=== PATIENT | female | born 1955 | race African-American/Black ===

== ENCOUNTER → 2021-11-24 14:32 | Outpatient (CLI) | payer MEDICARE, OTHER, SELFPAY ==
--- NOTE | ~2021-11-24 | XR_ITS ---
EXAMINATION: XR knee RT 2V DATE: 11/24/2021 15:03 INDICATION: Right knee pain TECHNIQUE: Standing AP and lateral views of the right knee were obtained. COMPARISON: None. FINDINGS: Alignment is normal. No fracture. Mild joint space narrowing in the lateral compartment. Small margin al osteophytes with relatively preserved joint space in the medial and patellofemoral compartments. S oft tissues are unremarkable. No right knee joint effusion. IMPRESSION: 1. Tricompartmental osteoarthritis, mild in the lateral compartment and minimal in the medial and pat ellofemoral compartments. Reviewed, dictated and finalized at location A. HER TENDER HELPER IMPRESSION: 1. Tricompartmental osteoarthritis, mild in the lateral compartment and minimal in the medial and patellofemoral compartments.
== END ==
PROVIDERS: Visit Provider Nurse Practitioner Family
DX: M17.11 Unilateral primary osteoarthritis, right knee (principal)
CPT/HCPCS: 73560

== ENCOUNTER → 2021-12-01 12:02 | Outpatient (CLI) | payer MEDICARE, OTHER, SELFPAY ==
--- NOTE | ~2021-12-01 | MR_ITS ---
EXAMINATION: MR lumbar spine wo con EXAM DATE: 12/01/2021 12:51 INDICATION: LBP lower back pain TECHNIQUE: Multi-sequential, multiplanar MR images of the lumbar spine were obtained without contrast . Sagittal T1, T2, T2 fat saturation images. Axial T2 weighted images. Correlation was made with [facility] x-ray 2008. FINDINGS: There is moderate to severe disc disease at L4-5, moderate at L3-4 with 5 mm anterolisthesi s, but no L3 spondylolysis suspected. Congenitally narrow L5-S1 disc height. Mild to moderate disc di sease L-1-L3. The conus medullaris terminates at the T12-L1 level and has normal signal intensity and morphology. There are no suspicious marrow signal abnormalities. Incompletely imaged right renal le christa, imaged portion is consistent with a cyst measuring about 3 cm. Level by level evaluation: T11-12: There is a minimal diffuse disc bulge. Facet arthropathy: Mild. Neural foraminal stenosis: No stenosis. Central canal stenosis: No stenosis. T12-L1: There is a minimal diffuse disc bulge. Facet arthropathy: None. Neural foraminal stenosis: No stenosis. Central canal stenosis: No stenosis. L1-L2: There is a mild diffuse disc bulge. Facet arthropathy: Mild to moderate. Neural foraminal stenosis: Mild left. Central canal stenosis: Minimal. L2-L3: There is a mild diffuse disc bulge. Facet arthropathy: Moderate. Neural foraminal stenosis: Moderate bilateral. Central canal stenosis: Mild. L3-L4: There is a moderate diffuse disc bulge. Facet arthropathy: Moderate to severe. Neural foraminal stenosis: Moderate right, mild to moderate left. Central canal stenosis: Mild. L4-L5: There is a mild diffuse disc bulge. Facet arthropathy: Mild to moderate. Neural foraminal stenosis: Mild to moderate bilateral, left greater than right. Central canal stenosis: No stenosis. L5-S1: There is a minimal diffuse disc bulge. Facet arthropathy: Mild. Neural foraminal stenosis: No stenosis. Central canal stenosis: No stenosis. IMPRESSION: 1. L2-3 moderate bilateral neural foraminal stenosis. 2. L3-4 grade 1 anterolisthesis, moderate right neural foraminal stenosis. 3. Moderate to severe L4-5 disc disease. Reviewed, dictated and finalized at location B. INUITY READER
== END ==
PROVIDERS: PCP Family Medicine; Visit Provider Nurse Practitioner Family
DX: M54.59 Other low back pain (principal); M51.36 Other intervertebral disc degeneration, lumbar region
CPT/HCPCS: 72148

== ENCOUNTER → 2021-12-01 12:10 | Outpatient (CLI) | payer MEDICARE, OTHER, SELFPAY ==
--- NOTE | ~2021-12-01 | MM_ITS ---
EXAMINATION: MM screening nena RT w eduardo HISTORY: Screening TECHNIQUE: Craniocaudal and mediolateral oblique 3-D tomosynthesis images were obtained and synthetic 2-D images were generated. CAD analysis was submitted and interpreted. COMPARISON: 06/16/2019 BREAST PARENCHYMAL COMPOSITION: Breast composed of scattered areas of fibroglandular density. FINDINGS: There is no evidence of suspicious mass, calcification, or architectural distortion to sugg est malignancy in the right breast. There has been no suspicious interval change. IMPRESSION: 1. No mammographic evidence of malignancy. 2. Recommend routine screening mammography in one year. BI-RADS Category 1: Negative Reviewed, dictated and finalized at location A. RINARIAN HELPER
== END ==
PROVIDERS: PCP Family Medicine; Visit Provider Family Medicine
DX: Z12.31 Encounter for screening mammogram for malignant neoplasm of breast (principal)
CPT/HCPCS: 77063; 77067

== ENCOUNTER 2022-11-25 10:39 | Emergency (ER) | payer MEDICARE, OTHER, SELFPAY ==
[2022-11-25 10:45] VITALS: BP 148/77; PULSE 68; RESP 18; TEMP 36.1; O2SAT 99
--- NOTE | 2022-11-25 11:51 | ED.BACK ---
HPI - Back Pain/Injury General Chief Complaint: Back Pain/Injury Stated Complaint: Back Pain Time Seen by Provider: 11/25/22 11:11 Source: patient and family Mode of arrival: ambulatory Limitations: no limitations History of Present Illness HPI Narrative: 67 years old -[place] female came to the emergency room with her from home complaining of pain at the right lower back, lumbar spine and sacrum and sacroiliac area started 3 days ago. History of advanced arthritis and spinal stenosis, on hydrocodone as needed, which sometime causing rash, patient preferred to not use it every day. Patient been driving for longer hours over the last few days which high likely triggered her lower back pain. She denies any fever, chills, nausea, vomiting, urinary symptoms, chest pain abdominal pain. Patient reports numbness of the right buttock. Patient had similar symptoms in the past on the left side and was treated with cortisone injection and physical therapy. Basically patient came today requesting a pain shot Pain worse with certain movement and position, better with certain position Related Data Home Medications Medication Instructions Recorded Confirmed albuterol sulfate 90 mcg/actuation inhalation 11/11/19 aerosol inhaler (ProAir HFA) ezetimibe 10 mg tablet (Zetia) mg 11/11/19 fluticasone 500 mcg-salmeterol 50 inhalation 11/11/19 mcg/dose blistr powdr for inhalation (Advair Diskus) metformin 500 mg tablet mg 11/11/19 verapamil 240 mg tablet,extended mg PO 11/11/19 release Allergies Allergy/AdvReac Type Severity Reaction Status Date / Time latex Allergy Intermediate RASH Verified 11/25/22 10:40 codeine Allergy Mild RASH Verified 11/25/22 10:40 Penicillins Allergy Mild RASH Verified 11/25/22 10:40 Review of Systems Review of Systems: All systems reviewed & are unremarkable except as noted in HPI and below Exam Narrative: General appearance: Well-developed, well-nourished Skin: Normal color Head: Normocephalic, nontraumatic Eyes: Clear conjunctiva ENT: Oropharynx normal, ears normal, nose normal Neck: Supple, nontender Chest and respiratory: Airway patent, no respiratory distress, no accessory muscle use Heart: Regular rate/rhythm Abdomen: Soft, nontender, no organomegaly, quiet bowel sounds Vascular: Normal peripheral pulses, normal capillary refill. Musculoskeletal: Diffuse tenderness right lower back, right buttock, sacroiliac joint area with deep palpation. Limited range of motion of the right hip because of the pain. No bruises, no swelling, no rash Neurologic: Alert and oriented ?3, RETAIL CASHIER ASSOCIATE is normal as tested, no gross motor deficit Course Vital Signs Vital signs: Vital Signs Temperature 36.1 C L 11/25/22 10:45 Pulse Rate 68 11/25/22 10:45 Respiratory Rate 18 11/25/22 10:45 Blood Pressure 148/77 H 11/25/22 10:45 Pulse Oximetry 99 11/25/22 10:45 Oxygen Delivery Room Air 11/25/22 10:45 Temperature 36.1 C L 11/25/22 10:45 Pulse Rate 62 11/25/22 12:04 Respiratory Rate 18 11/25/22 12:04 Blood Pressure 156/74 H 11/25/22 12:04 Pulse Oximetry 98 11/25/22 12:04 Oxygen Delivery Room Air 11/25/22 10:45 MDM - Back Pain/Injury MDM Narrative Medical decision making narrative: Patient is 67 years old -[place] female came to the hospital with pain at the right lower back, started 3 days ago, similar to her previous history of intermittent lower back pain secondary to sacroiliitis, spinal stenosis and chronic arthritis. Patient had a lot of sitting, driving for longer hours in the last few days which high likely the underlying cause of her symptoms. She denied any feve
[2022-11-25] MEDS: IBUPROFEN 600 MG TABLET PO (11:57)
[2022-11-25] MEDS: ONDANSETRON HCL ODT 4 MG TABLET PO (11:57)
[2022-11-25] MEDS: diazePAM (*CRX) 5 MG TABLET PO (11:57)
[2022-11-25] MEDS: HYDROmorphone HCL INJ (*CRX) 1 MG/ML SYR IM (11:58)
[2022-11-25 12:04] VITALS: BP 156/74; PULSE 62; RESP 18; O2SAT 98
== END 2022-11-25 13:39 | disposition home or self-care (01) ==
PROVIDERS: Emergency Provider Emergency Medicine; PCP Family Medicine
DX: M54.50 Low back pain, unspecified (principal); G89.29 Other chronic pain; M48.00 Spinal stenosis, site unspecified; E11.9 Type 2 diabetes mellitus without complications; J45.909 Unspecified asthma, uncomplicated; E78.00 Pure hypercholesterolemia, unspecified; I10 Essential (primary) hypertension; Z79.84 Long term (current) use of oral hypoglycemic drugs
CPT/HCPCS: 96372; 99283; A9270; J1170

== ENCOUNTER 2023-10-25 07:55 | Emergency (ER) | payer MEDICARE, OTHER, SELFPAY ==
--- NOTE | ~2023-10-25 | XR_ITS ---
EXAMINATION: XR shoulder RT min 2V INDICATION: Right shoulder pain TECHNIQUE: Four views of the right shoulder are submitted. COMPARISON: None FINDINGS: Normal alignment. No fracture. There is moderate osteoarthritis of the acromioclavicular an d glenohumeral joints. Soft tissues are unremarkable. IMPRESSION: 1. No acute osseous abnormality. Reviewed, dictated and finalized at location L. ORATOR LOADER
--- NOTE | ~2023-10-25 | XR_ITS ---
EXAMINATION:XR_[id number]_CR DATE: 10/25/2023 08:51 INDICATION: Neck pain TECHNIQUE: AP, lateral, and odontoid views of the cervical spine are provided. COMPARISON: None FINDINGS: Alignment is normal. The odontoid process is intact. No fracture is identified. The vertebr al body heights are maintained. There is moderate loss of intervertebral disc space height throughout the cervical spine. There is multilevel moderate to severe facet and uncovertebral joint osteoarthri tis. Surgical clips project over the left upper mediastinum. Prevertebral soft tissues are normal. IMPRESSION: 1. Moderate to severe cervical spondylosis without acute findings. Reviewed, dictated and finalized at location L. URCE RECOVERY SPECIALIST
[2023-10-25 07:55] VITALS: BP 159/102; PULSE 66; RESP 16; TEMP 36.2; O2SAT 97
--- NOTE | 2023-10-25 08:25 | ED.GENADULT ---
HPI - General Adult General Chief complaint: Extremity Injury, Upper Stated complaint: R SHOULDER AND NECK PAIN Time Seen by Provider: 10/25/23 08:00 History of Present Illness HPI narrative: 68-year-old female presenting to emergency department for evaluation of right shoulder and right back pain. Patient reports the pain did wake her up from sleeping. Patient describes muscular tenderness of right shoulder and right lateral neck. Patient did not take any medication for pain control. Patient reports approximately 1 month ago she did have a total hip. Patient denies any current chest pain or shortness of breath. Related Data Home Medications Medication Instructions Recorded Confirmed albuterol sulfate 90 mcg/actuation inhalation 11/11/19 aerosol inhaler (ProAir HFA) ezetimibe 10 mg tablet (Zetia) mg 11/11/19 fluticasone 500 mcg-salmeterol 50 inhalation 11/11/19 mcg/dose blistr powdr for inhalation (Advair Diskus) metformin 500 mg tablet mg 11/11/19 verapamil 240 mg tablet,extended mg PO 11/11/19 release Allergies Allergy/AdvReac Type Severity Reaction Status Date / Time latex Allergy Intermediate RASH Verified 10/25/23 08:07 codeine Allergy Mild RASH Verified 10/25/23 08:07 Penicillins Allergy Mild RASH Verified 10/25/23 08:07 Review of Systems Review of Systems: All systems reviewed & are unremarkable except as noted in HPI and below Exam Narrative: APPEARANCE: Well appearing, no pain, no distress, well-nourished. HEAD: normocephalic, atraumatic. EYES: PERRLA/EOMI, conjunctivae clear. NOSE: Normal no drainage EARS:TMS clear with good light reflex. THROAT: Pharynx clear, no exudate. NECK: Supple. No adenopathy, no masses. RESPIRATORY: Airway patent, respirations nonlabored. Clear to auscultation bilaterally, no rales, rhonchi, wheezing. CARDIOVASCULAR: Regular rate and rhythm without murmurs rubs or gallops. ABDOMINAL: Soft, nontender, nondistended, normal bowel sounds MUSCULOSKELETAL: Reproducible right lateral and right trapezius tenderness to palpation NEURO: Alert. Cranial nerves II through XII intact. grossly intact SKIN: Warm, dry. Normal Color Course Course Emergency Course: 68-year-old female present to the emergency department for evaluation of right shoulder and right lateral neck pain. Patient did feel improved with treatment. X-ray showed no fracture dislocation. Patient was updated on the results of workup and plan for treatment for home. Patient to be provided Flexeril for home and patient was encouraged to take her home Tylenol and ibuprofen for pain control. Patient was encouraged to have close follow-up with her primary care physician. All questions concerns were addressed. Vital Signs Vital signs: Vital Signs Temperature 97.2 F L 10/25/23 07:55 Pulse Rate 66 10/25/23 07:55 Respiratory Rate 16 10/25/23 07:55 Blood Pressure 159/102 H 10/25/23 07:55 Pulse Oximetry 97 10/25/23 07:55 Oxygen Delivery Room Air 10/25/23 07:55 Temperature 97.2 F L 10/25/23 07:55 Pulse Rate 66 10/25/23 07:55 Respiratory Rate 16 10/25/23 07:55 Blood Pressure 159/102 H 10/25/23 07:55 Pulse Oximetry 97 10/25/23 07:55 Oxygen Delivery Room Air 10/25/23 07:55 Medical Decision Making Differential Diagnosis Differential Diagnosis: Shoulder pain, neck pain Vital Signs Vital Signs: Vital Signs Temperature 97.2 F L 10/25/23 07:55 Pulse Rate 66 10/25/23 07:55 Respiratory Rate 16 10/25/23 07:55 Blood Pressure 159/102 H 10/25/23 07:55 Pulse Oximetry 97 10/25/23 07:55 Oxygen Delivery Room Air 10/25/23 07:55 Temperature 97.2 F L 10/25/23 07:55 Pulse Rate 66 10/25/23 07:55 Respiratory Rate 16 10/25/23 07:55 Blood Pressure 159/102 H 10/25/23 07:55 Pulse Oximetry 97 10/25/23 07:55 Oxygen Delivery Room Air 10/25/23 07:55 Imaging Data Radiologist's impression: Impressions Cervical Spine X-R
[2023-10-25] MEDS: HYDROmorphone HCL INJ (*CRX) 1 MG/ML SYR 0.5 MG IV PUSH (08:30)
[2023-10-25] MEDS: CYCLOBENZAPRINE HCL 10 MG TABLET PO (08:30)
== END 2023-10-25 10:30 | disposition home or self-care (01) ==
PROVIDERS: Emergency Provider Emergency Medicine; PCP Family Medicine
DX: S16.1XXA Strain of muscle, fascia and tendon at neck level, initial encounter (principal); E11.9 Type 2 diabetes mellitus without complications; Z79.84 Long term (current) use of oral hypoglycemic drugs; M47.812 Spondylosis without myelopathy or radiculopathy, cervical region; X58.XXXA Exposure to other specified factors, initial encounter
CPT/HCPCS: 72040; 73030; 96374; 99284; A9270; J1170

== ENCOUNTER 2024-01-03 10:42 | Emergency (ER) | payer MEDICARE, OTHER, SELFPAY ==
--- NOTE | ~2024-01-03 | XR_ITS ---
EXAMINATION: XR chest 2V DATE: 01/03/2024 11:52 INDICATION: Midsternal chest pain. Hypertension. TECHNIQUE: PA and lateral views of the chest were obtained. COMPARISON: Chest radiograph dated 10/03/2017 FINDINGS: Mild streaky bibasilar atelectasis. No pulmonary edema, pleural effusion or pneumothorax. The cardiom ediastinal silhouette is normal. Postoperative change of likely prior left mastectomy with left axill ricardo lymph node dissection. Surgical clips project over the region of the AP window. Moderate thoracic spondylosis. IMPRESSION: 1. Mild streaky bibasilar atelectasis. Reviewed, dictated and finalized at location A. HT MECHANIC
--- NOTE | ~2024-01-03 | CT_ITS ---
EXAMINATION: CTA chest PE abdomen pel DATE: 01/03/2024 15:59 INDICATION: Chest and abdominal pain TECHNIQUE: Computed tomography angiography (CTA) of the chest was performed with 100 mL Omnipaque-350 intravenous contrast timed to evaluate the pulmonary arteries. Subsequent postcontrast images of the abdomen and pelvis are obtained. Coronal maximum intensity projection 3D-reconstructions were create d by the technologist. The dose-length product (DLP) was 774.12 mGy-cm. Automated exposure control an d iterative reconstruction technique were employed. COMPARISON: None. FINDINGS: CTA CHEST: The pulmonary arteries are well-opacified. Although slightly limited by respiratory motion , no pulmonary embolism is identified. There are changes of left mastectomy. There is mild atelectasi s at the lungs. No pleural effusion or pneumothorax. No pathologically enlarged thoracic lymph nodes are identified. Cardiomegaly is noted. There are changes of left axillary lymph node dissection. Ther e is moderate thoracic spondylosis. ABDOMEN/PELVIS CT: There is a 12 mm cyst of the left hepatic lobe. The spleen, gallbladder, and adren al glands are normal. There is a 6 mm cystic lesion in the body of the pancreas. The left kidney is u nremarkable. There is a 3.5 cm cyst of the right kidney. No pathologically enlarged abdominal or pelv ic lymph nodes are identified. No free intraperitoneal gas or evidence of bowel obstruction. The uter us is mildly enlarged and contains multiple fibroids. There are changes of left hip arthroplasty. The re is severe lumbar spondylosis at L4-5. A moderate volume of colonic stool is present. IMPRESSION: 1. No pulmonary embolus identified. Sensitivity slightly limited by respiratory motion. 2. No acute findings of the abdomen or pelvis. 3. 6 mm cystic lesion in the body of the pancreas. The differential diagnosis includes pseudocyst, in traductal papillary mucinous neoplasm (IPMN), mucinous cystic neoplasm (MCN), and the less common ser ous cystadenoma and neuroendocrine tumor. Correlate for history of pancreatitis. Follow-up pancreas p rotocol CT or MRI in two years is recommended. Reviewed, dictated and finalized at location L. 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 No pulmonary embolus identified. Sensitivity slightly limited by respiratory motion. 2. No acute findings of the abdomen or pelvis. 3. 6 mm cystic lesion in the body of the pancreas. The differential diagnosis i ncludes pseudocyst, intraductal papillary mucinous neoplasm (IPMN), mucinous cy stic neoplasm (MCN), and the less common serous cystadenoma and neuroendocrine tumor. Correlate for history of pancreatitis. Follow-up pancreas protocol CT or MRI in two years is recommended.
--- NOTE | 2024-01-03 10:45 | ECG_ITS ---
Measurements Intervals [place] Rate: 62 P: 13 OR: 186 QRS: -54 QRSD: 91 T: 2 QT: 422 QTc: 429 Interpretive Statements SINUS RHYTHM LEFT ANTERIOR FASCICULAR BLOCK [QRS AXIS <= -45, QR IN I, RS IN II] MODERATE VOLTAGE CRITERIA FOR LVH, CONSIDER NORMAL VARIANT [MEETS CRITERIA IN ONE OF: R(aVL), S(V1), R(V5), R(V5/V6)+S(V1)] POSSIBLE SEPTAL MYOCARDIAL INFARCTION , OF INDETERMINATE AGE [30 ms Q WAVE IN V1/V2] NO PREVIOUS ECG AVAILABLE FOR COMPARISON Electronically Signed On 01-03-2024 13:29:04 LICENSED MARRIAGE AND FAMILY THERAPIST by Evelyn Daniels M.D.
[2024-01-03 11:08] VITALS: BP 158/77; PULSE 63; RESP 18; TEMP 36.4; O2SAT 99
[2024-01-03 11:08] LABS: Basophils Absolute Auto 0.1 K/mm3 (0.0-0.1); Basophils Percent Auto 0.9 % (0.2-1.2); Eosinophils Absolute Auto 0.3 K/mm3 (0-0.3); Eosinophils Percent Auto 4.8 % (0-4.4); Hematocrit 42.6 % (37.0-47.0); Hemoglobin 13.6 g/dL (12.0-15.0); Immature Granulocyte Absolute 0.02 K/mm3 (0.00-0.031); Immature Granulocyte Percent A 0.3 % (0-0.5); Lymphocytes Absolute Auto 2.06 K/mm3 (0.9-3.2); Lymphocytes Percent Auto 35.6 % (18.3-44.2); Mean Corpuscular HGB Conc 31.9 g/dl (32-36); Mean Corpuscular Hemoglobin 30.2 pg (26-34); Mean Corpuscular Volume 94.5 fl (80-100); Mean Platelet Volume 10.1 fl (7.4-10.4); Monocytes Absolute Auto 0.5 K/mm3 (0.1-0.6); Monocytes Percent Auto 8.3 % (2.6-8.5); Neutrophils Absolute Auto 2.9 K/mm3 (1.3-6.7); Neutrophils Percent Auto 50.1 % (45.5-73.1); Platelet Count Result 293 k/mm3 (150-375); Red Blood Count 4.51 M/mm3 (4.2-5.4); Red Cell Distribution Width 14.5 % (11.5-14.5); White Blood Count 5.8 K/mm3 (4.5-10.0)
[2024-01-03 11:17] LABS: Alanine Aminotransferase 31 U/L (6-35); Alkaline Phosphatase 91 U/L (38-126); Anion Gap 4 mmol/L (8-16); Aspartate Amino Transferase 41 U/L (14-36); Bilirubin,Total 0.8 mg/dL (0.2-1.3); Blood Urea Nitrogen 12 mg/dL (7-17); Calcium 9.7 mg/dL (8.4-10.2); Carbon Dioxide 30 mmol/L (22-30); Chloride 104 mmol/L (98-107); Estimated CRCL calculation 71 ml/min; Estimated Glomerular Filt Rate > 60; Glucose 118 mg/dL (65-110); Lipase 112 U/L (23-300); Potassium 3.8 mmol/L (3.4-5.0); Sodium 138 mmol/L (137-145)
[2024-01-03 11:20] LABS: INR 0.9; Prothrombin Time 12.8 Seconds (11.1-14.7)
[2024-01-03 11:21] LABS: Partial Thromboplastin Time 27.2 SECONDS (22.3-36.8)
[2024-01-03 11:27] LABS: Troponin I < 0.012 ng/mL (0.000-0.034)
[2024-01-03 11:39] VITALS: PULSE 64; O2SAT 98
[2024-01-03 11:42] VITALS: BP 176/85; PULSE 56; RESP 14; O2SAT 99
[2024-01-03] MEDS: ASPIRIN 81 MG CHEWABLE TABLET 324 MG PO (11:47)
[2024-01-03 11:56] VITALS: BP 161/137; PULSE 61; RESP 22; O2SAT 98
[2024-01-03 12:01] VITALS: BP 131/119; PULSE 53; RESP 16; O2SAT 100
--- NOTE | 2024-01-03 12:05 | ED.CHESTPAIN ---
HPI - Chest Pain General Chief Complaint: Chest Pain Stated Complaint: CHest pain Time Seen by Provider: 01/03/24 11:50 History of Present Illness HPI narrative: 68 years old female complaining of sternal pain woke her up from sleep at 1 9 and has been steady since. Was 06/21 initially, on arrival to the ED the 11/21. Patient report that pain was radiating to the back, was aching, denies aggravating or relieving factors. Patient drove herself to the emergency room. Patient been losing weight at least 40 lb last few months, did not take her blood present pressure medication because she was thinking that losing weight does not need blood pressure meds. Patient also had history of diabetes and does not take her diabetes medicine because of losing weight. 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 Related Data Home Medications Medication Instructions Recorded Confirmed albuterol sulfate 90 mcg/actuation inhalation 11/11/19 aerosol inhaler (ProAir HFA) ezetimibe 10 mg tablet (Zetia) mg 11/11/19 fluticasone 500 mcg-salmeterol 50 inhalation 11/11/19 mcg/dose blistr powdr for inhalation (Advair Diskus) verapamil 240 mg tablet,extended mg PO 11/11/19 release Allergies Allergy/AdvReac Type Severity Reaction Status Date / Time latex Allergy Intermediate RASH Verified 01/03/24 11:43 codeine Allergy Mild RASH Verified 01/03/24 11:43 Course Vital Signs Vital signs: Vital Signs Temperature 36.4 C L 01/03/24 11:08 Pulse Rate 63 01/03/24 11:08 Respiratory Rate 18 01/03/24 11:08 Blood Pressure 158/77 H 01/03/24 11:08 Pulse Oximetry 99 01/03/24 11:08 Oxygen Delivery Room Air 01/03/24 11:08 Temperature 36.4 C L 01/03/24 11:08 Pulse Rate 68 01/03/24 15:48 Respiratory Rate 18 01/03/24 15:48 Blood Pressure 179/93 H 01/03/24 15:48 Pulse Oximetry 98 01/03/24 15:48 Oxygen Delivery Room Air 01/03/24 11:39 MDM - Chest Pain MDM Narrative Medical decision making narrative: Patient presents with sternal chest pain wake her up from sleep last night, 06/21, on arrival to the ED 11/21, vital signs are stable, physical examination is unremarkable, blood workup today showed elevated D-dimer, CTA chest and CT abdomen showed no pulmonary embolism, 6 mm pancreatic cyst which could be malignant, copy of the CT scan was given to the patient prior to discharge and was informed about the possibility of malignancy and the need to follow-up with her family physician as soon as possible for CT scan and MRI follow-up 2 years. Patient's chest pain could be secondary to anxiety, depression, musculoskeletal, EKG and troponin showed no acute abnormalities Differential Diagnosis Differential diagnosis: Likely other (As above) Medical Records Data Attestation: I reviewed the patient's medical records. Lab Data Attestation: I reviewed the patient's lab results. 01/03/24 10:58 01/03/24 10:58 Labs: Lab Results 01/03/24 01/03/24 01/03/24 Range/Units 10:58 10:58 13:54 WBC 5.8 (4.5-10.0) K/mm3 RBC 4.51 (4.2-5.4) M/mm3 Hgb 13.6 (12.0-15.0) g/dL Hct 42.6 (37.0-47.0) % MCV 94.5 (80-100) fl MCH 30.2 (26-34) pg MCHC 31.9 L (32-36) g/dl RDW 14.5 (11.5-14.5) % Plt Count 293 (150-375) k/mm3 MPV 10.1 (7.4-10.4) fl Immature Gran % (Auto) 0.3 (0-0.5) % Neut % (Auto) 50.1 (45.5-73.1) % Lymph % (Auto) 35.6 (18.3-44.2) % [place] % (Auto) 8.3 (2.6-8.5) % Eos % (Auto) 4.8 H (0-4.4) % Baso % (Auto) 0.9 (0.2-1.2) % Lymph # (Auto) 2.06 (0.9-3.2) K/mm3 [place] # (Auto) 0.5 (0.1-0.6) K/mm3 Eos # (Auto) 0.3 (0-0.3) K/mm3 Baso # (Auto) 0.1 (0.0-0.1) K/mm3 Abs Immat Gran (auto) 0.02 (0.00-0.031) K/mm3 Absolute Neuts (auto) 2.9 (1.3-6.7) K/mm3 Absolute Nucleated RBC 0.0 (0.0-0.012) K/mm3 Nucleated RBC % 0.0 (0.0-0.2) % PT
[2024-01-03 13:24] LABS: Lipase 119 U/L (23-300)
[2024-01-03 13:25] LABS: D Dimer 0.73 ug/mL (<0.48)
[2024-01-03 13:35] LABS: NT Pro B Type Natriuretic Pept 423 pg/mL (19.9-100)
--- NOTE | 2024-01-03 13:38 | ECG_ITS ---
Measurements Intervals [place] Rate: 53 P: 57 [place]: 220 QRS: -51 QRSD: 89 T: 8 QT: 481 QTc: 452 Interpretive Statements SINUS BRADYCARDIA WITH FIRST DEGREE AV BLOCK POSSIBLE LEFT ATRIAL ENLARGEMENT [-0.1mV P WAVE IN V1/V2] LEFT ANTERIOR FASCICULAR BLOCK [QRS AXIS <= -45, QR IN I, RS IN II] CONSIDER PREVIOUS SEPTAL NM ABNORMAL ECG COMPARED TO ECG 01/03/2024 10:47:17 LONGER [place] INTERVAL Electronically Signed On 01-04-2024 12:09:37 CENTRIFUGAL DRIER OPERATOR by Partha Martínez M.D.
[2024-01-03 14:21] LABS: Troponin I < 0.012 ng/mL (0.000-0.034)
[2024-01-03 15:48] VITALS: BP 179/93; PULSE 68; RESP 18; O2SAT 98
--- NOTE | 2024-01-03 16:52 | PC.NURSE ---
Pt denied 6 hr trop and EKG at this time. Wants to sign out AMA.
== END 2024-01-03 17:08 | disposition home or self-care (01) ==
PROVIDERS: Emergency Medicine; Emergency Provider Emergency Medicine; PCP Family Medicine
DX: R07.2 Precordial pain (principal); K86.2 Cyst of pancreas; T46.5X6A Underdosing of other antihypertensive drugs, initial encounter; T38.3X6A Underdosing of insulin and oral hypoglycemic [antidiabetic] drugs, initial encounter; Z91.128 Patient's intentional underdosing of medication regimen for other reason; E11.9 Type 2 diabetes mellitus without complications; I10 Essential (primary) hypertension; Z96.649 Presence of unspecified artificial hip joint; Z90.12 Acquired absence of left breast and nipple; I44.4 Left anterior fascicular block; R00.1 Bradycardia, unspecified; R94.31 Abnormal electrocardiogram [ECG] [EKG]
CPT/HCPCS: 36415; 71046; 71275; 74177; 80053; 83690; 83880; 84484; 85025; 85380; 85610; 85730; 93005; 99284; A9270; Q9967

== ENCOUNTER 2025-01-30 15:14 | Outpatient (CLI) | payer MEDICARE, OTHER, SELFPAY ==
--- NOTE | ~2025-01-30 | MR_ITS ---
EXAMINATION: MR lumbar spine wo con DATE: 01/30/2025 15:44 INDICATION: Lumbar radiculopathy TECHNIQUE: Magnetic resonance imaging (MRI) of the lumbar spine was performed without intravenous con trast. Sequences included sagittal T2-weighted FSE, sagittal T2-weighted FS FSE, sagittal T1-weighted FSE, and axial T2-weighted FSE. COMPARISON: 12/01/2021 FINDINGS: Bilateral hypoplastic riblets at T12. Partially sacralized L5 segment. 2 mm anterolisthesis L2 on L3 and 5 mm anterolisthesis L3 on L4. No evident associated pars interarticularis defects. Vertebral bod y heights are normal. Severe disc height loss with mild fibrovascular degenerative endplate changes a t L4-L5. Marrow signal is otherwise unremarkable. Moderate disc height loss at L3-L4 and L5-S1, the l atter which may be at least in part developmental, given the partial sacralization of L5. Mild disc h eight loss at L2-L3. There are annular fissures from L2-L3 through L4-L5. The conus medullaris termin ates at T12-L1. There is normal signal in the caudal spinal cord. Partially visualized at least 3.6 s imilar T2 hyperintense right renal cyst. Paravertebral soft tissues are unremarkable. The following d isc levels are specifically discussed: T11-T12: Annular fissure and right paracentral disc extrusion with disc material extending a couple m illimeter cephalad to the level of the inferior endplate of T11. Moderate right and severe left sided facet osteoarthritis. There is mild bilateral neural foraminal stenosis. There is mild central canal stenosis. T12-L1: Minimal diffuse disc bulge. There is mild left and moderate right facet joint osteoarthritis. There is no neural foraminal stenosis. There is no central canal stenosis. L1-L2: Disc is bulging. There is mild hypertrophy of the ligamentum flavum. There is mild to moderat e bilateral facet joint osteoarthritis. There is mild right and mild to moderate left neural foramina l stenosis. There is mild central canal stenosis. L2-L3: Disc is bulging. There is hypertrophy of the ligamentum flavum. There is severe bilateral face t joint osteoarthritis. There is bilateral neural foraminal stenosis. There is moderate central canal stenosis. L3-L4: Disc is bulging. There is severe bilateral facet joint osteoarthritis. There is mild left and moderate right neural foraminal stenosis. There is mild central canal stenosis. L4-L5: Disc is minimally bulging with L4 inferior endplate osteophytes at the bilateral foraminal zon es. There is moderate bilateral facet joint osteoarthritis. There is up to moderate right and moderat e left neural foraminal stenosis. There is no central canal stenosis. L5-S1: Disc is minimally bulging. There is moderate bilateral facet joint osteoarthritis. There is no neural foraminal stenosis. There is no central canal stenosis. IMPRESSION: 1. Mild interval progression in moderate to severe mid to lower lumbar predominant spondylosis. Reviewed, dictated and finalized at location B. IMPRESSION: 1. Mild interval progression in moderate to severe mid to lower lumbar predomin ant spondylosis.
== END 2025-01-30 15:15 | disposition home or self-care (01) ==
LOC: MICIMG 15:15
PROVIDERS: PCP Nurse Practitioner Family; Visit Provider Nurse Practitioner Family
DX: M47.26 Other spondylosis with radiculopathy, lumbar region (principal)
CPT/HCPCS: 72148

== ENCOUNTER 2025-04-11 22:16 | Emergency (ER) | payer MEDICARE, OTHER, SELFPAY ==
--- OUTSIDE RECORDS SUMMARY | 2025-04-11 22:19 | XMS_ITS | Clinical Summary ---
Author Organization [facility] Address [address] [place] [address] Care Team Providers Care Rn Outpatient Surgery Name Role Phone Mike Boyd MD Unavailable [phone] Agustín Glasgow MD Primary Care Provider Allergies Active Allergy Reactions Criticality Noted Date Comments Codeine Unknown High 05/04/2010 Latex Rash,Unknown 11/30/2009 Reaction: Rash, Zzkqteh-Zbd-Tcq Reductase Inhibitors Muscle pain Medium 06/19/2024 Sulfa Unknown High 03/09/2010 Medications triamcinolone (KENALOG) 0.1 % cream 10/21/20 21 Active valACYclovir (VALTREX) 1 gram tabletIndicati ons:for cold sores Take 1 tablet (1,000 mg total) by mouth daily as needed (for cold sores) Active naproxen (ALEVE) 220 mg tablet Take 1 tablet (220 mg total) by mouth 2 (two) times a day as needed for pain Active albuterol (PROAIR RESPICLICK) 90 mcg/actuation inhalerIndicat ions:if needed for sob Inhale 2 puffs every 6 (six) hours as needed for shortness of breath 1 each 11 10/16/20 24 Active fluticasone propion/salmet macario (WIXELA INHUB INHAL) See Instructions, # 60 EA, 11 total refill(s), Hard Stop, HEBER 10/16/20 24 025 Active losartan-hydro CHLOROthiazide (HYZAAR) 100-12.5 mg per tabletIndicati ons:hypertensi on Take 1 tablet by mouth daily 100 tablet 1 03/03/20 25 Active tirzepatide (Mounjaro) 12.5 mg/0.5 mL pen injector injectionIndic ations:type 2 diabetes mellitus Inject 0.5 mL (12.5 mg total) under the skin once a week 2 mL 2 03/17/20 25 Active acetaminophen (TYLENOL) 500 mg tabletIndicati ons:Back Pain Take 1 tablet (500 mg total) by mouth every 6 (six) hours as needed for pain Active meloxicam (MOBIC) 15 mg tabletIndicati ons:Chronic midline low back pain with right-sided sciatica Take 1 tablet (15 mg total) by mouth daily 30 tablet 1 03/17/20 25 026 Active ezetimibe (Zetia) 10 mg tablet Take 1 tablet (10 mg total) by mouth daily 30 tablet 3 03/18/20 25 Active verapamil ER (VERELAN) 360 mg 24 hr capsule Take 1 capsule (360 mg total) by mouth nightly 30 capsule 03/24/20 25 026 Active verapamil ER (VERELAN) 360 mg 24 hr capsule Take 1 capsule (360 mg total) by mouth nightly 30 capsule 06/13/20 24 025 Discontinued(Re order) tirzepatide (Mounjaro) 10 mg/0.5 mL pen injector injectionIndic ations:Hyperte nsion associated with diabetes (HCC) INJECT 0.5 ML (10 MG TOTAL) UNDER THE SKIN ONCE A WEEK 2 mL 1 02/14/20 25 025 Discontinued Active Problems Problem Noted Date Diagnosed Date Statin myopathy 10/14/2024 06/19/2024 History of colonic polyps 09/17/2024 Encounter for screening colonoscopy 09/17/2024 Encounter for Medicare annual wellness exam 03/2024 Assessment & Plan (09/16/2024 8:58 AM IT PROGRAM MANAGER): A(n) yearly Medicare Annual Wellness Visit has been performed today. Virginia Calvin is not up to date on screening tests. She is in need of Colon cancer screening. She is up to date on needed preventative vaccinations; She is in need of Influenza. We discussed healthy lifestyle habits, educational material has been given. Medications reviewed, changes documented as per the medical record and discussed with patient along with risks vs benefits. Specific topics reviewed: drugs, ETOH, and tobacco, importance of regular dental care, importance of regular exercise, importance of varied diet, limit TV, media violence, minimize junk food, and seat belts. 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 Virginia Orellana Jeannie is not up to date on screening tests. She is in need of DEXA, Breast cancer screening, hepatitis B, and Cholesterol screening-. She is not up to date on needed preventative vaccinations; She is in need of Pneumonia (Prevnar-13 or Pneumovax-23). We discussed healthy lifestyle habits, educational material has been given. Medications reviewed, changes documented as per the medical record and discussed with patient along with risks vs benefits. Return in 3 months Cyst of pancreas 01/03/2024 Aftercare following left hip joint replacement s urgery 12/03/2023 Elevated liver enzymes 10/01/2023 Seasonal allergic rhinitis 08/20/2023 Vaginitis 08/20/2023 Obesity 05/09/2023 Chronic low back pain 03/19/2023 Sacroiliac joint pain 10/21/2021 Type 2 diabetes mellitus without complication Hyperlipidemia 12/01/2016 Overview (10/14/2024): Recommended Action: Provider to bill Statin myopathy (G72.0) with assessment/plan in note annually to remove patient from [employer] Statin Gap measure(s). Do not recommend statin re-trial given history of intolerance (myopathy). Consider non-statin therapy (e.g., Repatha) to improve LDL to goal of less than 70 mg/dL (per ADA 2023). Cardiomegaly 12/01/2016 DCIS (ductal carcinoma in situ) of breast 2015 Asthma 05/12/2015 Overview (02/16/2017): Asthma Malignant neoplastic disease 05/12/2015 Overview (02/16/2017): Cancer Heart murmur 05/12/2015 Overview (02/16/2017): Heart murmur Diabetes mellitus 05/12/2015 Overview (02/16/2017): Diabetes Hypertension associated with diabetes 05/12/2015 Overview (02/16/2017): HTN - Hypertension Calcinosis, Raynaud phenomen on, esophageal dysfunction, sclerodactyly, and telangiectasia (CREST) syndrome 03/28/2014 Overview (02/15/2017): CREST Syndrome Chest pain, unspecified 11/12/1959 Resolved Problems Problem Noted Date Diagnosed Date Resolved Date Primary osteoarthritis of left hip 09/26/2022 12/03/2023 Encounters Date Type Department Care Team Description 04/07/2025 Telephone [facility] Accountable Care Organization [address] [place] [id number] Krista Quiñonez MA Chart Review (Med adherence) 03/18/2025 Results Follow-Up [facility] Primary Care at [address] [phone] Agustín Glasgow MD CBC with auto differential, Comprehensive metabolic panel, Hemoglobin A1c, Additional followed-up results: 5 03/17/2025 9:48 AM CDT - 03/17/2025 11:59 PM CDT Hospital Encounter [address] [address] Hypertension associated with diabetes (HCC); Vitamin D insufficiency Discharge Disposition: Discharge to home or self care 03/17/2025 9:45 AM CDT Lab [facility] Outpatient Lab at [address] [phone] 03/17/2025 9:15 AM CDT Office Visit [facility] Primary Care at [address] [phone] Agustín Glasgow MD Hypertension associated with diabetes (HCC) (Primary Dx); Mixed hyperlipidemia; Mild intermittent asthma without complication; Chronic midline low back pain with right-sided sciatica; Vitamin D insufficiency 03/17/2025 ACO Clinical Pharmacist [address] [address] Yesenia Baugh [facility] 03/12/2025 ACO Clinical Pharmacist [address] [address] Yesenia Baugh, [facility] 03/10/[address] [address] Krista Quiñonez MA Chart Review (Med adherence) 03/10/2025 Telephone [facility] Medical [facility] Gastroenterology at [place] [address] [place] [phone] Sonya Gómez MA 03/09/2025 9:30 AM CDT - 03/09/2025 10:00 AM CDT Surgery [facility] [address] [place] [address] Margarito Blair, DO COLONOSCOPY 03/09/2025 9:14 AM CDT Anesthesia Event [address] [address] Anthony Couch MD Alexander, Jeffrey Michael, DO 03/09/2025 8:25 AM CDT - 03/09/2025 10:16 AM CDT Hospital Encounter [facility] [address] [place] [address] Margarito Blair, Discharge Disposition: Discharge to home or self care 03/09/2025 Telephone [facility] Gastroenterology at [address] [place] [address] Sonya Gómez MA 01/27/2025 Telephone [facility] Gastroenterology at [address] [place] [address] Bonnie Bellamy Prep Instructions from Last 3 Months Immunizations Immunization Administration Dates Next Due Influenza Nasal, Unspecified 10/10/2022 Influenza, Quad, Adjuvantated, Intramuscular 08/2022 Influenza, Quadrivalent, Hig h Dose, Preservative Free, Intrr 10/10/2022,08/02/2020 Influenza, Trivalent, High D ose, Split, Preservative Free, Intramuscular 09/16/2024 Influenza, Trivalent, Preservative Free, Intramu scular 08/23/2017 Influenza, Unspecified 11/21/2021 Pneumococcal Conjugate Pcv20 06/12/2024 Tdap 07/30/2017 Surgical History Surgery Date Site/Laterality Comments SECTION section MASTECTOMY 2006 Left Mastectomy ACHILLES TENDON REPAIR Left TONSILLECTOMY/ADENOIDECTOM Y BREAST SURGERY Left breast mastecto my 2006 SECTION 1988 COLONOSCOPY 11/12/2019 - 11/11/2020 TOTAL HIP ARTHROPLASTY Left FRACTURE SURGERY 1977 Medical History Medical History Date Comments Motion sickness Asthma Adenomatous colon polyp Breast cancer (HCC) DIYA (generalized anxiety disorder) DJD (degenerative joint disease) HTN (hypertension) HLD (hyperlipidemia) DM (diabetes mellitus) (HCC) IPMN (intraductal papillary mucinous neoplasm) Obesity Seasonal allergies CREST syndrome (HCC) Cataract 2019 Family History Medical History Relation Name Comments Breast cancer Mother Ovarian cancer Mother Cancer Other 1 Mother Family history of Cancer, unknown; Hypertension Other 2 Family history of Hypertension; Ovarian cancer Sister 1 Rheum arthritis Sister 2 Rheumatoid a rthritis; Arthritis Sister 3 Kacy Cancer Sister 4 Kylie Hypertension Sister 5 Shabnam Relation Name Status Comments Mother Other 1 Mother Other 2 Sister 1 Alive Sister 2 Sister 3 Kacy Sister 4 Kylie Sister 5 Shabnam Social History Tobacco Use Types Packs/Day Years Used Date Smoking Tobacco: Never Cigarettes 0.3 1 Smokeless Tobacco: Never Tobacco Cessation:Counseling Given: Not Answered Alcohol Use Standard Drinks/Week Comments Yes 0 (1 standard drink = 0.6 oz pur e alcohol) OASIS D0700: Social Isolation Answer Da te Recorded Frequency of experiencing loneliness or isolatio n Never 10/31/2023 OASIS A1250: Transportation Answer Date Recorded Lack of Transportation (Medical) No 10/31/2023 Lack of Transportation (Non-Medical) No 10/31/2023 Patient Unable or Declines to Respond No 10/31/2023 OASIS B1300: Health Literacy Answer Milan e Recorded Frequency of needing help to read materials from doctor or pharmacy Rarely 10/31/2023 AUDIT-C Answer Date Recorded Q1: How often do you have a drink containing alc ohol? 2-4 times a month 06/12/2024 Q2: How many drinks containi ng alcohol do you have on a typical day when you are drinking? 1 or 2 06/12/2024 Q3: How often do you have si x or more drinks on one occasion? Never 06/12/2024 PHQ-2 Answer Date Recorded PHQ-2 Total Score (If total score is 3 or more points, staff should administer the PHQ-9) 1 03/17/2025 PHQ-9 Answer Date Recorded PHQ-9 Total Score 4 03/17/2025 Personal Safety Answer Date Recorded Have you ever been in or are you currently in a harmful physical or emotional relationship or is someone making you feel afraid or unsafe? Denies 03/09/2025 Comments No Sex and Gender Information Value Date Recorded Sex Assigned at Not on file Legal Sex Female 12:20 AM IT PROGRAM MANAGER Gender Identity Female 10/18/2021 6:33 AM IT PROGRAM MANAGER Sexual Orientation Straight 10/18/2021 6: 33 AM IT PROGRAM MANAGER Obstetrics History Para Term AB IAB SAB Ectopic Multiple Livin g Live Births 3 1 1 Date Outcome GA Total Labor Labor/2nd/3rd Weight Sex Type Anes PTL Ashley A1 A5 Name Clin Term Last Filed Vital Signs Vital Sign Reading Time Taken Comments Blood Pressure 110/70 03/17/2025 9:22 AM CDT Pulse 52 03/17/2025 9:22 AM CDT Temperature 35.9 C (96.7 F) 03/17/2025 9:22 AM CDT Respiratory Rate 16 03/17/2025 9:22 AM CDT Oxygen Saturation 97% 03/17/2025 9:22 AM CDT Inhaled Oxygen Concentration - - Weight 71.2 kg (157 lb) 03/17/2025 9:22 AM CDT Height 165.1 cm (5' 5) 03/17/2025 9:22 AM CDT Body Mass Index 26.13 03/17/2025 9:22 AM CDT Plan of Treatment Health Maintenance Due Date Last Done Comments Covid-19 Vaccine ( season) 2024 12/02/2022, 09/15/2021, 12/16/2020, Additional history exists Albumin Creatinine Ratio, Urine 06/12/2025 06/12/2024 Foot Exam 06/12/2025 06/12/2024, 06/12/2024 Zoster Vaccine (1 of 2) 06/12/2025 Post poned from 2005 (Insurance / Financial) Breast Cancer Screening-Mammogram 06/23/2025 06/23/2024, 12/02/2021, 12/01/2021 Dilated Eye Exam 09/16/2025 07/15/2024 Postponed f rom 07/15/2025 (Patient declined, but will receive in the future) Fall Risk Assessment 09/16/2025 09/16/2024, 10/09/20 23 Well Visit 65+ 09/16/2025 09/16/2024 Hemoglobin A1C 09/17/2025 03/17/2025, 1103/2024, 06/12/2024, Additional history exists Depression Screening 03/17/2026 03/17/2025, 03/17/2025, 12/18/2024, Additional history exists Lipid Panel 03/17/2026 03/17/2025, 06/12/2024 eGFR 03/17/2026 03/17/2025, 08/0 11/2023, 10/09/2023, Additional history exists Osteoporosis Screening-Bone Density Scan 06/23/2026 06/23/2024 DTaP/Tdap/Td Vaccine (2 - Td or Tdap) 07/30/2027 07/30/2017 Colon Cancer Screening-Colonoscopy 03/09/2035 03/09/2025 Hepatitis B Screening Completed 06/12/2024 Hepatitis C Screening Completed 06/12/2024 Pneumococcal vaccine 65+ Completed 06/12/2024 Influenza Vaccine Completed 09/16/2024, , 10/10/2022, Additional history exists Colon Cancer Screening-CT Colonography Discontinued 03/09/2025 Colon Cancer Screening-DNA Stool Discontinued 03/09/2025 Colon Cancer Screening-FIT Discontinued 03/09/2025 Colon Cancer Screening-Sigmoidoscopy Discontinued 03/09/2025 Medical Devices Implanted Type Area Electrical Instrument Repairer Device Identifier Shelf Expiration Date Model / Serial / Lot [employer] Columbia 52mm Sector Hip Shell Acetabular Gription Sterile Latex Free [id number] - [id number] Implanted:Qty: 1 on 10/08/2023 by Mike Boyd MD at [facility] Left: Hip [employer] 07/12/2033 [id number] / / [id number] [employer] Columbia 52mm 36mm Hip Neutral Liner Acetabular Altrx Sterile Latex Free [id number] - [id number] Implanted:Qty: 1 on 10/08/2023 by Mike Boyd MD at [facility] Left: Hip [employer] 06/11/2028 [id number] / / [id number] [employer] Actis Collared Hip /14 4 Standard Offset Stem Femoral [id number] - [id number] Implanted:Qty: 1 on 10/08/2023 by Mike Boyd MD at [facility] Left: Hip [employer] 11/11/2032 [id number] / / [id number] [employer] Articul/Zeeshan 36mm Cementless Hip +5mm 12/14 Taper Head Femoral Latex Free [id number] - [id number] Implanted:Qty: 1 on 10/08/2023 by Mike Boyd MD at [facility] Left: Hip [employer] 06/11/2028 [id number] / / [id number] Procedures Procedure Name Priority Date/Time Associated Diagnosis Comments EGFR Routine 03/17/2025 9:48 AM CDT Hypertension associated with diabetes (HCC) DIFFERENTIAL AUTO Routine 03/17/2025 9:4 8 AM CDT Hypertension associated with diabetes (HCC) THYROID FUNCTION CASCADE Routine 03/17/2025 9:48 AM CDT Hypertension associated with diabetes (HCC) VITAMIN D 25 HYDROXY Routine 03/17/2025 9:48 AM CDT Vitamin D insufficiency LIPID PANEL Routine 03/17/2025 9:48 AM CDT Hypertension associated with diabetes (HCC) HEMOGLOBIN A1C Routine 03/17/2025 9:48 AM CDT Hypertension associated with diabetes (HCC) COMPREHENSIVE METABOLIC PANEL Routine 03/17/2025 9:48 AM CDT Hypertension associated with diabetes (HCC) CBC WITH AUTO DIFFERENTIAL Routine 03/17/2025 9:48 AM CDT Hypertension associated with diabetes (HCC) POCT GLUCOSE DEVICE Routine 03/09/2025 9 :10 AM CDT COLONOSCOPY 03/09/2025 9:09 AM CDT History of colonic polyps Encounter for screening colonoscopy COLONOSCOPY 03/09/2025 8:29 AM CDT HM DIABETES EYE EXAM Routine 07/15/2024 10:37 AM CDT DEXA AXIAL SKELETON BONE DENSITY 1 OR MORE SITES Schedule Routine, Read Routine (OP Routine) 06/23/2024 8:10 AM CDT Screening for osteoporosis manager intermediate (current) use of inhaled steroids SCREENING MAMMOGRAM RIGHT W COLBY UNILATERAL ONLY Schedule Routine, Read Routine (OP Routine) 06/23/2024 7:53 AM CDT Encounter for screening mammogram for malignant neoplasm of breast HEPATITIS C ANTIBODY Routine 06/12/2024 10:53 AM CDT Encounter for hepatitis C screening test for low risk patient ALBUMIN CREATININE RATIO, URINE Routine 06/12/2024 10:53 AM CDT Hypertension associated with diabetes (HCC) Type 2 diabetes mellitus with hyperlipidemia (HCC) from Last 3 Months or Most Recently Relevant to Health Maintenance Results * eGFR (03/17/2025 9:48 AM CDT) eGFR >90 >=60 mL/min/1. 73 m2 Comment: Interpretive Data Reference Interval Normal >/= 90 mL/min/1.73m2 Mildly decreased* 60 - 89 mL/min/1.73m2 Mildly to moderately decreased 45 - 59 mL/min/1.73m2 Moderately to severely decreased 30 - 44 mL/min/1.73m2 Severely decreased 15 - 29 mL/min/1.73m2 Kidney Failure < 15 mL/min/1.73m2 *Relative to young adult level Estimated glomerular filtration rate is determined by the 2020 CKD-EPI equation recommended by the National Kidney Foundation (A Unifying Approach to GFR Estimation: Recommendations of the NKF-ASK Task Force on Reassessing the Inclusion of Race in Diagnosing Kidney Disease, JASN 2020). The CKD-EPI equation should not be used for patients with unstable renal function and has not been validated in children and those over 70. Current interpretive data was last reviewed 2021. Blood 03/17/2025 9:48 AM CDT 03/17/2025 6:41 PM CDT us Agustín Glasgow MD LAB BLOOD ORDERABLES Final Result CAROL [id number] [address] Department [place] [address] * Differential, auto (03/17/2025 9:48 AM CDT) Neutrophil abs 1.98 1.50 - 6.50 K/cumm Imm gran abs 0.01 0.00 - 0.10 K/cumm [facility] Lymphocyte abs 1.75 0.80 - 3.30 K/cumm [facility] Monocyte abs 0.47 0.20 - 0.80 K/cumm [facility] Eosinophil abs 0.33 0.00 - 0.50 K/cumm [facility] Basophil abs 0.06 0.00 - 0.10 K/cumm [facility] Neutrophil pct 43.1 % [facility] Comment: Interpretive Data Percent cell count reference ranges are not reported, since discordance with absolute values may lead to misinterpretation of CBC data. Current Interpretive Data was last revised on 2018. Imm gran pct 0.2 % [facility] Comment: Interpretive Data Percent cell count reference ranges are not reported, since discordance with absolute values may lead to misinterpretation of CBC data. Current Interpretive Data was last revised on 2018. Lymphocyte pct 38.0 % [facility] Comment: Interpretive Data Percent cell count reference ranges are not reported, since discordance with absolute values may lead to misinterpretation of CBC data. Current Interpretive Data was last revised on 2018. Monocyte pct 10.2 % [facility] Comment: Interpretive Data Percent cell count reference ranges are not reported, since discordance with absolute values may lead to misinterpretation of CBC data. Current Interpretive Data was last revised on 2018. Eosinophil pct 7.2 % [facility] Comment: Interpretive Data Percent cell count reference ranges are not reported, since discordance with absolute values may lead to misinterpretation of CBC data. Current Interpretive Data was last revised on 2018. Basophil pct 1.3 % [facility] Comment: Interpretive Data Percent cell count reference ranges are not reported, since discordance with absolute values may lead to misinterpretation of CBC data. Current Interpretive Data was last revised on 2018. Blood 03/17/2025 9:48 AM CDT 03/17/2025 5:23 PM CDT us Agustín Glasgow MD LAB BLOOD ORDERABLES Final Result [facility] [id number] [address] Department [place] [address] * Thyroid Function [place] (03/17/2025 9:48 AM CDT) TSH 0.79 0.30 - 4.20 mcIUnit/mL Blood 03/17/2025 9:48 AM CDT 03/17/2025 5:23 PM CDT Agustín Glasgow MD LAB BLOOD ORDERABLES Final Result [facility] [id number] [address] [employer] [address] * (ABNORMAL) CBC with auto differential (03/17/2025 9:48 AM CDT) [facility] WBC 4.60 3.80 - 9.90 K/cumm Hgb 13.6 11.9 - 15.5 g/dL [facility] Hct 43.3 35.6 - 45.5 % [facility] Plt 327 150 - 400 K/cumm [facility] MPV 10.1 9.1 - 12.3 fL [facility] RBC 4.56 3.90 - 5.20 M/cumm [facility] MCV 95.0 81.3 - 96.4 fL [facility] MCH 29.8 27.1 - 33.3 pg [facility] MCHC 31.4(L) 32.3 - 35.7 g/dL [facility] RDW CV 14.6 11.1 - 14.9 % [facility] RDW SD 50.6(H) 35.7 - 48.1 fL [facility] NRBC abs 0.00 0.00 - 0.01 K/cumm [facility] Blood 03/17/2025 9:48 AM CDT 03/17/2025 5:23 PM CDT Agustín Glasgow MD LAB BLOOD ORDERABLES Final Result [facility] [id number] [address] [employer] [place], [place] [id number] * Vitamin D 25 hydroxy (03/17/2025 9:48 AM CDT) Pathologist [facility] Vitamin D 25-OH 51 30 - 80 ng/mL Blood 03/17/2025 9:48 AM CDT 03/17/2025 5:23 PM CDT Agustín Glasgow MD LAB BLOOD ORDERABLES Final Result Performing Organization Address [facility] Phone Number CAROL [phone] [address] [facility] [employer] [address] * (ABNORMAL) Hemoglobin A1c (03/17/2025 9:48 AM CDT) Hgb A1C 5.9(H) 4.0 - 5.6 % Estimated Average Glucose 123 mg/dL [facility] Comment: The ADA recommends reporting an estimated Average Glucose (eAG) with all Hemoglobin A1c results using the equation derived from a study of 507 normal and diabetic adults. Minority populations were underrepresented and children were not included. (Diabetes Care 31:2661-7191, 2008). The eAG is not equivalent to a fasting glucose. Blood 03/17/2025 9:48 AM CDT 03/17/2025 5:23 PM CDT Agustín Glasgow MD LAB BLOOD ORDERABLES Final Result Performing Organization Address [facility] Phone Number CAROL [phone] [address] [facility] [employer] [address] * (ABNORMAL) Lipid panel (03/17/2025 9:48 AM CDT) Cholesterol 260(H) 30 - 199 mg/dL Comment: Interpretive Data Ages < or = 19 years Acceptable: <170 mg/dL Borderline high: 170-199 mg/dL High: >or= 200 mg/dL Ages > or = 20 years Desirable: <200 mg/dL Borderline high: 200-239 mg/dL High: >or= 240 mg/dL Literature References: 1. Expert Panel on Integrated Guidelines for Cardiovascular Health and Risk Reduction in Children and Adolescents. Pediatrics 2011;128:S213 2. NCEP Expert Panel. Circulation 2004;110:227 Current Interpretive Data was last revised on 2018. Triglycerides 71 <=149 mg/dL [facility] Comment: Interpretive Data Ages < or = 9 years Acceptable: <75 mg/dL Borderline high: 75-99 mg/dL High: >or= 100 mg/dL Ages 10 to 20 years Acceptable: <90 mg/dL Borderline high: 90-129 mg/dL High: >or= 130 mg/dL Ages > or = 20 years Desirable: <150 mg/dL Borderline high: 150-199 mg/dL High: 200-499 mg/dL Very high: >or= 499 mg/dL Literature References: 1. Expert Panel on Integrated Guidelines for Cardiovascular Health and Risk Reduction in Children and Adolescents. Pediatrics 2011;128:S213 2. NCEP Expert Panel. Circulation 2004;110:227 Current Interpretive Data was last revised on 2018. HDL 99 >=40 mg/dL [facility] Comment: Interpretive Data Ages < or = 19 years Acceptable: >45 mg/dL Borderline low: 40-45 mg/dL Low: <40 mg/dL Ages > or = 20 years Desirable: >or= 60 mg/dL Low: <40 mg/dL Literature References: 1. Expert Panel on Integrated Guidelines for Cardiovascular Health and Risk Reduction in Children and Adolescents. Pediatrics 2011;128:S213 2. NCEP Expert Panel. Circulation 2004;110:227 Current Interpretive Data was last revised on 2018. LDL, calculated 150(H) <=129 mg/dL [facility] Comment: Interpretive Data Ages < or = 19 years Acceptable: <110 mg/dL Borderline high: 110-129 mg/dL High: >or= 130 mg/dL Ages > or = 20 years Optimal: <100 mg/dL Near optimal: 100-129 mg/dL Borderline high: 130-159 mg/dL High: >160 mg/dL Calculated using the Isma LDL-C estimating equation. This equation was implemented on 2024. Prior to this date LDL-C was estimated using the Friedewald equation. Literature References: 1. Expert Panel on Integrated Guidelines for Cardiovascular Health and Risk Reduction in Children and Adolescents. Pediatrics 2011;128:S213 2. NCEP Expert Panel. Circulation 2004;110:227 3. Isma Nielsen al. LULÚ Cardiol. 2019March 12;5(5):540-548. doi: 10.1001/jamacardio.2020.0013 Current Interpretive Data was last revised on 2024. Non-HDL Cholesterol 161 mg/dL [facility] Comment: Interpretive Data Ages < or = 19 years Acceptable: <120 mg/dL Borderline high: 120-144 mg/dL High: >145 mg/dL Ages > or = 20 years When triglycerides are >200 mg/dL, Non-HDL cholesterol is a secondary target of therapy with treatment goals that are 30 mg/dL greater than the LDL cholesterol target. Literature References: 1. Expert Panel on Integrated Guidelines for Cardiovascular Health and Risk Reduction in Children and Adolescents. Pediatrics 2011;128:S213 2. NCEP Expert Panel. Circulation 2004;110:227 Current Interpretive Data was last revised on 2018. Chol/HDL ratio 3 [facility] Blood 03/17/2025 9:48 AM CDT 03/17/2025 5:23 PM CDT Agustín Glasgow MD LAB BLOOD ORDERABLES Final Result Performing Organization Address City/State/ZIP Co ri Phone Number [facility] [id number] Department [place] [address] * Comprehensive metabolic panel (03/17/2025 9:48 AM CDT) Sodium 139 135 - 145 mmol/L Potassium, pl 4.0 3.3 - 4.9 mmol/L [facility] Chloride 104 97 - 110 mmol/L [facility] CO2 23 22 - 32 mmol/L [facility] Anion gap 12 2 - 15 mmol/L [facility] BUN 16 6 - 25 mg/dL [facility] Creatinine 0.63 0.60 - 1.10 mg/dL [facility] Glucose 95 70 - 199 mg/dL [facility] Comment: Interpretive Data Fasting glucose >/= 126 mg/dl is diagnostic for diabetes. Fasting is defined as no caloric intake for at least 8 hours. Fasting glucose between 100 mg/dl to 125 mg/dl is diagnostic of prediabetes. In a patient with classic symptoms of hyperglycemia or hyperglycemic crisis, a random glucose >/= 200 mg/dl is diagnostic for diabetes. In the absence of unequivocal hyperglycemia, results should be confirmed by repeat testing. The classification and Diagnosis of Diabetes Diabetes Care 202; 46: S19-S40. Current interpretive data was last revised 2022. Calcium 10.0 8.5 - 10.3 mg/dL [facility] Bilirubin, total 0.5 0.1 - 1.2 mg/dL [facility] Protein, pl 7.7 6.5 - 8.5 g/dL [facility] Albumin 3.8 3.5 - 5.0 g/dL [facility] Alk phos 67 40 - 130 Units/L [facility] ALT 18 7 - 45 Units/L [facility] AST 26 10 - 45 Units/L [facility] Blood 03/17/2025 9:48 AM CDT 03/17/2025 5:23 PM CDT us Agustín Glasgow MD LAB BLOOD ORDERABLES Final Result [facility] [address] Department [place] [address] * POCT glucose (03/09/2025 9:10 AM CDT) Glucose, POC 99 70 - 199 mg/dL Blood 03/09/2025 9:10 AM CDT 03/09/2025 9:10 AM CDT us Margarito Blair DO LAB POCT ORDERABLES - DEVICE F inal Result [facility] Department [place] [address] * Colonoscopy (03/09/2025 8:29 AM CDT) Anatomical Region Laterality Modality Other Narrative Procedure Note Margarito Blair, - 03/09/2025 8:29 AM CDT [facility] Patient Name: Virginia Calvin Procedure Date: 03/09/2025 8:29 AM Date of : 1955 Admit Type: Outpatient Age: 69 Gender: Female Attending MD: Margarito Blair D.O. Room: [facility] ENDOSCOPY ROOM 2 Note Status: Finalized Patient Profile: Refer to note in patient chart for documentation of history and physical. Procedure: Colonoscopy Indications: High risk colon cancer surveillance: Personalhistory of colonic polyps, Last colonoscopy 3 years ago Referring MD: Agustín Glasgow M.D. Providers: Margarito Blair D.O. Impression: - The examined portion of the ileum was normal. - The entire examined colon is normal. - No specimens collected. Recommendation: - Discharge patient to home. - Resume previous diet. - Continue present medications. - Repeat colonoscopy in 5 years for surveillance. - Return to primary care physician PRN. Medicines: Monitored Anesthesia Care Complications: No immediate complications. Estimated Blood Loss: Estimated blood loss: none. Procedure: Pre-Anesthesia Assessment: - As per anesthesia. The benefits, risks and alternatives of theprocedure and sedation were discussed and informed consentwas obtained. All questions were answered. Please referto the signed informed consent document in the medical record. The bowel preparation used was Miralax via split dose instruction. The bowel preparation usedwas bisacodyl tablets via split dose instruction. The scope was passed under direct vision. The Pediatric Colonoscope [id number] was introducedthrough the anus and advanced to the 5 cm into the ileum.The colonoscopy was performed without difficulty. The patient tolerated the procedure well. The qualityof the bowel preparation was adequate. The terminal ileum, ileocecal valve, appendiceal orifice, and rectum were photographed. Findings: The perianal and digital rectal examinations were normal. The terminal ileum appeared normal. The entire examined colon appeared normal. Electronically signed by Margarito Blair M.D. Margarito Blair D.O. 03/09/2025 9:41:41 AM Number of Addenda: 0 Note Initiated On: 03/09/2025 8:29 AM Procedure Code(s): --- Professional --- G0105, Colorectal cancer screening; colonoscopy on individual at high risk --- Technical --- G0105, Colorectal cancer screening; colonoscopy on individual at high risk Diagnosis Code(s): --- Professional --- Z86.010, Personal history of colonic polyps --- Technical --- Z86.010, Personal history of colonic polyps CPT copyright 2020 [employer]. All rights reserved. The codes documented in this report are preliminary and upon rn recruitment reviewmay be revised to meet current compliance requirements. Recognized by the [employer] for promoting quality in endoscopy Margarito Blair DO ENDOSCOPY PROCEDURES Final Res ult * HM DIABETES EYE EXAM (07/15/2024 10:37 AM CDT) [facility] Provider HEALTH MAINTENANCE Final Result * Dexa Axial Skeleton Bone Density 1 or 2 Site (06/23/2024 8:10 AM CDT) Anatomical Region Laterality Modality Body N/A Other 06/23/2024 12:4 6 PM CDT Impressions 06/23/2024 12:46 PM CDT Normal bone mineral density of lumbar spine at L1-L4, total left hip and left femoral neck. Electronically signed by: Ge Ordaz II, D.O. Narrative 06/23/2024 12:46 PM CDT Examination: Bone densitometry of the lumbar spine and the left hip History: Osteoporosis screening. Comparison: No priors available for comparison. Findings: The bone densitometry of the L1-L4 region, the left femoral neck and the total left hip was calculated using dual-energy x-ray absorptiometry. Menopausal status: Post menopausal Summary: Bone mineral density (BMD) of the lumbar spine (L1-4): T-score 0.0 Bone mineral density (BMD) of the left femoral neck: T-score -0.4 Bone mineral density (BMD) of the total left hip: T-score -0.1 Procedure Note Ge Ordaz II, - 06/23/2024 Examination: Bone densitometry of the lumbar spine and the left hip History: Osteoporosis screening. Comparison: No priors available for comparison. Findings: The bone densitometry of the L1-L4 region, the left femoral neck and the total left hip was calculated using dual-energy x-ray absorptiometry. Menopausal status: Post menopausal Summary: Bone mineral density (BMD) of the lumbar spine (L1-4): T-score 0.0 Bone mineral density (BMD) of the left femoral neck: T-score -0.4 Bone mineral density (BMD) of the total left hip: T-score -0.1 IMPRESSION: Normal bone mineral density of lumbar spine at L1-L4, total left hip and left femoral neck. Electronically signed by: Ge Ordaz II, D.O. Agustín Glasgow MD [facility] DXA PROCEDURES Final Re sult * Screening Mammogram Right W [place] Unilateral Only (06/23/2024 7:53 AM CDT) Anatomical Region Laterality Modality Breast Right Mammography 07/07/2024 12:5 9 PM CDT Impressions 07/07/2024 12:59 PM CDT No evidence of malignancy in right breast. FINAL ASSESSMENT: BI-RADS Category 1: Negative. RECOMMENDATION: Recommend return for annual screening mammogram in 12 months. Electronically signed by: Melanie Menard M.D. Narrative 07/07/2024 12:59 PM CDT EXAMINATION: RIGHT SCREENING MAMMOGRAM COMPARISON: 01/27/2016, 01/25/2015, 01/03/2013 TECHNIQUE: Full-field 2D and digital breast tomosynthesis (DBT) images were obtained. CAD was utilized. BREAST PARENCHYMAL COMPOSITION: The breasts are heterogenously dense, which may obscure small masses. FINDINGS: There is no suspicious mass, calcification, or distortion in right breast . Patient is status post left mastectomy. Agustín Glasgow MD IMG MAMMO PROCEDURES Final Result * Hepatitis C antibody Blood (06/12/2024 10:53 AM CDT) Hep C Ab Nonreactive Nonreactive Comment: Interpretive Data Nonreactive: Antibodies to HCV not detected. Does NOT exclude the possibility of recent exposure to HCV. Equivocal: Equivocal for HCV antibodies. Supplemental molecular testing will be automatically performed to determine infection status in accordance with current CDC screening recommendations. Reactive: Positive for HCV antibodies. This may represent current or past HCV infection. Supplemental molecular testing will be automatically performed to determine current infection status in accordance with current CDC screening recommendations. Interpretive data was last revised on 2020. Blood 06/12/2024 10:5 3 AM CDT 06/12/2024 3:07 PM CDT Agustín Glasgow MD LAB MICROBIOLOGY - GENERAL ORDERABLES Final Result [facility] [address] Department of Laboratories [place], [place] [id number] * Albumin Creatinine Ratio, Urine (06/12/2024 10:53 AM CDT) Albumin Ur <12.0 mg/L Comment: Interpretive Data No reference range established. Current interpretive data was last revised 2019. Creatinine Ur 112.8 mg/dL [facility] Comment: Interpretive Data No reference range established. Current interpretive data was last revised 2019. Albumin Creatinine Ratio, Ur <11 1 - 29 mg/g [facility] Urine 06/12/2024 10:5 3 AM CDT 06/12/2024 3:07 PM CDT us Agustín Glasgow MD LAB URINE ORDERABLES Final Result Performing Organization Address City/State/ZIP Co ri Phone Number [facility] [address] Department [place] [address] from Last 3 Months or Most Recently Relevant to Health Maintenance Insurance [employer] FOR LIFE AETNA MEDICARE FOR LIFE AETNA MEDICARE T MEDICARE FOR LIFE Advance Directives For more information, please contact: [phone] * Full Code (Latest Code Status on File) Date Activated Date Inactivated Comments 03/09/2025 8:29 AM 03/09/2025 2:16 PM * Full Code Date Activated Date Inactivated Comments 03/09/2025 8:29 AM 03/09/2025 8:29 AM * Full Code Date Activated Date Inactivated Comments 10/08/2023 4:38 PM 10/09/2023 6:31 PM Care Teams Rn Outpatient Surgery Relationship Specialty Start Date End Date Agustín Glasgow MD [facility] [address] [place] [address] PCP - General Family Medicine 06/12/24 Mike Boyd MD [address] [place] [address] [address] [place] [address] Surgeon Orthopedic Surgery 10/09/23
--- OUTSIDE RECORDS SUMMARY | 2025-04-11 22:19 | XMS_ITS | Continuity of Care Document ---
Author Organization [facility] Address [address] [facility] [address] [place] [address] Phone Care Team Providers Care Chemistry Lecturer Name Role Phone Bladimir Roper MD Unavailable Unavailable Medications Medication Instructions Dosage Effective Dates (start - stop) Status Comments NAPROXEN (unknown strength) Not Available - Active LOSARTAN POTASSIUM (unknown strength) Not Available - Active ADVAIR DISKUS (unknown strength) Not Available - Active VERAPAMIL HCL (unknown strength) Not Available - Active Procedures Procedure Date OFFICE/OUTPATIENT VISIT EST OFFICE CONSULTATION Advance Directives Directive Yes / No Effective Date File Name No Information Encounters Encounter Description Practice Location Reason(s) For Visit Diagnoses Date Provider Providers Copied on Encounter OFFICE/OUTPATI ENT VISIT EST [facility], [address], [address], tel:[phone] [facility] [place] fu Back/spina l stenosis (chief complaint) Spinal stenosis of lumbar region 6 Jacquelin [address]. [address] [place], [place], [id number] . tel: [phone] OFFICE CONSULTATION [facility], [address] [place] [address], [address], tel:[phone] [facility] [place] Spinal stenosis of lumbar region 6 Zeshe[address]har [address] [place] [address], [id number] . tel: [phone] Referring Provider: Kimberley Rodriguez, [address] [place] [address] [place], [address]. tel:[phone] Family History Family Member Type Diagnosis Age At Onset Sister Problem (finding) Alive and well Payers Payer name Insurance type Covered republican ID Authorisaiah andrew(s) [facility] Choice/Choice Plus E2 OT [id number] [facility] Employees [place] [id number] Social History Type Description Quantity Date Captured Comments Alcohol Use Details Unknown Caffeine Use Details Unknown Tobacco Use Status No Information Smoking Status No Information Sex Female Chief Complaint And Reason For Visit From encounter dated '09/19/2016 10:05'. fu Back/spinal stenosis (chief complaint) Reason For Referral Reason For Referral No Information Plan Of Treatment Date Type Action Status Referral Ordered: RADEX SPI LUMBOSAC 2/3 VIEWS ordered Referral Ordered: RADEX PELVIS 1/2 VIEWS ordered History Of Present Illness Encounter Date Complaint History Of Prese nt Illness fu Back/spinal stenosis Functional Status Date Functional Assessmen t No Information Instructions Date Instruction Additional Infor mation Activity as tolerated. Related t o Spinal stenosis of lumbar region Take medication as directed. Rel ated to Spinal stenosis of lumbar region Apply ice and/or heat as tolerat ed Related to Spinal stenosis of lumbar region Activity as tolerated. Related t o Spinal stenosis of lumbar region Take medication as directed. Rel ated to Spinal stenosis of lumbar region Apply ice and/or heat as tolerat ed Related to Spinal stenosis of lumbar region Assessments Type Assessment Date assessment Spinal stenosis of lumbar region Patient Care Teams Name Effective Dates (start - stop) Status Members No Information
--- OUTSIDE RECORDS SUMMARY | 2025-04-11 22:19 | XMS_ITS ---
Author Organization [facility] Address [address] [place] [address] Care Team Providers Care Automatic Door Mechanic Name Role Phone Mike Boyd MD Unavailable [phone] Agustín Glasgow MD Primary Care Provider Active Problems Problem Noted Date Diagnosed Date Statin myopathy 10/14/2024 06/19/2024 History of colonic polyps 09/17/2024 Encounter for screening colonoscopy 09/17/2024 Encounter for Medicare annual wellness exam 03/2024 Assessment & Plan (09/16/2024 8:58 AM LOGISTICS RESEARCH ENGINEER): A(n) yearly Medicare Annual Wellness Visit has been performed today. Virginia Dennis is not up to date on screening [...] establish care has been performed today. 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 Past Treatment and Therapy Plans No past plan information found. Lifetime Dose Tracking * Chemical Lifetime Dose Automatic Entry Manual Entr y Fluoro Time 0.242 minutes 0.242 minutes 0 minutes Air kerma at the reference point (Ka,r) 1.55 mGy 1 .55 mGy 0 mGy Resolved Problems Problem Noted Date Diagnosed Date Resolved Date Primary osteoarthritis of left hip 09/26/2022 12/03/2023
--- OUTSIDE RECORDS SUMMARY | 2025-04-11 22:19 | XMS_ITS | Encounter Summary ---
Author Organization [facility] Healthcare Address [address] [place] [address] Care Team Providers Care Cold Storage Superintendent Name Role Phone Mike Boyd MD Unavailable [phone] Agustín Glasgow MD Primary Care Provider [phone] Encounter Details Date Type Department Care Team (Late st Contact Info) Description 03/18/2025 Results Follow-Up [facility] Primary Care at [address] [address] Agustín Glasgow MD [address] [place] [address] [address] [place] [address] CBC with auto differential, Comprehensive metabolic panel, Hemoglobin A1c, Additional followed-up results: 5 Social History Tobacco Use Types Packs/Day Years Used Date Smoking Tobacco: Never Cigarettes 0.3 1 Smokeless Tobacco: Never Alcohol Use Standard Drinks/Week Comments Yes 0 [...] on file Legal Sex Female 12:20 AM 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 Gender Identity Female 10/18/2021 6:33 AM GREENHOUSE FLORIST Sexual Orientation Straight 10/18/2021 6: 33 AM GREENHOUSE FLORIST documented as of this encounter Ordered Prescriptions Prescription Sig Dispense Quantity Refills Last Filled Start Date End Date ezetimibe (Zetia) 10 mg tablet Take 1 tablet (10 mg total) by mouth daily 30 tablet 3 03/18/2025 documented in this encounter Plan of Treatment Not on file documented as of this encounter Visit Diagnoses Not on filedocumented in this encounter Care Teams Cold Storage Superintendent Relationship Specialty Start Date End Date Agustín Glasgow MD [address] [place] [address] PCP - General Family Medicine 06/12/24 Mike Boyd MD [address] [place] [address] [address] [place] [address] Surgeon Orthopedic Surgery 10/09/23 documented as of this encounter
--- OUTSIDE RECORDS SUMMARY | 2025-04-11 22:19 | XMS_ITS | CONTINUITY OF CARE DOCUMENT ---
Author Name chapito uriarte Address Unknown Organization [facility] Address [address] [facility] [address] [place] [address] Phone [phone] Care Team Providers Care Hiv Counselor Name Role Phone Nadir QUINTANILLA, Rosalva Unavailable KATHIA QUINTANILLA, RUNDA Unavailable [phone] KATHIA QUINTANILLA, RUNDA Unavailable [phone] PROBLEMS Condition Status Date Provider Notes CHEST PAIN - ATYPICAL-02/19 R T STRESS NL active Rosalva Schmitz MD HTN-05/20 ECHO EF 69 active ? CREST SYNDROME completed - Rosalva Schmitz MD HTN - 02/19 GEMMA US NEG completed - Rosalva Schmitz MD Hyperlipidemia intolerant of statins active Rosalva Schmitz MD Cardiomegaly on CT , nl lv s ize and function on echo 11/28 active Rosalva Schmitz MD ENCOUNTERS Date Type Provider Location Encounter Diag nosis - In-person encounter Office Visit [facility] - In-person encounter Office Visit Rosalva Schmitz MD [place] [facility] Cardiomegaly on CT , nl lv size and function on echo 11/28 - In-person encounter Office Visit [facility] CHEST PAIN - ATYPICA L-02/19 RT STRESS NLCREST SYNDROMEHTN - 02/19 GEMMA US NEGHyperlipidemia intolerant of statinsCardiomegaly on CT , nl lv size and function on echo 11/28 - In-person encounter Office Visit Brayan Lee MD [place] [facility] - In-person encounter Office Visit Brayan Lee MD [place] [facility] CHEST PAIN - ATYPICAL-02/19 RT STRESS NLHTN-05/20 ECHO EF 69 VITAL SIGNS Date Observation Value Provider Body Mass Index (Ratio) 27.41 kg/m2 Zaki Schmitz MD blood pressure, diastolic 62 mm[Hg] Al dl Malone blood pressure, systolic 108 mm[Hg] [facility] oxygen saturation, oximetry 97 % [facility] respiratory rate E&M 15 /min [facility] pulse rate 56 /min [facility] weight E&M 175 [lb_av] [facility] height E&M 67 [in_i] [facility] Body Mass Index (Ratio) 28.82 kg/m2 Zaki Schmitz MD blood pressure, diastolic 66 mm[Hg] Al dl Kira blood pressure, systolic 124 mm[Hg] [facility] oxygen saturation, oximetry 98 % [facility] respiratory rate E&M 15 /min [facility] pulse rate 64 /min [facility] weight E&M 184 [lb_av] [facility] height E&M 67 [in_i] [facility] Body Mass Index (Ratio) 29.07 kg/m2 Kehinde Garcia blood pressure, cuff size regular Te anjum Tom blood pressure, diastolic 72 mm[Hg] Te anjum Tom blood pressure, systolic 122 mm[Hg] Drew Tom blood pressure, resting Yes Martín Tom oxygen saturation, oximetry 96 % Sandy Tom respiratory rate E&M 18 /min Sandy Tom pulse rate 73 /min Sandy Robinhley height E&M 67 [in_i] Sandy Robinhley weight E&M 185.6 [lb_av] Sandy milton blood pressure, diastolic, right arm 83 m m[Hg] Suresh Manacop blood pressure, systolic, right arm 133 m m[Hg] Suresh [place] blood pressure, diastolic 83 mm[Hg] Kathy seph [place] blood pressure, systolic 133 mm[Hg] Zia eph [facility] pulse rate 69 /min [facility], [facility] 96 [facility] E&M 16 /min Suresh Manacop weight E&M 182 [lb_av] [place]uresh [place] blood pressure, diastolic 97 mm[Hg] Da tierra Valentin blood pressure, systolic 185 mm[Hg] Avel Valentin pulse rate 71 /min Cordelia Valentin oxygen saturation, oximetry 99 % Cordelia Valentin respiratory rate E&M 16 /min Johnathan Valentin weight E&M 177 [lb_av] Cordelia Valentin blood pressure, diastolic 88 mm[Hg] Ca zane Rios blood pressure, systolic 130 mm[Hg] Car ol [place]anca ALLERGIES Allergy Name Onset Date Reaction Criticality Status CODEINE High Criticality active PENICILLIN rash rash High Criticality active SULFA High Criticality active RESULTS Date Observation Value Provider Reference Range Interpretation Location 1 thyroid stimulating hormone, serum 0.769 ??IU/ML [facility] 0.270 - 4.200 1 very low density lipoproteins 19.4 mg/dL [facility] 5.0 - 40.0 1 LDL/HDL (low-density lipoprotein/high-den sity lipoprotein) ratio 1.4 RATIO [facility] - 1 lipoprotein, beta, serum, point, quantitative, calculated 122.6 (?) [facility] 0.0 - 100.0 High 1 HDL cholesterol, serum 88.0 mg/dL [facility] 45.0 - 65.0 High 1 cholesterol, serum 230.0 mg/dL [facility] 0.0 - 200.0 High 1 triglyceride, serum, fasting 97.0 mg/dL [facility] 0.0 - 150.0 1 anion gap, serum 15.9 [facility] - 1 albumin/globulin ratio, serum 1.4 g/dL [facility] 1.1 - 2.5 1 globulin, serum 3.2 [facility] 2.3 - 3.8 1 urea nitrogen/creatinine ratio, serum 15.7 [facility] - 1 Estimated Glomerular Filtration Rate (calc) 90.4 (?) [facility] 59.0 - 1 chloride, serum 99.1 mmol/L [facility] 98.0 - 107.0 1 potassium, serum 3.5 mmol/L [facility] 3.5 - 5.1 1 sodium, serum 141.0 mmol/L [facility] 136.0 - 145.0 1 creatinine, serum 0.7 mg/dL [facility] 0.5 - 1.0 1 carbon dioxide, venous blood 26.0 mmol/L [facility] 23.0 - 31.0 1 albumin, serum 4.5 g/dL [facility] 3.5 - 5.2 1 calcium, serum 9.9 mg/dL [facility] 8.6 - 10.2 1 aspartate aminotransferase (SGOT), serum 23.0 1/L [facility] 0.0 - 32.0 1 alkaline phosphatase, serum 69.0 1/L [facility] 40.0 - 130.0 1 alanine aminotransferase (SGPT), serum 25.0 1/L [facility] 0.0 - 33.0 1 protein, total, serum 7.7 g/dL [facility] 6.6 - 8.7 1 bilirubin, serum, total 0.4 mg/dL [facility] 0.0 - 1.2 1 urea nitrogen, blood 11.0 mg/dL [facility] 8.0 - 23.0 1 blood glucose, random 107.0 mg/dL [facility] 74.0 - 99.0 High 1 red blood cell distribution width, size density 48.1 fL [facility] - 1 immature granulocytes, percentage of total cells, blood 0.2 % [facility] - 1 nucleated red blood cells as percent of blood leukocytes 0.0 % [facility] - 1 red blood cell (erythrocyte) count, per high power field 0.0 10*3/UL [facility] - 1 eosinophils as percent of blood leukocytes 3.7 % [facility] - 1 neutrophils as percent of blood leukocytes 55.8 % [facility] - 1 Absolute Neutrophils 3.3 CELLS/UL [facility] 1.5 - 7.8 1 basophils as percent of blood leukocytes 1.2 % [facility] - 1 Absolute Basophils 0.1 CELLS/UL [facility] 0.0 - 0.2 1 monocytes as percent of blood leukocytes 8.3 % [facility] - 1 Absolute Monocytes 0.5 CELLS/UL [facility] 0.2 - 1.0 1 lymphocytes as percent of blood leukocytes 30.8 % [facility] - 1 Absolute Lymphocytes 1.8 CELLS/UL [facility] 0.9 - 3.9 1 mean platelet volume 10.3 (?) [facility] - 1 platelet count 343.0 THOUSAND/ UL [facility] 100.0 - 400.0 1 mean corpuscular hemoglobin concentration, RBC 32.0 G/DL [facility] 31.0 - 38.0 1 mean corpuscular hemoglobin, RBC 29.3 pg [facility] 25.0 - 35.0 1 mean corpuscular volume, RBC 91.4 fL [facility] 75.0 - 100.0 1 hematocrit, blood 43.4 % [facility] 35.0 - 55.0 1 hemoglobin, blood 13.9 g/dL [facility] 11.5 - 16.5 1 erythrocyte count, whole blood 4.8 MILLION/U L [facility] 3.5 - 5.5 1 hemoglobin A1C, blood, as % of total hemoglobin 6.9 % [facility] 4.0 - 5.6 High HISTORY OF MEDICATION USE Medication Status Instructions Dates Provider Indications Com ments METFORMIN HCL 500 MG ORAL TABLET active po bid 0 Rosalva Schmitz MD ZETIA 10 MG ORAL TABLET active ONE TAB. DAILY 0 Rosalva Schmitz MD CALAN 120 MG ORAL TABLET active One tab in the morning two tabs at night 0 Sandy Tom LOSARTAN POTASSIUM-HCTZ 100-25 MG ORAL TABLET active Once dily 0 Sandy Tom AMBIEN 10 MG ORAL TABLET active as needed 0 Sandy Tom ALPRAZOLAM 0.5 MG ORAL TABLET active as needed 0 Sandy Tom PROAIR HFA 108 (90 Base) MCG/ACT INHALATION AEROSOL SOLUTION active 2 puffs every 4-6 hours as needed 0 Sandy Tom SINGULAIR 10 MG ORAL TABLET active 1 tablet by mouth at bedtime Suresh Bermudez ACETAMINOPHEN TABLET completed 1 tablet by mouth as needed - 0 Sandy Tom ULTRAM 50 MG ORAL TABLET completed po twice daily 8 - 7 Verito Izaguirre RN ASPIRIN 81 MG ORAL TABLET completed ONE TAB. DAILY - 3 Suresh Manacovernell VENTOLIN HFA AEROSOL SOLUTION completed as needed 8 - 3 Suresh Manacovernell IBUPROFEN 800 MG ORAL TABLET completed take as needed 8 - 3 Suresh Alcantaracovernell ADVAIR DISKUS 250-50 MCG/DOSE INHALATION AEROSOL POWDER BREATH ACTIVATED active use as directed Cordelia Valentin VERAPAMIL HCL CR CR-TABS (VERAPAMIL HCL CR-TABS)120MG completed po twice daily 8 - 0 Rosalva Schmitz MD MICARDIS HCT 80-25 MG ORAL TABLET completed ONE TAB. DAILY - 0 Sandy Tom SOCIAL HISTORY Date Observation Value Provider social history reviewed E&M revi ewed - no changes required Rosalva Schmitz MD physical exercise, f requency, days per week yes [facility] alcohol use, average drinks per day none [facility] caffeine use, averag e drinks per day yes [facility] drug use none [facility] smoking, year quit 1976 Betsy Miryam madrid cigarette use yes [facility] smoking status [facility] social history reviewed E&M revi ewed - no changes required Rosalva Schmitz MD number of grandchildren Rosalva Schmitz MD T stephanie Tom smoking, year quit 1976 Sandy walls cigarette use yes Sandy milton smoking status Former smoker Sandy hernandez social history reviewed E&M reviewed Brayan Lee MD social history E&M Marital Statu s: J ob Status: Employed full-time E thnicity: Brayan Lee MD physical exercise, f requency, days per week yes Brayan Lee MD drug use none Brayan Lee MD social history reviewed E&M reviewed Brayan Lee MD caffeine use, averag e drinks per day yes [facility] alcohol use, average drinks per day none [facility] smoking status Non-smoker [facility] smoking status never Rebecca gamble FUNCTIONAL STATUS Date Observation Value Provider periodic limb movement index absent (0) Rebecca Rios MENTAL STATUS Date Observation Value Provider assessment of judgme nt and insight E&M Alert and oriented to time, place and person. Mood and affect are normal. Brayan Lee MD assessment of judgme nt and insight E&M Alert and oriented to time, place and person. Mood and affect are normal. Brayan Lee MD FAMILY HISTORY Family Member Condition Mother Family History Unkno wn INSURANCE PROVIDERS Payer name Policy type / Coverage type [place] red libertarian ID [facility] Other [id number] [facility] [id number] Other [id number] [facility] Other [id number] ADVANCE DIRECTIVES Name Date DISCUSSED - NO DECISION MADE TREATMENT PLAN Date Name Performer Cardiology Rosalva Schmitz MD Cardiology Rosalva Schmitz MD Cardiology Rosalva Schmitz MD Cardiology Rosalva Schmitz MD Cardiology Rosalva Schmitz MD Cardiology Rosalva Schmitz MD Cardiology Rosalva Schmitz MD Cardiology Rosalva Schmitz MD Cardiology Rosalva Schmitz MD 1 month follow-up : T he following medications were removed from the medication list: Aspirin 81 Mg Tabs (Aspirin) ..... One tab. daily BP today: 133/83 Prior BP: 185/97 (03/09/2010) EK ) First Degree AV Block 2) Poor R Wave Progression 3) V1-V4 Cannot Rule out Septral infarct age undetermined . ........................................................ ..........BROWN BAGLEY MD March 04, 2010 4:27 PM 1 FIRST DEGREE AV BLOCK 2 POOR R WAVE PROGRESSION (03/04/2010) E chocardiogram: EF 69%. Normal LV and RV size and systolic function. Normal atrial dimensions. Nannal appearing IVC. Normal caliber aortic root and arch. No AR seen, No MR seen, no , no MS, trace TR, normal PV. Diastolic function: Impaired Relaxation. TR jet inadequate to estimate RVSP, however mean PA pressure is in normal range by pulmonary acceleration time method. BJ (06/01/2009) Brayan Lee MD 1 month follow-up : T he following medications were removed from the medication list: Aspirin 81 Mg Tabs (Aspirin) ..... One tab. daily Her updated medication list for this problem includes: Micardis Hct 80-25 Mg Tabs (Telmisartan-hctz) ..... One tab. daily BP today: 133/83 P rior BP: 185/97 (03/09/2010) Prior 10 Yr Risk Heart Disease: Not enough information (03/04/2010) Brayan Lee MD new patien: O rders: R enal Artery Duplex (CPT-84950) C OMPREHENSIVE METABOLIC PANEL W/EGFR (15670) L IPID PANEL (7600) H EMOGLOBIN A1c (496) Brayan Lee MD new patien: H er updated medication list for this problem includes: Micardis Hct 80-25 Mg Tabs (Telmisartan-hctz) ..... One tab. daily Aspirin 81 Mg Tabs (Aspirin) ..... One tab. daily O rders: R enal Artery Duplex (CPT-89744) C OMPREHENSIVE METABOLIC PANEL W/EGFR (07912) L IPID PANEL (7600) H EMOGLOBIN A1c (496) BP today: 185/97 P rior BP: 130/88 (03/04/2010) Prior 10 Yr Risk Heart Disease: Not enough information (03/04/2010) Brayan Lee MD Date Name TSH, 3RD GENERATION W/REFLEX TO FT4 VITAMIN D, 25-HYDROX Y, LC/MS/MS HEMOGLOBIN A1c LIPID PANEL CBC (INCLUDES DIFF/P LT) COMPREHENSIVE METABO LIC PANEL W/EGFR HEMOGLOBIN A1c LIPID PANEL COMPREHENSIVE METABO LIC PANEL W/EGFR Renal Artery Duplex HISTORY OF PROCEDURES Procedure Date Procedure Name Provider Procedure Notes S tatus SNOMED-CT: 867171607 957443 Current Medications Documented Rosalva Schmitz MD completed SNOMED-CT: 89699855 Physical Exam, Performed: Pulse Exam of Foot Rosalva Schmitz MD completed SNOMED-CT: 167840907 130574 Current Medications Documented Rosalva Schmitz MD completed EKG Rosalva Schmitz MD completed
--- OUTSIDE RECORDS SUMMARY | 2025-04-11 22:19 | XMS_ITS | Clinical Summary ---
Author Organization [facility] Address [address] [place] [address] Care Team Providers Care Swing Saw Operator Name Role Phone Kimberley Rodriguez MD Primary Care Provider [phone] Allergies Active Allergy Reactions Criticality Noted Date Comments Hydrocodone-Acetaminophen Shortness of Breath/Wheezing High 11/30/2009 Latex Unknown 11/30/2009 Penicillins Unknown 11/30/2009 Medications FLUTICASONE/SALM ETEROL (ADVAIR DISKUS IN) Take by inhalation. Active Telmisartan-Hydr ochlorothiazid (MICARDIS HCT) 80-25 mg Tablet Take by mouth. Active verapamil (CALAN) 120 mg tablet Take 120 mg by mouth 2 times daily. Active albuterol sulfate 90 mcg/actuation metered powder inhaler Take by inhalation. Active Active Problems Problem Noted Date Diagnosed Date DCIS (ductal carcinoma in situ) of breast 2015 HTN (hypertension) Asthma Obesity Unspecified deficiency anemia Anxiety Malignant neoplasm of female breast Overview (11/30/2009): DCIS, left breast, er positive, pr negative Family History Medical History Relation Name Comments Breast Cancer Mother 48 Ovarian Cancer Neg Hx Relation Name Status Comments Mother Social History Tobacco Use Types Packs/Day Years Used Date Smoking Tobacco: Former Comments:1975 Alcohol Use Standard Drinks/Week Comments Yes 0 (1 standard drink = 0.6 oz pur e alcohol) rarely Comments No Sex and Gender Information Value Date Recorded Sex Assigned at Not on file Legal Sex Female 5:34 AM [employer] Gender Identity Not on file Sexual Orientation Not on file Occupation Industry Job Start Date Job End Date Not on file Not on file Not on file Not on file Last Filed Vital Signs Vital Sign Reading Time Taken Comments Blood Pressure 130/78 11/30/2015 9:20 AM [employer] Pulse 64 11/30/2015 9:20 AM [employer] Temperature 36.7 C (98.1 F) 11/30/2015 9:20 AM [employer] Respiratory Rate 16 11/30/2015 9:20 AM [employer] Oxygen Saturation - - Inhaled Oxygen Concentration - - Weight 82.5 kg (181 lb 12.8 oz) 11/30/2015 9:20 AM [employer] Height 171.5 cm (5' 7.5) 11/30/2015 9:20 AM [employer] Body Mass Index 28.05 11/30/2015 9:20 AM [employer] Plan of Treatment Health Maintenance Due Date Last Done Comments DTAP/TDAP/TD VACCINES (1 - Tdap) 1974 PNEUMOCOCCAL VACCINE 50+ YEA RS (1 of 2 - PCV) 1974 COLORECTAL SCREENING 2000 Colorectal Cancer Screening 2000 FIT-DNA Q 3 years 2000 FIT/FOBT Q 1 year 2000 Flex Sig/CT Colonography Q 5 years 2000 ZOSTER VACCINE (1 of 2) 2005 RSV VACCINE (60+ or ) (1 - Risk 60-74 years 1-dose series) 2015 BREAST CANCER SCREENING 01/26/2017 01/27/20 16, 01/25/2015, 01/03/2013, Additional history exists OSTEOPOROSIS SCREENING 2020 INFLUENZA VACCINE (#1) 2024 Procedures Procedure Name Priority Date/Time Associated Diagnosis Comments MAMMO DIAG UNI RIGHT 3D MARY W OR WO CAD Routine 01/27/2016 10:07 AM CDT DCIS (ductal carcinoma in situ) of breast, left from Last 3 Months or Most Recently Relevant to Health Maintenance Results * MAMMO DIG DIAG UNI RT W 3D MARY (01/27/2016 10:07 AM CDT) Anatomical Region Laterality Modality Breast Right Mammography 01/27/2016 10:0 7 AM CDT Impressions 01/27/2016 12:00 PM CDT IMPRESSION: Status post left mastectomy Stable appearance of the right breast. Recommend routine followup. OVERALL ASSESSMENT: BI-RADS category 1 - Negative Narrative 01/27/2016 12:00 PM CDT RIGHT DIAGNOSTIC DIGITAL MAMMOGRAMS WITH COMPUTER ASSISTED DIAGNOSIS WITH 3D TOMOSYNTHESIS HISTORY: Status post left mastectomy A standard three view diagnostic examination was performed. Comparison is made with 01/25/2015 and 10/23/2008. The breast parenchyma is heterogeneously dense. No new dominant mass, suspicious calcifications or areas of parenchymal distortion are identified. Low Dose full field Digital Breast tomosynthesis examination was performed with 2D and 3D acquisitions. Examination is read in conjunction with computer aided detection. Procedure Note Munira Mathur MD - 01/27/2016 RIGHT DIAGNOSTIC DIGITAL MAMMOGRAMS WITH COMPUTER ASSISTED DIAGNOSIS WITH 3D TOMOSYNTHESIS HISTORY: Status post left mastectomy A standard three view diagnostic examination was performed. Comparison is made with 01/25/2015 and 10/23/2008. The breast parenchyma is heterogeneously dense. No new dominant mass, suspicious calcifications or areas of parenchymal distortion are identified. Low Dose full field Digital Breast tomosynthesis examination was performed with 2D and 3D acquisitions. Examination is read in conjunction with computer aided detection. IMPRESSION IMPRESSION: Status post left mastectomy Stable appearance of the right breast. Recommend routine followup. OVERALL ASSESSMENT: BI-RADS category 1 - Negative Kailey Vieyra DO MAMMO ORDERABLES Final Resu lt from Last 3 Months or Most Recently Relevant to Health Maintenance Insurance * Guarantor: Virginia Calvin Account Type Relation to Patient Date of Phone Billing Address Personal/Family Self 1955 [phone] (Work) [address] [place] [address] [facility] [id number] [employer] OPEN ACCESS Member Subscriber Plan / Payer (Ef fective 2022-Present) Name:Virginia Calvin Relation to Subscriber:Spouse Name:THIEN CALVIN Date of :1944 (Home) [phone] (Work) Address: [address] [place], [place] [id number] Payer ID:Not on file Type:O Address: [facility] [id number] [place] [address] Care Teams Swing Saw Operator Relationship Specialty Start Date End Date Kimberley Rodriguez MD PCP - General 10/14/09
[2025-04-11 22:20] VITALS: BP 180/89; PULSE 74; RESP 18; TEMP 36.7; O2SAT 98
--- OUTSIDE RECORDS SUMMARY | 2025-04-11 22:20 | XMS_ITS | Data Portability ---
Author Organization [facility] [employer], Main Office Address [address] [place] [address] Assessment No assessment recorded. Plan of Treatment Reminders Order Date Submit Date Provider Last Modified By Organization Details Last Modified Time Details Appointments None recorded. Lab hemoglobin A1C, fingerstick 2023 024 [facility] [address] , [address], [place], [address], 4 13:01:04 CMP, serum or plasma 2022 023 [email or web address] [facility], [address] [facility] [address], [place], [address], 3 09:24:[address] referral 2022 023 [email or web address] Ольга Joy MD (Dermatology) , [address], [address], [place], [address], 4 10:57:00 Procedures None recorded. Surgeries None recorded. Imaging None recorded. Medication Orders triamcinolo ne acetonide 0.1 % topical ointment 2022 023 [id number], [address] [facility], [place], [place], [id number], 3 12:28:49 Mounjaro 7.5 mg/0.5 mL subcutaneou s pen injector 2022 023 [facility] #[id number], [address], [place], [id number], 3 12:26:41 fluconazole 150 mg tablet 2022 023 [facility], [address] [place] [address], [address], 3 15:35:23 ProAir HFA 90 mcg/actuati on aerosol inhaler 2022 023 [facility], [address] [place] [address], [address], 3 15:34:33 albuterol sulfate 2.5 mg/3 mL (0.083 %) solution for nebulizatio n 2022 023 [facility], [address] [place] [address], [address], 3 15:34:31 Zithromax Z-Mark 250 mg tablet [email or web address] [place] [address], [address] [place] [address], [address], 3 11:49:36 Kenalog 40 mg/mL suspension for injection 2022 023 [email or web address] Not available 16:12:43 Tubersol 5 tub. unit/0.1 mL intradermal injection solution 2022 023 [email or web address] Not available 3 11:44:16 Mounjaro 2.5 mg/0.5 mL subcutaneou s pen injector 2022 023 [email or web address] 3 [facility], [address] [place], [place], [id number], 3 10:12:40 Patient TargetsNo targets recorded. Patient Instructions Encounter Date Encounter Id Patient Instructions Last Modified By Organization Details Last Modified Time 12/05/2023 [id number] she will check B P at home . . 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 [email or web address] [facility] [place] [facility] [address], [place], [address], 10/02/2023 10:34:53 10/25/20 23 10/25/2023 XR, neck No observ ation record ed. [address], [address], 11/21/2023 12:54:16 10/25/20 23 10/25/2023 XR, shoul tu No observ ation record ed. [address], [address], 11/21/2023 12:54:16 01/03/20 24 01/03/2024 XR, chest , 2 view No observ ation record ed. [email or web address] [place] [address], [address], 01/03/2024 15:41:06 01/03/20 24 01/03/2024 CT, angio gram, chest + abdom en + pelvi s, w/ contr ast No observ ation record ed. [email or web address] [facility] [address], [place], [address], 01/04/2024 09:54:57 Result Notes None recorded. Problems Name Problem SNOMED Code Status Onset Date Resolution Date Notes Provider Name and Address Organization Details Recorded Time Inguinal pain 703015879 Active Not Available [facility] 3 08:08:35 Benign hypertension 83341631 Active Not Available [facility] 3 08:08:35 Acute sinusitis 69631534 Active Not Available [facility] 3 08:08:35 Insomnia 983020996 Active Not Available [facility] 3 08:08:35 Asthma 073024546 Active Not Available [facility] 3 08:08:35 Malignant tumor of breast 952285246 Active left breast Not Available [facility] 3 08:08:35 Anemia 984645958 Active Not Available [facility] 3 08:08:36 Eruption 922764381 Active Not Available [facility] 3 08:08:36 Low back pain 787801160 Active Not Available [facility] 3 08:08:36 Pain in right knee Active Not Available [facility] 3 08:08:36 Bronchitis 44182049 Active Not Available [facility] 3 08:08:36 Closed fracture of lateral malleolus 05809653 Active Not Available [facility] 3 08:08:36 Sinusitis 65011262 Active Not Available [facility] 3 08:08:36 Hypertensive disorder 44426224 Active Not Available [facility] 3 08:08:36 Impaired fasting glycemia 258967770 Active Not Available [facility] 3 08:08:36 Type 2 diabetes mellitus 35271816 Active 2020 Not Available [facility] 3 08:08:36 Anxiety 42736709 Active Not Available [facility] 3 08:08:36 Pain of hip region 58111473 Active Not Available [facility] 3 08:08:36 Upper respiratory infection 14520104 Active Not Available [facility] 3 08:08:37 Inflammation of sacroiliac joint 33148704 Active Not Available [facility] 3 08:08:37 Hyperlipidem ia 69730991 Active Not Available [facility] 3 08:08:37 Essential hypertension 84449558 Active Not Available [facility] 3 08:08:37 Allergic rhinitis 26167094 Active Not Available [facility] 3 08:08:37 Otitis media 43940516 Active Not Available [facility] 3 08:08:37 Pelvic mass 45492129 Active Not Available [facility] 3 08:08:37 Type 2 diabetes mellitus without complication 645691927 Active 2022 Kimberley Rodriguez MD [address], [address], [place], [address] , [facility] 3 15:18:23 Chronic obstructive pulmonary disease 79155141 Active 2022 Kimberley Rodriguez MD [address], [address], [place], [address] , [facility] 3 10:23:42 Chronic low back pain 940821958 Active 2022 Kimberley Rodriguez MD [address], [address], [place], [address] , [facility] 3 10:25:13 Obesity 279973491 Active 2022 Kimberley Rodriguez MD [address], [address], [place], [address] , [facility] 3 11:55:30 Seasonal allergic rhinitis 266568573 Active 2022 Kimberley Rodriguez MD [address], [address], [place], [address] , [facility] 3 15:29:52 Vaginitis 32431876 Active 2022 Kimberley Rodriguez MD [address], [address], [place], [address] , [facility] [employer] [facility] 3 15:34:45 Liver enzymes level above reference range 836056579 Active 2022 Kimberley Rodriguez MD [address], [facility] [address], [place], [address] , [facility] [employer] [facility] 3 12:24:35 Cyst of pancreas 36821970 Active 2023 Rosina Stephen RN [facility], [facility] [employer] [facility] 4 09:49:52 Problem Notes None recorded. Procedures Surgical History Date Name Laterality Status Provider Name and Address Organization Details Recorded Time repair of tendo achilles completed Not Available [facility] 01/10/2023 08:06:03 partial mastectomy completed Not Available [facility] 01/10/2023 08:06:03 completed Not Available [facility] 0 01/10/2023 08:06:03 Imaging Results None recorded. Procedure Notes None recorded. Medical Equipment None Reported. Allergies Allergen ID Allergen Name Allergen Category Reaction Reaction Severity Criticality Documentation Date Start Date Code Code System Note Provider Name and Address Organization Details Recorded Time 61578 tramadol medicatio n itching Not available Not available 01/10/2023 90254 RxNorm Not Available [facility] 3 08:12:38 92383 Product containin g penicilli n (product) medicatio n Not available Not available Not available 01/10/2023 22232 8001 SNOMED Not Available [facility] 3 08:12:38 Medications Name Sig Start Date Stop Date Status Note LastModified by Organization Details LastModified Time verapamil ER (SR) 120 mg tablet,ex tended release Take 1 tablet 3 times a day by oral route. active Not Available Not Available No t Available celecoxib 200 mg capsule active Not Available Not Available Not Available cyclobenz aprine 10 mg tablet TAKE 1 TABLET BY MOUTH TWICE DAILY NEEDED FOR MUSCLE SPASM active Not Available Not Available No t Available metformin 500 mg tablet Take 1 tablet twice a day by oral route. active Not Available Not Available No t Available venlafaxi ne ER 75 mg capsule,e xtended release 24 hr active Not Available Not Available Not Available doxycycli ne hyclate 100 mg capsule 05/09 completed Not Available Not Available Not Available albuterol sulfate 2.5 mg/3 mL (0.083 %) solution for nebulizat ion Inhale 3 mL 4 times a day by nebuliza tion route as needed. active Not Available Not Available No t Available azithromy rocael 250 mg tablet TAKE 2 TABLETS BY MOUTH FOR 1 DAY THEN TAKE 1 TABLET BY MOUTH DAILY FOR 4 DAYS active Not Available Not Available No t Available fluconazo le 150 mg tablet Take 1 tablet every day by oral route for 1 day. active Not Available Not Available No t Available benzonata te 200 mg capsule active Not Available Not Available Not Available valacyclo vir 1 gram tablet Take 1 tablet every day active Not Available Not Available No t Available hydrocodo ne 5 mg-acetam inophen 325 mg tablet TAKE 1 TABLET BY MOUTH EVERY 4-6 HOURS NEEDED active Not Available Not Available No t Available meloxicam 15 mg tablet active Not Available Not Available Not Available Medrol (Mark) 4 mg tablets in a dose pack Take by oral route as directed 10/02 completed Not Available Not Available Not Available prednison e 20 mg tablet TAKE 2 TABLETS BY MOUTH EVERY DAY 05/09 completed Not Available Not Available Not Available Tubersol 5 tub. unit/0.1 mL intraderm al injection solution Inject 0.1 mL every day by intrader mal route for 1 day. 05/09 completed Not Available Not Available Not Available clindamyc in HCl 150 mg capsule active Not Available Not Available Not Available hydroxyzi ne HCl 50 mg tablet TAKE 1 TABLET BY MOUTH TWICE DAILY 08/20 completed Not Available Not Available Not Available phentermi ne 37.5 mg tablet TAKE 1 TABLET BY MOUTH EVERY MORNING 05/09 completed Not Available Not Available Not Available Tamiflu 75 mg capsule Take 1 capsule twice a day by oral route. active Not Available Not Available No t Available sulfameth oxazole 800 mg-trimet hoprim 160 mg tablet Take 1 tablet every 12 hours by oral route. active Not Available Not Available No t Available tramadol 50 mg tablet Take 1-2 TABLET EVERY 6 HOURS by oral route. 11/20 completed Not Available Not Available Not Available triamcino lone acetonide 0.1 % topical cream APPLY A THIN LAYER TO THE AFFECTED AREA(S) BY TOPICAL ROUTE 2 TIMES PER DAY 2022 active Not Available Not Available Not Avai lable Kenalog 40 mg/mL suspensio n for injection Take 1 mL every day by injectio n route. 2022 active Not Available Not Available Not Avai lable verapamil 120 mg tablet active Not Available Not Available Not Available oxycodone -acetamin ophen 5 mg-325 mg tablet active Not Available Not Available Not Available alprazola m 0.5 mg tablet TAKE 1 TABLET BY MOUTH EVERY 8 HOURS NEEDED active Not Available Not Available No t Available benzonata te 100 mg capsule 03/05 completed Not Available Not Available Not Available cephalexi n 500 mg capsule active Not Available Not Available Not Available pantopraz ole 40 mg tablet,de layed release TAKE 1 TABLET BY MOUTH ONCE DAILY 08/20 completed Not Available Not Available Not Available WelChol 625 mg tablet Take 6 tablets every day by oral route. active Not Available Not Available No t Available Hyzaar 100 mg-25 mg tablet 12/11 completed Not Available Not Available Not Available triamcino lone acetonide 0.1 % topical ointment APPLY A THIN LAYER TO THE AFFECTED AREA(S) BY TOPICAL ROUTE 2 TIMES PER DAY active Not Available Not Available No t Available clotrimaz ole-betam ethasone 1 %-0.05 % topical cream APPLY TO THE AFFECTED area twice a day active Not Available Not Available No t Available Advair Diskus 250 mcg-50 mcg/dose powder for inhalatio n one puff po bid 07/30 completed Not Available Not Available Not Available verapamil ER (SR) 240 mg tablet,ex tended release TAKE 1 AND 1/2 TABLETS BY MOUTH DAILY active Not Available Not Available No t Available monteluka st 10 mg tablet Take 1 tablet every day by oral route at bedtime. active Not Available Not Available No t Available zolpidem 5 mg tablet Take 1 tablet every day by oral route. active Not Available Not Available No t Available ergocalci ferol (vitamin D2) 1,250 mcg (50,000 unit) capsule Take 1 capsule every week by oral route. 11/20 completed Not Available Not Available Not Available ibuprofen 600 mg tablet 07/30 completed Not Available Not Available Not Available levofloxa rocael 500 mg tablet Take 1 tablet every 24 hours by oral route for 10 days. active Not Available Not Available No t Available Septra DS 800 mg-160 mg tablet Take 1 tablet every 12 hours by oral route for 10 days. 02/02 completed Not Available Not Available Not Available zolpidem 10 mg tablet Take 1 tablet every day by oral route. 07/30 completed Not Available Not Available Not Available albuterol sulfate HFA 90 mcg/actua tion aerosol inhaler 2 puffs every 4 hours active Not Available Not Available No t Available ondansetr on 4 mg disintegr ating tablet active Not Available Not Available Not Available cefdinir 300 mg capsule active Not Available Not Available Not Available fluoxetin e 20 mg capsule active Not Available Not Available Not Available fluticaso ne propionat e 50 mcg/actua tion nasal spray,antolin pension Inhale 2 sprays every day by intranas al route. 12/11 completed Not Available Not Available Not Available metformin ER 500 mg tablet,ex tended release 24 hr Take 2 tablets every day by oral route. 05/26 completed Not Available Not Available Not Available phentermi ne 37.5 mg capsule TAKE 1 CAPSULE BY MOUTH DAILY active Not Available Not Available No t Available naproxen 500 mg tablet TAKE 1 TABLET BY MOUTH TWICE DAILY NEEDED FOR PAIN active Not Available Not Available No t Available diazepam 5 mg tablet active Not Available Not Available Not Available verapamil ER 120 mg 24 hr capsule,e xtended release 1 po daily active Not Available Not Available No t Available metaxalon e 800 mg tablet Take 1 tablet 3 times a day by oral route as needed. active Not Available Not Available No t Available ezetimibe 10 mg tablet Take 1 tablet every day by oral route. active Not Available Not Available No t Available cyclobenz aprine 5 mg tablet active Not Available Not Available No t Available rosuvasta tin 5 mg tablet Take 1 tablet every day by oral route. 08/20 completed bad side effects Not Available Not Available Not Available Crestor 10 mg tablet Take 1 tablet every day by oral route. active Not Available Not Available No t Available Micardis HCT 80 mg-25 mg tablet Take 1 tablet every day by oral route. 2014 active Not Available Not Available Not Avai lable zolpidem ER 12.5 mg tablet,ex tended release,m ultiphase Take 1 tablet every day by oral route. active Not Available Not Available No t Available losartan 100 mg-hydroc hlorothia zide 12.5 mg tablet Take 1 tablet every day by oral route for 90 days. active Not Available Not Available No t Available magnesium active Not Available Not Genet ilable Not Available niacin active Not Available Not Availa ble Not Available Januvia 100 mg tablet Take 1 tablet every day by oral route. active Not Available Not Available No t Available Symbicort 160 mcg-4.5 mcg/actua tion HFA aerosol inhaler 2 puffs BID active Not Available Not Available No t Available FreeStyle Lite Strips active Not Available Not Available Not Available Freestyle InsuLinx meter active Not Available Not Available Not Available Qsymia 3.75 mg-23 mg capsule, extended release Take 1 capsule every day by oral route for 14 days. 10/16 completed Not Available Not Available Not Available Qsymia 7.5 mg-46 mg capsule, extended release Take 1 capsule every day by oral route. active Not Available Not Available No t Available TRUEplus Lancets 28 gauge active Not Available Not Available Not Available Stimulant Laxative Plus 8.6 mg-50 mg tablet TAKE 2 TABLET BY MOUTH TWICE DAILY active Not Available Not Available No t Available Trulicity 1.5 mg/0.5 mL subcutane ous pen injector 12/02 completed Not Available Not Available Not Available naloxone 4 mg/actuat ion nasal spray CALL 911. SPR CONTENTS OF ONE SPRAYER (0.1ML) INTO ONE NOSTRIL. REPEAT IN 2-3 MIN IF SYMPTOMS OF OPIOID EMERGENC Y PERSIST, ALTERNAT E NOSTRILS active Not Available Not Available No t Available Fluvirin (PF) 45 mcg(15 mcg x3)/0.5 mL intramusc ular syringe ADM 0.5ML IM UTD 03/05 completed Not Available Not Available Not Available Ozempic 0.25 mg or 0.5 mg (2 mg/1.5 mL) subcutane ous pen injector Inject 0.25 mg every week by subcutan eous route for 30 days. active Not Available Not Available No t Available Wixela Inhub 500 mcg-50 mcg/dose powder for inhalatio n INHALE 1 PUFF BY MOUTH TWICE DAILY active Not Available Not Available No t Available Fluzone High-Dose Quad (PF) 240 mcg/0.7 mL IM syringe PHARMACY ADMINIST ERED 04/26 completed Not Available Not Available Not Available Trulicity 3 mg/0.5 mL subcutane ous pen injector Inject 3 mg every week by subcutan eous route. 05/09 completed Not Available Not Available Not Available NiranjanW COVID-19 Ag Self Test kit Use as Directed on the Package 05/09 completed Not Available Not Available Not Available Mounjaro 7.5 mg/0.5 mL subcutane ous pen injector Inject 7.5 mg every week by subcutan eous route. active Not Available Not Available No t Available Mounjaro 5 mg/0.5 mL subcutane ous pen injector ADMINIST ER 5 MG UNDER THE SKIN EVERY WEEK active Not Available Not Available No t Available Mounjaro 2.5 mg/0.5 mL subcutane ous pen injector active Not Available Not Available Not Available Vitals Date Recorded Body weight Body temperature Heart rate Oxygen saturation Oxygen saturation in Arterial blood by Pulse oximetry Systolic blood pressure Diastolic blood pressure Provider Name and Address Organization Details Last Updated DateTime 4 42452.7 1 g 97.8 [degF] 67 /min 98 % 98 % 162 mm[Hg] 84 mm[Hg] Amelie Davis MA [employer] 4 12:32:29 Date Recorded Body height Body mass index (BMI) Body weight Body temperature Heart rate Oxygen saturation Oxygen saturation in Arterial blood by Pulse oximetry Systolic blood pressure Diastolic blood pressure Provider Name and Address Organization Details Last Updated DateTime 3 168.28 cm 25.7 kg/m2 47930.2 2 g 98.1 [degF] 70 /min 97 % 97 % 120 mm[Hg] 72 mm[Hg] Shante Woodruff MA [employer] 3 15:10:11 Date Recorded Body height Body mass index (BMI) Body weight Body temperature Heart rate Oxygen saturation Oxygen saturation in Arterial blood by Pulse oximetry Systolic blood pressure Diastolic blood pressure Provider Name and Address Organization Details Last Updated DateTime 3 168.28 cm 23.1 kg/m2 74550.3 g 97.9 [degF] 63 /min 98 % 98 % 142 mm[Hg] 80 mm[Hg] CARSON Peacock [facility] [employer] [facility] 3 11:47:07 Date Recorded Body height Body mass index (BMI) Body weight Body temperature Heart rate Oxygen saturation Oxygen saturation in Arterial blood by Pulse oximetry Systolic blood pressure Diastolic blood pressure Provider Name and Address Organization Details Last Updated DateTime 3 168.28 cm 22.3 kg/m2 96369.1 4 g 98.1 [degF] 68 /min 96 % 96 % 128 mm[Hg] 62 mm[Hg] Amelie Davis MA [facility] [employer] [facility] 3 15:09:56 Date Recorded Body height Body mass index (BMI) Body weight Body temperature Heart rate Respiratory rate Oxygen saturation Oxygen saturation in Arterial blood by Pulse oximetry Systolic blood pressure Diastolic blood pressure Provider Name and Address Organization Details Last Updated DateTime 3 168.28 cm 24 kg/m2 27910.8 6 g 98.3 [degF] 68 /min 16 /min 97 % 97 % 134 mm[Hg] 72 mm[Hg] Magaly Figueroa RN [facility] [employer] [facility] 3 11:51:32 Social History Question Answer Notes LastModified by [employer] Details LastModified Time Tobacco Smoking Status Former Smoker Not Available [facility] 01/10/2023 08:05:56 In The 14 Days Before Symptom Onset, Have You Had Close Contact With A Laboratory-confirm ed COVID-19 While That Case Was Ill? No [id number] Information not available 01/10/2023 In The 14 Days Before Symptom Onset, Have You Had Close Contact With A Person Who Is Under Investigation For COVID-19 While That Person Was Ill? No [id number] Information not available 01/10/2023 How Much Tobacco Do You Smoke? 1 PPW 3 Cigarets/ Week [id number] Information not available 01/10/2023 Sex: Unknown Functional Status Question Answer Note LastModified by [employer] Details LastModified Time What is your level of alcohol consumption? Occasional [id number] Information not available 01/10/2023 Mental Status None recorded. Family History Relationship Description Onset Age of this Age Resolved Age Notes LastModified by Organization Details LastModified Time Mother Family history of malignant neoplasm [id number] Not available 01/10/2023 08:06:04 Mother Hypertensive disorder [id number] Not available 01/10/2023 08:06:04 Medical History No medical history recorded. Gynecological HistoryNo gynecological history recorded. Obstetrics History GPAL:G 0 P 0 0 0 0 Immunizations Vaccine Type Date Status Note Provider Nam e and Address Organization Details Recorded Time influenza nasal, unspecified formulation 2 completed Not Available [facility] 01/10/2023 08:12:34 Tdap 7 completed Not Available [facility] 01/10/2023 08:12:35 Past Encounters Encounter ID Performer Location Encounter Start Date Encounter Closed Date Diagnosis/Indication Diagnosis SNOMED-CT Code Diagnosis ICD10 Code Diagnosis Note [id number] Kimberley Rodriguez MD [facility] [place] [address] [place] [address] 04/26/2021 00:00:00 04/26/2021 19:59:18 [id number] Kimberley Rodriguez MD [facility] [place] [address] [place] [address] 08/15/2021 00:00:00 08/15/2021 21:01:21 [id number] Kimberley Rodriguez MD [facility] [place] [address] [place] [address] 08/25/2021 00:00:00 08/26/2021 08:33:40 [id number] Kimberley Rodriguez MD [facility] [place] [address] [place] [address] 12/02/2021 00:00:00 12/03/2021 12:58:50 [id number] Kimberley Rodriguez MD [facility] [place] [address] [place] [address] 02/07/2022 00:00:00 02/07/2022 19:21:38 [id number] Kimberley Rodriguez MD [facility] [place] [address] [facility] [place] [address] 03/08/2022 00:00:00 03/08/2022 13:51:10 [id number] Kimberley Rodriguez MD [facility] [place] [address] [facility] [place] [address] 05/09/2022 00:00:00 05/09/2022 21:02:56 [id number] Kimberley Rodriguez MD [facility] [place] [address] [facility] [place] [address] 01/17/2023 14:57:08 01/17/2023 15:37:17 History and physical examination, pre-employment [id number] Z02.1 Form filled out for work Type 2 naeem betes mellitus without complication [id number] E11.9 F/u in 3 months. [id number] Kimberley Rodriguez MD [facility] [place] [address] [facility] [place] [address] 05/09/2023 11:37:01 05/09/2023 12:06:56 Type 2 diabetes mellitus without complication [id number] E11.9 F/u in 6 months A1C was 5.6% in 05/04 and is feeling better continue mounjaro at 7.5 mg weekly. [id number] Kimberley Rodriguez MD [facility] [place] [address] [facility] [place] [address] 08/20/2023 15:02:19 08/20/2023 15:58:35 Pre-surgery evaluation [id number] Z01.818 Cleared for surgery Seasonal a llergic rhinitis 209450304 J30.2 Upper resp iratory infection 45417886 J06.9 Asthma 243257573 J45.90 9 Vaginitis 77640202 N76.0 [id number] Kimberley Rodriguez MD [facility] [place] [address] [facility] [place] [address] 10/02/2023 11:30:48 10/02/2023 12:31:52 Chronic obstructive pulmonary disease 14905735 J44.9 Tubing given and sent order for this too Type 2 naeem betes mellitus without complication 167387486 E11.9 Needs refill of mounjaro 7.5 mg Eruption 392293097 R21 Liver enzy mes level above reference range 293357907 R74.01 Recheck LFTs in 2 months. [id number] Kimberley Rodriguez MD [facility] [place] [address] [facility] [place] [address] 12/06/2023 11:40:11 12/12/2023 15:06:15 Type 2 diabetes mellitus 07881166 E11.9 Allergic rhinitis 955804 04 J30.9 Anxiety 42402838 F41.9 Anemia 988746480 D64.9 Essential hypertension 21188074 I10 Hyperlipidemia 71507977 E78.5 Insomnia 431862407 G47.0 0 Low back pain 995942758 M54.50 Health Concerns Section Related Observation LastModified by Organization Detai ls LastModified Time None Recorded Concern Status LastModified by Organization Details LastModified Time None Recorded Advance Directives Directive None Recorded Payers Encounter Date Sequence Insurance Name Policy Number Policy Santos Covered Member ID Santos Member ID Guarantor Name 01/17/2023 2 FOR LIFE ( - MEDICARE SUPPLEMENT) [place] Dennis [id number] [place] Dennis 01/17/2023 1 [employer] (MEDICARE REPLACEMENT/ ADVANTAGE - PPO) [id number] Virginia Dennis [id number] Virginia Dennis 05/09/2023 2 FOR LIFE ( - MEDICARE SUPPLEMENT) [place] Dennis [id number] [place] Dennis 05/09/2023 1 [employer] (MEDICARE REPLACEMENT/ ADVANTAGE - PPO) [id number] Virginia Dennis [id number] Virginia Dennis 08/20/2023 2 FOR LIFE ( - MEDICARE SUPPLEMENT) [place] Dennis [id number] Virginia Dennis 08/20/2023 1 [employer] (MEDICARE REPLACEMENT/ ADVANTAGE - PPO) [id number] Virginia Dennis [id number] Virginia Dennis 10/02/2023 2 FOR LIFE ( - MEDICARE SUPPLEMENT) [place] Dennis [id number] [place] Dennis 10/02/2023 1 [employer] (MEDICARE REPLACEMENT/ ADVANTAGE - PPO) [id number] [place] Dennis [id number] Virginia Dennis 12/05/2023 2 FOR LIFE ( - MEDICARE SUPPLEMENT) [place] Dennis [id number] [place] Dennis 12/05/2023 1 [employer] (MEDICARE REPLACEMENT/ ADVANTAGE - PPO) [id number] Virginia Dennis [id number] Virginia Dennis Notes Date Note Type Note Provider Name and Address Organization Details Recorded Time 01/17/2023 text/html Here today for work physical. 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 Pt is wanting to try something other than trulicity for DM interested in mounjaro. Kimberley Rodriugez MD [address], [place], [address], [employer] 01/18/2023 05:55:49 05/09/2023 text/html Here today for f/u of weight loss is on mounjaro. Is doing ok. Is on 7.5 mg. Her left hip feels better. Has a little pain in back. Her eFGR is 91 and doing ok. She was told she had CKD 1 by visiting nurse. Kimberley Rodriguez MD [address] [employer], [place], [address], [employer] 05/09/2023 21:16:16 08/20/2023 text/html Here today for allergies real bad but started feeling bad. Did COVID testing and was negative.Has a left hip surgery on 09/14/23. No hx of problems with anesthesia. Needs a pre surgery clearance. Has pain in left hip and back.Has a slight whitish discharge and some itching. It is infrequent. Not sexually active x 3 years.Pt needs refills of inhalers and neb solution. Kimberley Rodriguez MD [address], [place], [address], [employer] 08/21/2023 06:14:50 10/02/2023 text/html Here today for needing tubing for nebulizer. Has COPD. Is needing new tubing for nebulizer machineHas a rash on shoulder.Needs mounjaro refilled. A1C in 09/03 it was 5.1% Has surgery scheduled for 10/08/23 for left hip replacement. Kimberley Rodriguez MD [address], [place], [address], [employer] 10/03/2023 10:42:42 12/05/2023 text/html here for f/u , has not been taking BP med correctly , will get back on it all SATHISH Tineo [address], [place], [address], [employer] 12/09/2023 16:41:56 OBGyn Episode No OBEpisode recorded.
--- OUTSIDE RECORDS SUMMARY | 2025-04-11 22:20 | XMS_ITS | Encounter Summary ---
Author Organization [facility] Address 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 Gender Identity Not on file Sexual Orientation Not on file documented as of this encounter Plan of Treatment Not on file documented as of this encounter Procedures Procedure Name Priority Date/Time Associated Diagnosis Comments CBC WITH DIFFERENTIAL Stat 04/12/2009 3:14 PM CDT COMPREHENSIVE METABOLIC PANEL Stat 04/12/2009 3:14 PM CDT documented in this encounter Results * (ABNORMAL) COMPREHENSIVE METABOLIC PANEL (04/12/2009 3:14 PM CDT) CALCIUM 9.6 8.6 - 10.2 mg/dL [facility] ALBUMIN 4.1 3.4 - 4.8 g/dL [facility] CREATININE 0.55 0.51 - 0.95 mg/dL [facility] ALT 24 0 - 31 U/L [facility] CO2 19(L) 22 - 30 mmol/L [facility] SODIUM 135 135 - 145 mmol/L [facility] ALKALINE PHOSPHATASE 64 35 - 104 U/L [facility] POTASSIUM 3.2(L) 3.5 - 4.9 mmol/L [facility] BILIRUBIN TOTAL 0.5 0.2 - 1.0 mg/dL [facility] TOTAL PROTEIN 8.1 6.3 - 8.6 g/dL [facility] GLUCOSE 119(H) 65 - 99 mg/dL [facility] AST 30 12 - 32 U/L [facility] BUN 11 6 - 20 mg/dL [facility] CHLORIDE 100 96 - 108 mmol/L [facility] GFR, >60 >=60 mL/min/1. 7 sq meter [facility] GFR >60 >=60 mL/min/1. 7 sq meter [facility] Comment: Modification of Diet in Renal Disease (MDRD) study formula. Estimated GFR rate interpretative information for both Americans and non- Americans is available on the [facility] Intranet at: [email or web address] Select: Lab Policies and Procedures Select: Reference Ranges - GFR 04/12/2009 3:14 PM CDT 04/12/2009 3:20 PM CDT us Bro Trejo MD CHEMISTRY ORDERABLES Edited INTERFACE SYSTEM Refer to clinic/hospital department [facility] CLIA# [id number] [address] [place] [address] * (ABNORMAL) CBC WITH DIFFERENTIAL (04/12/2009 3:14 PM CDT) WBC 4.4 4.0 - 9.8 K/uL [facility] MCH 30.6 27.2 - 32.6 pg [facility] MPV 10.4 9.3 - 12.4 fL [facility] HEMATOCRIT 42.6 35.5 - 44.0 % [facility] RDW-STDEV 44.9 37.1 - 48.7 fL [facility] RBC 4.71 3.90 - 4.90 M/uL [facility] MCHC 33.8 31.5 - 35.5 % [facility] MCV 90.4 82.0 - 99.0 fL [facility] PLATELETS 269 140 - 350 K/uL [facility] HEMOGLOBIN 14.4 11.8 - 14.8 g/dL [facility] RDW 13.5 11.5 - 14.5 % [facility] LYMPHOCYTE ABSOLUTE 2.11 0.70 - 4.50 K/uL [facility] BASOPHILS 1 0 - 2 % [facility] BASOPHILS ABSOLUTE 0.06 0.00 - 0.20 K/uL [facility] MONOCYTES 8 3 - 13 % [facility] MONOCYTE ABSOLUTE 0.35 0.10 - 1.30 K/uL [facility] NEUTROPHILS 33(L) 45 - 70 % [facility] NEUTROPHIL ABSOLUTE 1.46(L) 1.90 - 7.00 K/uL [facility] EOSINOPHILS 10(H) 0 - 7 % [facility] EOSINOPHIL ABSOLUTE 0.45 0.00 - 0.70 K/uL [facility] LYMPHOCYTES 48(H) 16 - 45 % [facility] 04/12/2009 3:14 PM CDT 04/12/2009 3:20 PM CDT us Bro Trejo MD HEMATOLOGY ORDERABLES Edited INTERFACE SYSTEM Refer to clinic/hospital department [facility] CLIA# [id number] [address] [place] [address] documented in this encounter Visit Diagnoses Diagnosis Carcinoma in situ of breast documented in this encounter Care Teams Filter Worker Relationship Specialty Start Date End Date Kimberley Rodriguez MD PCP - General 10/14/09 documented as of this encounter
--- OUTSIDE RECORDS SUMMARY | 2025-04-11 22:20 | XMS_ITS | Encounter Summary ---
Author Organization [employer] Address 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 Gender Identity Not on file Sexual Orientation Not on file documented as of this encounter Plan of Treatment Not on file documented as of this encounter Procedures Procedure Name Priority Date/Time Associated Diagnosis Comments TSH REFLEXIVE Stat 10/07/2008 4:00 PM VENEER PRODUCTION MACHINE OPERATOR CBC WITH DIFFERENTIAL Stat 10/07/2008 4:00 PM VENEER PRODUCTION MACHINE OPERATOR COMPREHENSIVE METABOLIC PANEL Stat 10/07/2008 4:00 PM VENEER PRODUCTION MACHINE OPERATOR documented in this encounter Results * (ABNORMAL) COMPREHENSIVE METABOLIC PANEL (10/07/2008 4:00 PM VENEER PRODUCTION MACHINE OPERATOR) CREATININE 0.61 0.51 - 0.95 mg/dL [facility] SODIUM 136 135 - 145 mmol/L [facility] ALT 21 0 - 31 U/L [facility] ALKALINE PHOSPHATASE 61 35 - 104 U/L [facility] BILIRUBIN TOTAL 0.4 0.2 - 1.0 mg/dL [facility] CO2 27 22 - 30 mmol/L [facility] TOTAL PROTEIN 8.2 6.3 - 8.6 g/dL [facility] POTASSIUM 3.5 3.5 - 4.9 mmol/L [facility] GLUCOSE 132(H) 65 - 99 mg/dL [facility] AST 25 12 - 32 U/L [facility] BUN 14 6 - 20 mg/dL [facility] CALCIUM 9.8 8.6 - 10.2 mg/dL [facility] CHLORIDE 99 96 - 108 mmol/L [facility] ALBUMIN 4.1 3.4 - 4.8 g/dL [facility] GFR, >60 >=60 mL/min/1. 7 sq meter [facility] GFR >60 >=60 mL/min/1. 7 sq meter [facility] Comment: Modification of Diet in Renal Disease (MDRD) study formula. Estimated GFR rate interpretative information for both Americans and non- Americans is available on the [facility] Intranet at: [email or web address] Select: Lab Policies and Procedures Select: Reference Ranges - GFR Blood specimen (specimen) 10/07/2008 4:00 PM VENEER PRODUCTION MACHINE OPERATOR 10/07/2008 4:03 PM VENEER PRODUCTION MACHINE OPERATOR us Bro Trejo MD CHEMISTRY ORDERABLES Edited INTERFACE SYSTEM Refer to clinic/hospital department [facility] CLIA# [id number] [address] [facility] [address] [place], [place] [address] * TSH REFLEXIVE (10/07/2008 4:00 PM VENEER PRODUCTION MACHINE OPERATOR) TSH 0.68 0.27 - 4.20 uU/mL [facility] Blood specimen (specimen) 10/07/2008 4:00 PM VENEER PRODUCTION MACHINE OPERATOR 10/07/2008 4:03 PM VENEER PRODUCTION MACHINE OPERATOR us Bro Trejo MD CHEMISTRY ORDERABLES Final R esult INTERFACE SYSTEM Refer to clinic/hospital department [facility] CLIA# [id number] [address] [place], [place] [address] * (ABNORMAL) CBC WITH DIFFERENTIAL (10/07/2008 4:00 PM VENEER PRODUCTION MACHINE OPERATOR) [facility] MCHC 34.0 31.5 - 35.5 % [facility] MCV 88.9 82.0 - 99.0 fL [facility] PLATELETS 269 140 - 350 K/uL [facility] HEMOGLOBIN 14.2 11.8 - 14.8 g/dL [facility] RDW 14.4 11.5 - 14.5 % [facility] WBC 4.6 4.0 - 9.8 K/uL [facility] MCH 30.2 27.2 - 32.6 pg [facility] MPV 10.2 9.3 - 12.4 fL [facility] HEMATOCRIT 41.8 35.5 - 44.0 % [facility] RDW-STDEV 46.8 37.1 - 48.7 fL [facility] RBC 4.70 3.90 - 4.90 M/uL [facility] NEUTROPHILS 38(L) 45 - 70 % [facility] NEUTROPHIL ABSOLUTE 1.72(L) 1.90 - 7.00 K/uL [facility] EOSINOPHILS 5 0 - 7 % [facility] EOSINOPHIL ABSOLUTE 0.24 0.00 - 0.70 K/uL [facility] LYMPHOCYTES 44 16 - 45 % [facility] LYMPHOCYTE ABSOLUTE 2.03 0.70 - 4.50 K/uL [facility] BASOPHILS 2 0 - 2 % [facility] BASOPHILS ABSOLUTE 0.07 0.00 - 0.20 K/uL [facility] MONOCYTES 11 3 - 13 % [facility] MONOCYTE ABSOLUTE 0.52 0.10 - 1.30 K/uL [facility] Blood specimen (specimen) 10/07/2008 4:00 PM VENEER PRODUCTION MACHINE OPERATOR 10/07/2008 4:03 PM VENEER PRODUCTION MACHINE OPERATOR us Bro Trejo MD HEMATOLOGY ORDERABLES Edited INTERFACE SYSTEM Refer to clinic/hospital department [facility] CLIA# [id number] [address] [place] [address] documented in this encounter Visit Diagnoses Diagnosis Malignant neoplasm of breast (female), unspecified site documented in this encounter Care Teams Semi Driver Relationship Specialty Start Date End Date Kimberley Rodriguez MD PCP - General 10/14/09 documented as of this encounter
--- OUTSIDE RECORDS SUMMARY | 2025-04-11 22:20 | XMS_ITS | Referral Summary ---
Author Organization [facility] 8 [facility] Address [address] [place] [address] Care Team Providers Care Watchmaking Teacher Name Role Phone Mike Boyd MD Unavailable [phone] Agustín Glasgow MD Primary Care Provider [phone] Encounters Date Type Department Care Team Description 04/07/[address] [address] Krista Quiñonez MA Chart Review (Med adherence) 03/18/2025 Results Follow-Up [facility] Medical [facility] Primary Care at [address] [address] Agustín Glasgow MD CBC with auto differential, Comprehensive metabolic panel, Hemoglobin A1c, Additional followed-up results: 5 03/17/2025 9:48 AM CDT - 03/17/2025 11:59 PM CDT Hospital Encounter [address] [id number] Hypertension associated with diabetes (HCC); Vitamin D insufficiency Discharge Disposition: Discharge to home or self care 03/17/2025 ACO Clinical Pharmacist [address] [address] Yesenia Baugh RPh 03/17/2025 9:45 AM CDT Lab [facility] Outpatient Lab at [address] [address] 03/17/2025 9:15 AM CDT Office Visit [facility] Medical [facility] Primary Care at [address] [phone] Agustín Glasgow MD Hypertension associated with diabetes (HCC) (Primary Dx); Mixed hyperlipidemia; Mild intermittent asthma without complication; Chronic midline low back pain with right-sided sciatica; Vitamin D insufficiency 03/12/2025 ACO Clinical Pharmacist [address] [address] Yesenia Baugh RPh 03/10/[address] [address] Krista Quiñonez MA Chart Review (Med adherence) 03/10/2025 Telephone [facility] Gastroenterology at [address], [place] [address] Sonya Gómez MA 03/09/2025 Telephone [facility] Medical [facility] Gastroenterology at [address] [address] Sonya Gómez MA 03/09/2025 9:14 AM CDT Anesthesia Event [address] [address] Anthony Couch MD Alexander, Jeffrey Michael, DO 03/09/2025 9:30 AM CDT - 03/09/2025 10:00 AM CDT Surgery [address] [address] Margarito Blair DO COLONOSCOPY 03/09/2025 8:25 AM CDT - 03/09/2025 10:16 AM CDT Hospital Encounter [address] [address] Margarito Blair DO Discharge Disposition: Discharge to home or self care 01/27/2025 Telephone [facility] Medical [facility] Gastroenterology at [address], [place] [address] Bonnie Bellamy Prep Instructions from Last 3 Months Allergies Active Allergy Reactions Criticality Noted Date Comments Codeine Unknown High 05/04/2010 Latex Rash,Unknown 11/30/2009 Reaction: Rash, Kslqtlv-Gik-Reb Reductase Inhibitors Muscle pain Medium 06/19/2024 Sulfa [...] mg total) by mouth nightly 30 capsule 11 05/ 026 Active verapamil ER (VERELAN) 360 mg 24 hr capsule Take 1 capsule (360 mg total) by mouth nightly 30 capsule 06/13/20 025 Discontinued(Re order) tirzepatide (Mounjaro) 10 mg/0.5 mL pen injector injectionIndic ations:Hyperte nsion associated with diabetes (HCC) INJECT 0.5 ML (10 MG TOTAL) UNDER THE SKIN ONCE A WEEK 2 mL 1 02/14/20 025 Discontinued Active Problems Problem Noted Date Diagnosed Date Statin myopathy 10/14/2024 06/19/2024 History of colonic polyps 09/17/2024 Encounter for screening colonoscopy 09/17/2024 Encounter for Medicare annual wellness exam 03/2024 Assessment & Plan (09/16/2024 8:58 AM STUDENT AFFAIRS DEAN): A(n) yearly Medicare Annual Wellness Visit has [...] establish care has been performed today. Virginia Calvin is [...] Primary osteoarthritis of left hip 09/26/2022 12/03/2023 Immunizations Immunization Administration Dates Next Due Influenza Nasal, Unspecified 10/10/2022 Influenza, Quad, Adjuvantated, Intramuscular 08/2022 Influenza, Quadrivalent, Hig h Dose, Preservative Free, Intrr 10/10/2022,08/02/2020 Influenza, Trivalent, High D ose, Split, Preservative Free, Intramuscular 09/16/2024 Influenza, Trivalent, Preservative Free, Intramu scular 08/23/2017 Influenza, Unspecified 11/21/2021 Pneumococcal Conjugate Pcv20 06/12/2024 Tdap 07/30/2017 Social History Tobacco Use Types Packs/Day Years [...] on file Legal Sex Female 12:20 AM STUDENT AFFAIRS DEAN Gender Identity Female 10/18/2021 6:33 AM STUDENT AFFAIRS DEAN Sexual Orientation Straight 10/18/2021 6: 33 AM STUDENT AFFAIRS DEAN Last Filed Vital Signs Vital Sign Reading [...] 03/17/2025 9:22 AM CDT Plan of Treatment Not on file Medical Devices Implanted Type Area Check Airman Device Identifier Shelf Expiration Date Model / Serial / Lot [employer] [place] 52mm Sector Hip Shell Acetabular Gription Sterile Latex Free [id number] - [id number] Implanted:Qty: 1 on 10/08/2023 by Mike Boyd MD at [facility] Left: Hip [employer] 07/12/2033 [id number] / / [id number] [employer] [place] 52mm 36mm Hip Neutral Liner Acetabular Altrx Sterile Latex Free [id number] - [id number] Implanted:Qty: 1 on 10/08/2023 by Mike Boyd MD at [facility] Left: Hip [employer] 06/11/2028 [id number] / / [id number] [employer] Actis Collared Hip 10/25 4 Standard Offset Stem Femoral [id number] - [id number] Implanted:Qty: 1 on 10/08/2023 by Mike Boyd MD at [facility] Left: Hip [employer] 11/11/2032 [id number] / / [id number] [employer] Articul/Zeeshan 36mm Cementless Hip +5mm 10/25 Taper Head Femoral Latex Free [id number] - [id number] Implanted:Qty: 1 on 10/08/2023 by Mike Boyd MD at [facility] Left: Hip [employer] 06/11/2028 [id number] / / [id number] Procedures Procedure Name Priority Date/Time Associated Diagnosis [...] 06/23/2024 8:10 AM CDT Screening for osteoporosis longterm (current) use of inhaled steroids SCREENING MAMMOGRAM [...] Glasgow MD LAB BLOOD ORDERABLES Final Result [facility] [address] [address] [place] [address] * Differential, auto (03/17/2025 9:48 AM CDT) Neutrophil abs 1.98 1.50 - 6.50 K/cumm Imm gran abs 0.01 0.00 - 0.10 K/cumm [facility] Lymphocyte abs 1.75 0.80 - 3.30 K/cumm [facility] Monocyte abs 0.47 0.20 - 0.80 K/cumm [facility] Eosinophil abs 0.33 0.00 - 0.50 K/cumm [facility] Basophil abs 0.06 0.00 - 0.10 K/cumm [facility] Neutrophil pct 43.1 % [facility] Comment: Interpretive Data Percent cell count reference ranges are not reported, since discordance with absolute values may lead to misinterpretation of CBC data. Current Interpretive Data was last revised on 2018. Imm gran pct 0.2 % [facility] Comment: Interpretive Data Percent cell count reference ranges are not reported, since discordance with absolute values may lead to misinterpretation of CBC data. Current Interpretive Data was last revised on 2018. Lymphocyte pct 38.0 % [facility] Comment: Interpretive Data Percent cell count reference ranges are not reported, since discordance with absolute values may lead to misinterpretation of CBC data. Current Interpretive Data was last revised on 2018. Monocyte pct 10.2 % [facility] Comment: Interpretive Data Percent cell count reference ranges are not reported, since discordance with absolute values may lead to misinterpretation of CBC data. Current Interpretive Data was last revised on 2018. Eosinophil pct 7.2 % [facility] Comment: Interpretive Data Percent cell count reference ranges are not reported, since discordance with absolute values may lead to misinterpretation of CBC data. Current Interpretive Data was last revised on 2018. Basophil pct 1.3 % [facility] Comment: Interpretive Data Percent cell count reference ranges are not reported, since discordance with absolute values may lead to misinterpretation of CBC data. Current Interpretive Data was last revised on 2018. Blood 03/17/2025 9:48 AM CDT 03/17/2025 5:23 PM CDT Agustín Glasgow MD LAB BLOOD ORDERABLES Final Result Performing Organization Address City/[facility]/ZIP Co de Phone Number [facility] [address] [address] [employer] [place], [place] [id number] * Thyroid Function [place] (03/17/2025 9:48 AM CDT) Pathologist [facility] TSH 0.79 0.30 - 4.20 mcIUnit/mL Blood 03/17/2025 9:48 AM CDT 03/17/2025 5:23 PM CDT Agustín Glasgow MD LAB BLOOD ORDERABLES Final Result Performing Organization Address [facility] Co de Phone Number [facility] [address] [address] [employer] [place], [place] [id number] * (ABNORMAL) CBC with auto differential (03/17/2025 9:48 AM CDT) WBC 4.60 3.80 - 9.90 K/cumm Hgb 13.6 11.9 - 15.5 g/dL [facility] Hct 43.3 35.6 - 45.5 % [facility] Plt 327 150 - 400 K/cumm [facility] MPV 10.1 9.1 - 12.3 fL [facility] RBC 4.56 3.90 - 5.20 M/cumm [facility] MCV 95.0 81.3 - 96.4 fL [facility] MCH 29.8 27.1 - 33.3 pg [facility] MCHC 31.4(L) 32.3 - 35.7 g/dL [facility] RDW CV 14.6 11.1 - 14.9 % [facility] RDW SD 50.6(H) 35.7 - 48.1 fL [facility] NRBC abs 0.00 0.00 - 0.01 K/cumm [facility] Blood 03/17/2025 9:48 AM CDT 03/17/2025 5:23 PM CDT Result [facility] Agustín Glasgow MD LAB BLOOD ORDERABLES Final Result [facility] [address] [address] [facility] [place] [employer] [place] [address] * Vitamin D 25 hydroxy (03/17/2025 9:48 AM CDT) Vitamin D 25-OH 51 30 - 80 ng/mL Blood 03/17/2025 9:48 AM CDT 03/17/2025 5:23 PM CDT Result [facility] Agustín Glasgow MD LAB BLOOD ORDERABLES Final Result Performing Organization Address City/[facility] Co de Phone Number [facility] [address] [address] [email or web address] [address] * (ABNORMAL) Hemoglobin A1c (03/17/2025 9:48 AM CDT) Hgb A1C 5.9(H) 4.0 - 5.6 % Estimated Average Glucose 123 mg/dL [facility] Comment: The ADA recommends reporting an estimated Average Glucose (eAG) with all Hemoglobin A1c results using the equation derived from a study of 507 normal and diabetic adults. Minority populations were underrepresented and children were not included. (Diabetes Care 31:3542-2198, 2008). The eAG is not equivalent to a fasting glucose. Blood 03/17/2025 9:48 AM CDT 03/17/2025 5:23 PM CDT Result [facility] Agustín Glasgow MD LAB BLOOD ORDERABLES Final Result [facility] [address] [facility] Department of Laboratories [place] [phone] * (ABNORMAL) Lipid panel (03/17/2025 9:48 AM [...] 2018. LDL, calculated 150(H) <=129 mg/dL [facility] Comment: Interpretive Data Ages [...] NCEP Expert Panel. Circulation 2004;110:227 3. Isma Jose et al. LULÚ Cardiol. 2019March 12;5(5):540-548. doi: 10.1001/jamacardio.2020.0013 Current Interpretive Data was last revised on 2024. Non-HDL Cholesterol 161 mg/dL [facility] Comment: Interpretive Data Ages [...] last revised on 2018. Chol/HDL ratio 3 [facility] Blood 03/17/2025 9:48 AM CDT 03/17/2025 5:23 PM CDT us Agustín Glasgow MD LAB BLOOD ORDERABLES Final Result [facility] [address] [address] Department [place] [address] * Comprehensive metabolic panel (03/17/2025 9:48 AM CDT) Sodium 139 135 - 145 mmol/L Potassium, pl 4.0 3.3 - 4.9 mmol/L [facility] Chloride 104 97 - 110 mmol/L [facility] CO2 23 22 - 32 mmol/L [facility] Anion gap 12 2 - 15 mmol/L [facility] BUN 16 6 - 25 mg/dL [facility] Creatinine 0.63 0.60 - 1.10 mg/dL [facility] Glucose 95 70 - 199 mg/dL [facility] Comment: Interpretive Data Fasting glucose >/= 126 [...] classification and Diagnosis of Diabetes Diabetes Care 2021; 46: S19-S40. Current interpretive data was last [...] LAB BLOOD ORDERABLES Final Result [facility] [address] Department [place] [address] * POCT glucose (03/09/2025 9:10 AM CDT) Glucose, POC 99 70 - 199 mg/dL Blood 03/09/2025 9:10 AM CDT 03/09/2025 9:10 AM CDT Margarito Blair DO LAB POCT ORDERABLES - DEVICE F inal Result [facility]) 1 [facility] Department [place] [address] * Colonoscopy (03/09/2025 8:29 AM CDT) Anatomical Region Laterality Modality Other Narrative Procedure Note Margarito Blair DO - 03/09/2025 8:29 AM CDT [facility] [[email or web address] Patient Name: Virginia Calvin Procedure Date: 03/09/2025 8:29 AM Date of : 1955 Admit Type: Outpatient Age: 69 Gender: Female Attending MD: Margarito Blair D.O. Room: [facility] ENDOSCOPY ROOM 2 Note Status: Finalized Patient [...] under direct vision. The Pediatric Colonoscope [id number]-[id number] was introducedthrough the anus and advanced to [...] history of colonic polyps CPT copyright 2020 [employer]. All rights reserved. The codes documented in this report are preliminary and upon tugboat captain reviewmay be revised to meet current compliance requirements. Recognized by the [employer] [employer] for promoting quality in endoscopy Margarito Blair DO ENDOSCOPY PROCEDURES Final Res ult * HM DIABETES EYE EXAM (07/15/2024 10:37 AM CDT) Historical Provider HEALTH MAINTENANCE Final Result * Dexa [...] T-score -0.1 Procedure Note Ge Ordaz II, DO - 06/23/2024 Examination: Bone densitometry of the [...] Electronically signed by: Ge Ordaz II, D.O. Result [facility] Agustín Glasgow MD [facility] DXA PROCEDURES Final Re sult * Screening [...] status post left mastectomy. Agustín Glasgow MD [facility] MAMMO PROCEDURES Final Result * Hepatitis C [...] LAB MICROBIOLOGY - GENERAL ORDERABLES Final Result Performing Organization Address [facility] Co de Phone Number [facility] [address] [address] [place] [address] * Albumin Creatinine Ratio, Urine (06/12/2024 10:53 AM CDT) Albumin Ur <12.0 mg/L Comment: Interpretive Data No reference range established. Current interpretive data was last revised 2019. Creatinine Ur 112.8 mg/dL [facility] Comment: Interpretive Data No reference range established. Current interpretive data was last revised 2019. Albumin Creatinine Ratio, Ur <11 1 - 29 mg/g [facility] Urine 06/12/2024 10:5 3 AM CDT 06/12/2024 3:07 PM CDT Agustín Glasgow MD LAB URINE ORDERABLES Final Result Performing Organization Address [facility] Co de Phone Number [facility] [address] [address] Department [place] [address] from Last 3 Months or Most Recently Relevant to Health Maintenance Insurance GuideIT AETNA MEDICARE FOR LIFE AETNA MEDICARE AETNA MEDICARE FOR LIFE Advance Directives For more information, please contact: [phone] * Full Code (Latest Code Status on File) Date Activated Date Inactivated Comments 03/09/2025 8:29 AM 03/09/2025 2:16 PM * Full Code Date Activated Date Inactivated Comments 03/09/2025 8:29 AM 03/09/2025 8:29 AM * Full Code Date Activated Date Inactivated Comments 10/08/2023 4:38 PM 10/09/2023 6:31 PM Care Teams Watchmaking Teacher Relationship Specialty Start Date End Date Agustín Glasgow MD [address] [place] [address] PCP - General Family Medicine 06/12/24 Mike Boyd MD [address] [place] [address] [address] [place] [address] Surgeon Orthopedic Surgery 10/09/23
--- OUTSIDE RECORDS SUMMARY | 2025-04-11 22:20 | XMS_ITS | Encounter Summary ---
Author Organization [facility] Address [address] [place] [address] Care Team Providers Care Weave Room Supervisor Name Role Phone Kimberley Rodriguez MD Primary Care Provider [phone] Encounter Details Date Type Department Care Team (Latest Contact Info) Description 10/23/2008 Outpatient Historical [facility] Mikal Hayes MD NO ADDRESS ON FILE Malignant Neoplasm of Breast (Female), Unspecified Site (CMS/HCC) Social History Tobacco Use Types Packs/Day Years Used Date Smoking Tobacco: Never Assessed Comments Unknown Sex and Gender Information Value Date Recorded Sex Assigned at Not on file Legal Sex Female 5:34 AM WIND ENERGY TECHNICIAN Gender Identity Not on file Sexual Orientation Not on file documented as of this encounter Plan of Treatment Not on file documented as of this encounter Procedures Procedure Name Priority Date/Time Associated Diagnosis Comments MAMMO DIAGNOSTIC UNI RIGHT W OR WO CAD Routine 10/23/2008 3:08 PM WIND ENERGY TECHNICIAN documented in this encounter Results * MAMMO DIGITAL DIAG UNI RIGHT (10/23/2008 3:08 PM WIND ENERGY TECHNICIAN) Anatomical Region Laterality Modality Breast Right Other 10/23/2008 3:08 PM WIND ENERGY TECHNICIAN Narrative 03/11/2009 4:58 PM CDT [facility] [address], [place] [address] Admit Date: 10/23/2008 VIRGINIA CALVIN Sex: F Admit Prov: MIKAL MURRAY Date: 1955 Primary Care Prov: CMRN: [id number] Room: NANYLisette SSN: IMAGING SERVICES Ordering Prov: MIKAL MURRAY Accession Number: [id number] Addendum Despite multiple attempts, old films cannot be located. Routine followup is recommended at this time. Overall assessment: BIRADS category 1 - Negative Assessment BIRADS: 1-Negative Recommendation: Normal interval follow-up Dictated by: MUNIRA MATHUR Electronically signed by: MUNIRA MATHUR 03/11/2009 16:57 Transcribed: 03/11/2009 09:25 AMK Interpretation RIGHT DIAGNOSTIC DIGITAL MAMMOGRAMS WITH COMPUTER ASSISTED DIAGNOSIS 10/23/2008 History: Left mastectomy for breast cancer. A diagnostic examination of the right breast was performed. A single oblique view of the left mastectomy site was obtained. There are no comparison films. Breast parenchyma on the right is heterogeneously dense. No dominant masses, suspicious calcifications, or areas of asymmetry or distortion are identified. The single oblique view of the left mastectomy site is unremarkable. The images were reviewed using the CAD system. Impression: Status post left mastectomy. Otherwise unremarkable right breast. Comparison to prior films however recommended for completeness. Overall assessment: BIRADS category 1 - Negative Report revised on 03/11/2009 4:57:41 PM by MUNIRA MATHUR Assessment BIRADS: 1-Negative Recommendation: Normal interval follow-up Dictated by: MUNIRA MATHUR Electronically signed by: MUNIRA MATHUR 10/26/2008 08:52 Transcribed: 10/24/2008 13:07 AMK Procedure Note Munira Mathur - 03/11/2009 [facility] [address] [place], [place] [address] Admit Date: 10/23/2008 VIRGINIA CALVIN Sex: F Admit Prov: MIKAL MURRAY Date: 1955 Primary Care Prov: CMRN: [id number] Room: TARAA SSN: IMAGING SERVICES Ordering Prov: MIKAL MURRAY Addendum Despite multiple attempts, old films cannot be located. Routinefollowup is recommended at this time. Overall assessment: BIRADS category 1 - Negative Assessment BIRADS: 1-Negative Recommendation: Normal interval follow-up Dictated by: MUNIRA MATHUR Electronically signed by: MUNIRA MATHUR 03/11/2009 16:57 Transcribed: 03/11/2009 09:25 AMK Interpretation RIGHT DIAGNOSTIC DIGITAL MAMMOGRAMS WITH COMPUTER ASSISTEDDIAGNOSIS 10/23/2008 History: Left mastectomy for breast cancer. A diagnostic examination of the right breast was performed. Asingle oblique view of the left mastectomy site was obtained. There are no comparison films. Breast parenchyma on the right is heterogeneously dense. Nodominant masses, suspicious calcifications, or areas of asymmetry ordistortion are identified. The single oblique view of the left mastectomy site is unremarkable. The images were reviewed using the CAD system. Impression: Status post left mastectomy. Otherwise unremarkable right breast. Comparison to prior filmshowever recommended for completeness. Overall assessment: BIRADS category 1 - Negative Report revised on 03/11/2009 4:57:41 PM by MUNIRA MATHUR Assessment BIRADS: 1-Negative Recommendation: Normal interval follow-up Dictated by: MUNIRA MATHUR Electronically signed by: MUNIRA MATHUR 10/26/2008 08:52 Transcribed: 10/24/2008 13:07 AMK Mikal Murray MD MAMMO ORDERABLES Edited documented in this encounter Visit Diagnoses Diagnosis Malignant neoplasm of breast (female), unspecified site documented in this encounter Care Teams Weave Room Supervisor Relationship Specialty Start Date End Date Kimberley Rodriguez MD PCP - General 10/14/09 documented as of this encounter
--- OUTSIDE RECORDS SUMMARY | 2025-04-11 22:20 | XMS_ITS | Continuity of Care Document ---
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 Medication Details Route Status Patient Instructions Prescription Expires Prescription Number Last Dispense Date Ordering Provider Order Date Order Qty Source albuterol 2.5mg/3mL (0.083%) inhalation soln (3mL) See Instruct ions, # 360 mL, 3 total refill(s ), Hard Stop Complet ed 08/19/2024 3 2023 360.0 Ambulat ory Pharmac y albuterol 90 mcg inhaler [8.5g] See Instruct ions, Inhale, # 25.5 g, 3 total refill(s ), Hard Stop Inhala tion (breat he in) Complet ed 08/19/2024 3 2023 25.5 Ambulat ory Pharmac y albuterol 90 mcg/inh inhalation aerosol INHALE 2 PUFFS EVERY FOUR HOURS DIRECTED , # 25.5 g, 3 total refill(s ), Acute Complet ed 03/17/2024 3 2023 25.5 Ambulat ory Pharmac y azithromyci n 250 mg tablet (6EA) See Instruct ions, 0, # 6 EA, 0 total refill(s ), Hard Stop Complet ed 08/19/2024 3 2023 6.0 Ambulat ory Pharmac y cyclobenzap rine 10 mg oral tablet TAKE ONE TABLET BY MOUTH THREE TIMES A DAY NEEDED, # 90 EA, 3 total refill(s ), Acute Complet ed 05/08/2023 2 2022 90.0 Ambulat ory Pharmac y dulaglutide 3 mg/0.5 mL subcutaneou s solution INJECT 3MG SUB-CUTA NEOUSLY EVERY WEEK DIRECTED , # 6 mL, 2 total refill(s ), Acute Complet ed 08/23/2023 2 2022 6.0 Ambulat ory Pharmac y ezetimibe 10 mg tablet = 1 tab(s), Oral, Daily, # 30 EA, 3 total refill(s ), Soft Stop Oral (given by mouth) Ordered 5 2024 30.0 Ambulat ory Pharmac y ezetimibe 10 mg tablet 10 mg, Oral, Daily, # 90 EA, 3 total refill(s ), Hard Stop Oral (given by mouth) Complet ed 05/31/2024 3 2023 90.0 Ambulat ory Pharmac y fluconazole 150 mg tablet See Instruct ions, # 1 EA, 11 total refill(s ), Hard Stop Complet ed 08/19/2024 3 2023 1.0 Ambulat ory Pharmac y hydrochloro thiazide-lo sartan 12.5 mg-100 mg tablet See Instruct ions, # 90 EA, 1 total refill(s ), Acute Complet ed 06/08/2023 3 2022 90.0 Ambulat ory Pharmac y hydrochloro thiazide-lo sartan 12.5 mg-100 mg tablet = 1 tab(s), Oral, Daily, # 90 EA, 3 total refill(s ), Hard Stop Oral (given by mouth) Complet ed 12/04/2024 4 2024 90.0 Ambulat ory Pharmac y hydrochloro thiazide-lo sartan 12.5 mg-100 mg tablet = 1 tab(s), Oral, Daily, # 90 EA, 1 total refill(s ), Soft Stop Oral (given by mouth) Ordered 5 2024 90.0 Ambulat ory Pharmac y ProAir RespiClick 90 mcg inhaler [200] See Instruct ions, # 1 EA, 11 total refill(s ), Hard Stop Ordered 10/16/2025 4 2023 1.0 Ambulat ory Pharmac y valACYclovi r 1 g oral tablet TAKE 1 TABLET EVERY DAY, # 90 EA, 3 total refill(s ), Acute Complet ed 01/08/2024 3 2023 90.0 Ambulat ory Pharmac y verapamil SR 120 mg/24 hour capsule See Instruct ions, # 30 EA, 11 total refill(s ), Soft Stop Discont inued 03/31/2025 5 2024 30.0 Ambulat ory Pharmac y verapamil SR 240 mg tablet See Instruct ions, # 135 EA, 3 total refill(s ), Acute Complet ed 12/20/2023 3 2023 135.0 Ambulat ory Pharmac y verapamil SR 240 mg tablet See Instruct ions, Oral, # 135 EA, 3 total refill(s ), Hard Stop Oral (given by mouth) Complet ed 12/04/2024 5 2024 135.0 Ambulat ory Pharmac y verapamil SR 360 mg/24 hour capsule = 1 cap(s), Oral, # 30 EA, 11 total refill(s ), Soft Stop Oral (given by mouth) Ordered 5 2024 30.0 Ambulat ory Pharmac y Wixela Inhub 500-50 mcg inhaler (60EA) See Instruct ions, # 180 EA, 3 total refill(s ), Acute Complet ed 03/17/2024 3 2023 180.0 Ambulat ory Pharmac y Wixela Inhub 500-50 mcg inhaler (60EA) See Instruct ions, # 60 EA, 11 total refill(s ), Hard Stop, HEBER Ordered 10/16/2025 4 2023 60.0 Ambulat ory Pharmac y Allergies, Adverse Reactions, Alerts Combined list of allergies from Department of Defense and Veterans Affairs facilities. It does not include entries that were removed or entered in error. Substance Category Reaction Severity Reaction type Status Date Reported Comments Source penicillin G benzathine Propensity to adverse reactions to drug Unknown Active Unknown Organizatio n PENICILLIN G POTASSIUM Drug allergy (disorder) Unknown active 0 [facility] Gene ARIZMENDI ([facility] [place] Immunizations Combined list of available immunizations from the Department of Defense and Veterans Affairs facilities. Immunization Series Date Given Administered By Site Reaction Lot Number CVX Code Drug Insulation Power Unit Tender Status Comments Source influenza virus vaccine, inactivated 2021 zzMarti Arm [id number] Seqirus complet ed influenza virus vaccine, inactivat ed 11/21/21 Given Ambulat ory Pharmac y Influenza vaccine, quadrivalent, adjuvanted (Fluad) 1 2021 Unknown, Provider [id number] Seqirus (SEQ) complet ed Influenza vaccine, quadrival ent, adjuvante d (Fluad) DoD Procedures Combined list of: 1) Procedures from Department of Veterans Affairs facilities [facility], not all [place] non-surgical procedures are included; 2) All procedures from the Department of Defense facilities. Procedure Procedure Type Code Date Perfomer Comments Sourc e No data available for this section Ambulatory P harmacy Social History Combined list of available smoking, tobacco, and other social history from Department of Defense and Veterans Affairs facilities. Social History Type Response Date Comment Sourc e This section is an empty social history section. DoD Assessment and Plan Combined list of future care activities from Department of Defense and Veterans Affairs facilities (e.g., assessment and plan notes, appointments, orders, and referrals). Additional future care activities may be listed in the Plan of Care section. Result Assessment and Plan Date Source Assessment and Plan No data available for this section 04/12/2025 Ambulatory Pharmacy Functional Status Combined list of recent functional and cognitive assessments recorded at Department of Defense and [facility] Affairs ([place] Functional [place] Measurement (FIM) Scale: 1 = Total Assistance (Subject = 0% +), 2 = Maximal Assistance (Subject = 25% +), 3 = Moderate Assistance (Subject = 50% +), 4 = Minimal Assistance (Subject = 75% +), 5 = Supervision, 6 = Modified [place] (Device), 7 = Complete [place] (Timely, Safely). Assessment Date/Time Source Assessment Type Assessment Skill Assessment Score Assessment Details No data available for this section
--- OUTSIDE RECORDS SUMMARY | 2025-04-11 22:20 | XMS_ITS | Encounter Summary ---
Author Organization [facility] [employer] Address 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 Gender Identity Not on file Sexual Orientation Not on file documented as of this encounter Plan of Treatment Not on file documented as of this encounter Procedures Procedure Name Priority Date/Time Associated Diagnosis Comments CBC WITH DIFFERENTIAL Stat 04/08/2008 2:34 PM CDT COMPREHENSIVE METABOLIC PANEL Stat 04/08/2008 2:34 PM CDT documented in this encounter Results * (ABNORMAL) COMPREHENSIVE METABOLIC PANEL (04/08/2008 2:34 PM CDT) CREATININE 0.76 0.51 - 0.95 mg/dL [facility] ALT 26 0 - 31 U/L [facility] SODIUM 137 135 - 145 mmol/L [facility] ALKALINE PHOSPHATASE 59 35 - 104 U/L [facility] CO2 30 22 - 30 mmol/L [facility] BILIRUBIN TOTAL 0.4 0.2 - 1.0 mg/dL [facility] POTASSIUM 4.2 3.5 - 4.9 mmol/L [facility] TOTAL PROTEIN 7.6 6.3 - 8.6 g/dL [facility] GLUCOSE 110(H) 65 - 99 mg/dL [facility] AST 31 12 - 32 U/L [facility] BUN 9 6 - 20 mg/dL [facility] CALCIUM 9.5 8.4 - 10.2 mg/dL [facility] ALBUMIN 4.1 3.4 - 4.8 g/dL [facility] CHLORIDE 98 96 - 108 mmol/L [facility] GFR, >60 >=60 mL/min/1. 7 sq meter [facility] GFR >60 >=60 mL/min/1. 7 sq meter [facility] Comment: ansiModification of Diet in Renal Disease (MDRD) study formula. Estimated GFR rate interpretative information for both Americans and non- Americans is available on the [facility] Intranet at: [email or web address] Select: Lab Policies and Procedures Select: Reference Ranges - GFR Blood specimen (specimen) 04/08/2008 2:34 PM CDT 04/08/2008 2:34 PM CDT us Bro Trejo MD CHEMISTRY ORDERABLES Edited [facility] CLIA# [id number] [address] [place] [address] * (ABNORMAL) CBC WITH DIFFERENTIAL (04/08/2008 2:34 PM CDT) HEMOGLOBIN 13.7 11.8 - 14.8 g/dL [facility] RDW-STDEV 46.1 37.1 - 48.7 fL [facility] WBC 5.2 4.0 - 9.8 K/uL [facility] MCH 29.8 27.2 - 32.6 pg [facility] HEMATOCRIT 40.9 35.5 - 44.0 % [facility] PLATELETS 293 140 - 350 K/uL [facility] RBC 4.59 3.90 - 4.90 M/uL [facility] MCHC 33.5 31.5 - 35.5 % [facility] RDW 14.5 11.5 - 14.5 % [facility] MCV 89.1 82.0 - 99.0 fL [facility] MPV 9.6 9.3 - 12.4 fL [facility] BASOPHILS 1 0 - 2 % [facility] BASOPHILS ABSOLUTE 0.05 0.00 - 0.20 K/uL [facility] MONOCYTES 14(H) 3 - 13 % [facility] MONOCYTE ABSOLUTE 0.71 0.10 - 1.30 K/uL [facility] NEUTROPHILS 43(L) 45 - 70 % [facility] NEUTROPHIL ABSOLUTE 2.23 1.90 - 7.00 K/uL [facility] EOSINOPHILS 4 0 - 7 % [facility] EOSINOPHIL ABSOLUTE 0.19 0.00 - 0.70 K/uL [facility] LYMPHOCYTES 38 16 - 45 % [facility] LYMPHOCYTE ABSOLUTE 1.98 0.70 - 4.50 K/uL [facility] Blood specimen (specimen) 04/08/2008 2:34 PM CDT 04/08/2008 2:34 PM CDT us Bro Trejo MD HEMATOLOGY ORDERABLES Edited INTERFACE SYSTEM Refer to clinic/hospital department [facility] CLIA# [id number] [address] [address] documented in this encounter Visit Diagnoses Diagnosis Carcinoma in situ of breast documented in this encounter Care Teams Fish Egg Packer Relationship Specialty Start Date End Date Kimberley Rodriguez MD PCP - General 10/14/09 documented as of this encounter
--- OUTSIDE RECORDS SUMMARY | 2025-04-11 22:20 | XMS_ITS | Encounter Summary ---
Author Organization [facility] Address [address] [place] [address] Care Team Providers Care Web Site Designer Name Role Phone Kimberley Rodriguez MD Primary Care Provider [phone] Encounter Details Date Type Department Care Team (Late st Contact Info) Description 10/05/2008 Outpatient Historical [facility] Mikal Murray MD NO ADDRESS ON FILE Carcinoma in Situ of Breast Social History Tobacco Use Types Packs/Day Years Used Date Smoking Tobacco: Never Assessed Comments Unknown Sex and Gender Information Value Date Recorded Sex Assigned at Not on file Legal Sex Female 5:[address] Gender Identity Not on file Sexual Orientation Not on file documented as of this encounter Plan of Treatment Not on file documented as of this encounter Procedures Procedure Name Priority Date/Time Associated Diagnosis Comments US HEAD NECK TISSUES Timed Study 10/05/2008 3:[address] documented in this encounter Results * US NECK TISSUES (10/05/2008 3:[address]ER) Anatomical Region Laterality Modality Head Other 10/05/2008 3:[address] Narrative 10/05/2008 4:[address] [address] Admit Date: 10/05/2008 [place] Sex: F Admit Prov: MIKAL MURRAY Date: 1955 Primary Care Prov: CMRN: [id number] Room: [facility] SSN: [facility] Ordering Prov: N/A Accession Number: [id number] Interpretation ULTRASOUND OF THE THYROID GLAND, 10/05/2008 Clinical History: 233.0, carcinoma. Sagittal and transverse real-time examination reveals the right thyroid lobe to measure 4.7 x 1.7 x 1.9 cm in size and the left thyroid lobe to measure 5.2 x 1.8 x 1.5 cm in size. A few tiny cysts a few millimeters in size are noted in the left lobe. On the right, there are 3 small nodules. The largest nodule is in the mid to lower portion of the right lobe and is of mixed echogenicity measuring 1.0 x 0.6 x 0.6 cm in size. It has both cystic and solid components and is sharply defined. There is internal vascularity but no calcification. In the mid to upper portion of the right lobe, there is a cystic nodule measuring 0.6 x 0.5 x 0.3 cm in size. It does not contain internal vascularity or calcification. Finally, in the lower pole of the right lobe, there is a cystic nodule with a small peripheral calcification measuring 0.6 x 0.4 x 0.6 cm in size. There is no internal vascularity. The nodule is sharply defined. There is no evidence for cervical lymph node enlargement. The isthmus is about 4 mm in thickness. Overall, the findings are consistent with a mild multinodular goiter. Conclusion: Mild multinodular goiter with the largest nodule measuring only 1 cm in size on the right. . PRELIMINARY REPORT - Pending Final Review Dictated by: RAJINDER GALEANO 10/05/2008 15:14 Transcribed: 10/05/2008 16:19 AMK Procedure Note Provider, Historical - 10/05/[facility] [address], [place] [address] Admit Date: 10/05/2008 [place] CAL[place] Sex: F Admit Prov: MIKAL MURRAY Date: 1955 Primary Care Prov: CMRN: [id number] Room: [facility] SSN: [facility] Ordering Prov: N/A Interpretation ULTRASOUND OF THE THYROID GLAND, 10/05/2008 Clinical History: 233.0, carcinoma. Sagittal and transverse real-time examination reveals the rightthyroid lobe to measure 4.7 x 1.7 x 1.9 cm in size and the left thyroid lobeto measure 5.2 x 1.8 x 1.5 cm in size. A few tiny cysts a fewmillimeters in size are noted in the left lobe. On the right, there are 3 smallnodules. The largest nodule is in the mid to lower portion of the right lobeand is of mixed echogenicity measuring 1.0 x 0.6 x 0.6 cm in size. It hasboth cystic and solid components and is sharply defined. There isinternal vascularity but no calcification. In the mid to upper portion of the right lobe, there is a cysticnodule measuring 0.6 x 0.5 x 0.3 cm in size. It does not contain internal vascularity or calcification. Finally, in the lower pole of the right lobe, there is a cysticnodule with a small peripheral calcification measuring 0.6 x 0.4 x 0.6 cm insize. There is no internal vascularity. The nodule is sharply defined. There is no evidence for cervical lymph node enlargement. The isthmusis about 4 mm in thickness. Overall, the findings are consistent with amild multinodular goiter. Conclusion: Mild multinodular goiter with the largest nodule measuring only 1 cmin size on the right. . PRELIMINARY REPORT - Pending Final Review Dictated by: RAJINDER GALEANO 10/05/2008 15:14 Transcribed: 10/05/2008 16:19 AMK us Mikal Murray MD US ORDERABLES Final Result documented in this encounter Visit Diagnoses Diagnosis Carcinoma in situ of breast documented in this encounter Care Teams Web Site Designer Relationship Specialty Start Date End Date Kimberley Rodriguez MD PCP - General 10/14/09 documented as of this encounter
--- OUTSIDE RECORDS SUMMARY | 2025-04-11 22:20 | XMS_ITS | Data Portability ---
Author Organization [facility] [place] Address [address] [place] [address] Care Team Providers Care Ribbon Sweatband Operator Name Role Phone KATHIATIFF LOPEZMARK Primary Care Provider [phone] Assessment Encounter Date Assessment Date Assessment LastModified by Organization Details LastModified Time 09/29/2021 09/29/2021 Annual gynecological exam performed. Patient will come back in a year unless there are new symptoms. Not available 09/29/2021 15:00:36 Plan of Treatment Reminders Order Date Submit Date Provider Last Modified By Organization Details Last Modified Time Details Appointments None record ed. Lab None record ed. Referral None record ed. Procedures None record ed. Surgeries None record ed. Imaging None record ed. Medication Orders None record ed. Patient TargetsNo targets recorded. Patient InstructionsNo instructions recorded. Reason for Referral None Reported. Problems Name Problem SNOMED Code Status Onset Date Resolution Date Notes Provider Name and Address Organization Details Recorded Time SNOMED CT Concept Completed 201609/29/2021 Encntr for central melt specialist exam (general) (routine) w/o abn findings; Recorded Elsewhere : No Locati on: [facility] So urce: EHR Chron ic: N Practic e ID: [id number] Bill able Time: 11:00:00 AM Yari garza [facility] 12:05:48 Uterine leiomyom a [id number] Completed 201509/29/2021 Leiomyoma of uterus, unspecifi ed;Record ed Elsewhere : No Locati on: [facility] So urce: EHR Chron ic: N Practic e ID: [id number] Bill able Time: 03:30:00 PM Yari Naranjo [facility] 1 12:05:[address] Concept Completed 201509/29/2021 Encntr for general adult medical exam w/o abnormal findings; Recorded Elsewhere : No Locati on: [facility] So urce: EHR Chron ic: N Practic e ID: [id number] Bill able Time: 02:30:00 PM Yari Naranjo [facility] 1 12:05:47 Hypertro phy of uterus [id number] Completed 201509/29/2021 Hypertrop hy of uterus;Re corded Elsewhere : No Locati on: [facility] So urce: EHR Chron ic: N Practic e ID: [id number] Bill able Time: 03:00:00 PM [facility] 1 12:05:43 Screenin g for malignan t neoplasm of rectum Completed 201809/29/2021 Encounter for screening for malignant neoplasm of rectum;Re corded Elsewhere : No Locati on: [facility] So urce: EHR Chron ic: N Practic e ID: [id number] Bill able Time: 11:30:00 AM [facility] 1 12:05:45 Female genital organ symptoms [id number] Completed 201009/29/2021 Unspecifi ed symptom associate d with female genital organs;Pr actice ID: [id number] [facility] 1 12:05:41 Problem Notes None recorded. Procedures Surgical History Date Name Laterality Status Provider Name and Address Organization Details Recorded Time 1 completed Yari [facility] 09/29/2021 15:01:14 1 Date of Last Colonoscopy completed [facility] 09/29/2021 15:01:14 0 Most Recent Bone Density completed [facility] 09/29/2021 15:01:14 9 Date of Last Pap Smear completed [facility] 09/29/2021 15:04:59 9 Date of Last Mammogram completed [facility] 09/29/2021 15:05:30 9 completed [facility] 09/29/2021 15:05:39 Mastectomy completed [facility] 09/29/2021 15:01:27 Imaging Results None recorded. Procedure Notes None recorded. Medical Equipment None Reported. Allergies Allergen ID Allergen Name Allergen Category Reaction Reaction Severity Criticality Documentation Date Start Date Code Code System Note Provider Name and Address Organization Details Recorded Time 63885 latex environme nt,medica tion rash Not available Not available 10/29/2020 47208 91 RxNorm React ion: Rash; Comme nt: [facility]at [facility]; Not Available [facility] 0 14:18:01 49604 Product containin g penicilli n (product) medicatio n rash Not available Not available 10/29/2020 64111 8001 SNOMED React ion: Rash; Comme nt: Locat [facility]: [facility]; Not Available [facility] 0 14:18:01 Medications Name Sig Start Date Stop Date Status Note LastModified by Organization Details LastModified Time metformin 500 mg tablet 09/29 completed Not Available Not Available Not Available azithromy rocael 250 mg tablet 09/29 completed Not Available Not Available Not Available hydrocodo ne 5 mg-acetam inophen 325 mg tablet active Not Available Not Available Not Available Advair Diskus 100 mcg-50 mcg/dose powder for inhalatio n inhale 1 puff by inhalati on route 2 times every day in the morning and evening approxim ately 12 hours apart 02/14 completed Prescrib ed Elsewher e: Yes Loca tion: Jose LFormerly [facility] M odify By: dina stanford Encou nter DateTime : 02/15/20 16 02:30:00 PM Not Available Not Available Not Available phentermi ne 37.5 mg tablet 09/29 completed Not Available Not Available Not Available sulfameth oxazole 800 mg-trimet hoprim 160 mg tablet 09/29 completed Not Available Not Available Not Available alprazola m 0.5 mg tablet active Not Available Not Available Not Available Prozac 20 mg capsule take 1 capsule by oral route every day in the morning 05/03 completed Prescrib ed Elsewher e: No Locat ion: [facility] odify By: renzo rainesunter DateTime : 02/15/20 16 02:30:00 PM Not Available Not Available Not Available metformin 1,000 mg tablet take 1 tablet by oral route 2 times every day with morning and evening meals 09/29 completed Prescrib ed Elsewher e: Yes Loca tion: Vandanakimberly beto [facility] odify By: renzo rainesunter DateTime : 05/03/20 17 11:00:00 AM Not Available Not Available Not Available losartan 25 mg tablet take 1 tablet by oral route every day 09/29 completed Prescrib ed Elsewher e: Yes Loca tion: Vandanasowmyakarina pérez [facility] odify By: renzo rainesunter DateTime : 02/15/20 16 02:30:00 PM Not Available Not Available Not Available Advair Diskus 250 mcg-50 mcg/dose powder for inhalatio n inhale 1 puff by inhalati on route 2 times every day in the morning and evening approxim ately 12 hours apart active Prescrib ed Elsewher e: Yes Loca tion: Vandanasowmyakarina pérez [facility] odify By: renzo rainesunter DateTime : 05/03/20 17 11:00:00 AM Not Available Not Available Not Available Advair Diskus 500 mcg-50 mcg/dose powder for inhalatio n active Not Available Not Available Not Available verapamil ER (PM) 100 mg capsule 24hr pellet CT,ext.re lease take 1 capsule by oral route every day at bedtime 09/29 completed Prescrib ed Elsewher e: Yes Loca tion: [facility] M odify By: renzo boyd DateTime : 02/15/20 16 02:30:00 PM Not Available Not Available Not Available verapamil ER (SR) 240 mg tablet,ex tended release take 1.5 tablets daily = 360 active Not Available Not Available No t Available phentermi ne 37.5 mg capsule 09/29 completed Not Available Not Available Not Available ezetimibe 10 mg tablet take 1 tablet by oral route every day active Not Available Not Available No t Available cyclobenz aprine 5 mg tablet 09/29 completed Not Available Not Available Not Available losartan 100 mg-hydroc hlorothia zide 12.5 mg tablet active Not Available Not Available No t Available ProAir HFA 90 mcg/actua tion aerosol inhaler inhale 2 puff by inhalati on route every 4 - 6 hours as needed active Not Available Not Available No t Available Januvia 100 mg tablet 09/29 completed Not Available Not Available Not Available Symbicort 160 mcg-4.5 mcg/actua tion HFA aerosol inhaler inhale 2 puff by inhalati on route 2 times every day in the morning and evening 05/03 completed Prescrib ed Best e: No Locat ion: [facility] odify By: renzo boyd DateTime : 02/15/20 16 02:30:00 PM Not Available Not Available Not Available Sutab 1.479-0.1 88-0.225 gram tablet 09/29 completed Not Available Not Available Not Available Vitals Date Recorded Systolic blood pressure Diastolic blood pressure Provider Name and Address Organization Details Last Updated DateTime 09/29/2021 122 mm[Hg] 82 mm[Hg] Dena Camejo [facility]- [address], [place], [address], [place] - [facility] 09/29/2021 15:18:46 Date Recorded Body height Body mass index (BMI) Body weight Provider Name and Address Organization Details Last Updated DateTime 09/29/2021 165.1 cm 29.3 kg/m2 04479.26 g Yari Naranjo [facility] 09/29/2021 15:00:56 Social History Question Answer Notes LastModified by Organizat ion Details LastModified Time Do You Have An Advance Directive? No Information n ot available 09/29/2021 How Many Years Have You Consumed Alcohol? 40 Information not available 09/29/2021 Are You Blind Or Do You Have Difficulty Seeing? No Information not available 09/29/2021 What Is Your Level Of Caffeine Consumption? Moderate Information not available 09/29/2021 How Much Tobacco Do You Chew? None Information not available 09/29/2021 In The 14 Days Before Symptom Onset, Have You Had Close Contact With A Laboratory-confirme d COVID-19 While That Case Was Ill? No Information n ot available 09/29/2021 In The 14 Days Before Symptom Onset, Have You Had Close Contact With A Person Who Is Under Investigation For COVID-19 While That Person Was Ill? No Information not available 09/29/2021 Have You Been To An Area Known To Be High Risk For COVID-19? No Information not available 09/29/2021 Are You Deaf Or Do You Have Serious Difficulty Hearing? No Information not available 09/29/2021 What Type Of Diet Are You Following? REGULAR Information n ot available 09/29/2021 What Is The Highest Grade Or Level Of School You Have Completed Or The Highest Degree You Have Received? [id number] Information not available 09/29/2021 Are There Any Guns Present In Your Home? No Information not available 09/29/2021 Do You Use Protection During Sex? No Information not available 09/29/2021 Do You Use Your Seat Belt Or Car Seat Routinely? Yes Information not available 09/29/2021 Do You Have Smoke And Carbon Monoxide Detectors In Your Home? Yes Information not available 09/29/2021 How Much Tobacco Do You Smoke? No Information not available 09/29/2021 Do You Use Sunscreen Routinely? Yes Information not available 09/29/2021 Have You Used IV Drugs? No Information not available 09/29/2021 Sex: Unknown Functional Status Question Answer Note LastModified by Organizat ion Details LastModified Time Do you use any illicit or recreational drugs? No Information not available 09/29/2021 What is your level of alcohol consumption? Occasional Information not available 09/29/2021 Are you able to walk? 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 Moderate Information not available 09/29/2021 Mental Status Question Answer Note LastModified by Organization D etails LastModified Time Do you feel stressed (tense, restless, nervous, or anxious, or unable to sleep at night)? [id number] Information not available 09/29/2021 Family History Relationship Description Onset Age of this Age Resolved Age Notes LastModified by Organization Details LastModified Time Mother Malignant tumor of breast Not available 2020 14:48:17 Sister Family history of malignant neoplasm of ovary [email or web address] Not available 15:24:42 Notes:Genetic screen complet ed--Negative per pt Medical History Condition Response Arthritis Y Asthma Y Breast Cancer Y High Cholesterol Y Diabetes Y Eczema Y Hypertension Y Gynecological History Statement/Question Response Date of Last Mammogram 05/22/2019 N On BCP's at Conception? N STIs/STDs N Was last menstrual period normal N HPV Vaccine N Duration of Flow (days) 5 11/12/2018 Current Control Method None Age at First Child 1987 If Post Menopausal, Age at Menopause 55 Date of control 06/26/1998 Date of Last Colonoscopy 04/26/2021 Frequency of Cycle (Q days) 28 Most Recent Bone Density 04/26/2020 Sexually Active? N Age of first menstrual cycle 14 Date of Last Pap Smear 05/22/2019 Sexual Problems? N LMP Unknown Desired Control Method Other 04/26/2021 N Obstetrics History GPAL:G 2 P 0 0 1 1 Type Value Spontaneous 1 Living 1 Total 2 Past Encounters Encounter ID Performer Location Encounter Start Date Encounter Closed Date Diagnosis/Indication Diagnosis SNOMED-CT Code Diagnosis ICD10 Code Diagnosis Note [id number] Dena Camejo [facility] [address] [address] 09/29/2021 14:31:12 09/29/2021 16:27:11 Gynecologic examination 53058388 Z01.419 Take Calcium with Vitamin D 12-1500mg daily. Do monthly self breast exams. It is advised to get annual flu shot in the fall and she could obtain at [facility] or [facility] care clinic. If you haven't received the Tdap vaccine in the last 10 years you should obtain one as well. Have mammogram yearly, bone density every 2-3 years and colonoscop y every 5-10 years depending on findings and history. Engage in daily exercise of low impact aerobic exercise 45-60 minutes 4-5 times weekly. Avoid tobacco and illicit drugs as well as using moderation with alcohol intake less than 1-2 8 oz beverages daily. This lifestyle behavior pattern will lead to less health conditions and longer life span. If BMI greater than 25 weight watchers or dietary consult advised. Questions have been answered. Patient appears to understand instructio ns, but if you have any further questions call or respond to this email USPSTF recommends against screening for cervical cancer in women older than 65yo who have had adequate prior screening & are not otherwise at high risk for cervical cancer. Monogamous Declinedst d screenColo n & dexa managed PCPMammo orderedD/C pap/hpv unless otherwise indicated per asccpPCP visits yearly recommende dMammo yearlyGYN visit q2yrs or prn if issues Health Concerns Section Related Observation LastModified by Organization Detai ls LastModified Time None Recorded Concern Status LastModified by Organization Details LastModified Time None Recorded Advance Directives Directive N: Payers Encounter Date Sequence Insurance Name Policy Number Policy Santos Covered Member ID Santos Member ID Guarantor Name 09/29/2021 1 [place] Dennis [id number] [place] Dennis 09/29/2021 2 Signicat [facility] Thien Dennis [id number] OI Virginia Dennis Notes Date Note Type Note Provider Name and Address Organization Details Recorded Time 09/29/2021 text/html 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 Post-MenopausalRe ported bypatient.Menopau opal Symptoms:no menopausal symptoms; normal vaginal lubrication Vaginal Bleeding:history of menopause having occurred; no history of post menopausal bleeding Urinary Symptoms:no hematuria; no incontinence; no nocturia; no urinary frequency Vulva:no genital lesion; no vulvar atrophy Vagina:normal vaginal discharge; no vaginal atrophy Breast:no breast lump; no nipple discharge; no breast pain Sexual Complaints:no sexual complaints Psychological Symptoms:no depression; no anxiety Preventive Measures:encourag e regular mammograms starting age 40; encourage self breast examination; encourage regular exercise; encourage no tobacco use; needs to schedule mammogram; history of recent colonoscopy; Dexa 2019 managedPCP Dena Camejo, [facility]- [address], [place], [address], [facility] 09/29/2021 15:25:46 OBGyn Episode Ob Episode Information Episode Created Date Number of Fetuses Patient Bloodtype Patient rh Status Prepregnancy Weight lbs Domestic Partner Domestic Partner Phone Father Name Card Game Operator Status 09/29/20 21 1 CLOSED Fetus Data First Name Last Name Admitted to NICU Weight (g) Sex Living Outcome Pediatric Complications Fetus ID Race Codes Race Delivery Type , Spontane ous [id number] Rigo Calculation Initial Rigo Date Initial Exam Date Initial Exam Provider Initial Ultrasound Date Last Menstrual Period Date Ultra Sound Weeks Gestation 0 Eighteen To Twenty Week Rigo Update Ultra Sound Date Fundal Height At Umbil Quickening Date Ultra Sound Latest Weeks Gestation Final Rigo Confirmed By Final Rigo Confirmed Date Final Rigo Date Ultra Sound Latest Days Gestation 0 0 Menstrual History Last Menstrual Date Menses Monthly On Bcp Conception Prior Menses Frequency Hcg Plus Date Menarche Onset Age Delivery Information Delivery Date Delivery Type Labor Anesthesia Weeks Gestation Incision Type Labor Labor Length Hrs Delivered By Post Complications Tubal Sterilization Discharge Date Comments 8 Discharge Information Feeding Method Contraceptive Method Maternal HG B and HCT Levels Ob Episode Information Episode Created Date Number of Fetuses Patient Bloodtype Patient rh Status Prepregnancy Weight lbs Domestic Partner Domestic Partner Phone Father Name Card Game Operator Status 09/29/20 21 1 CLOSED Fetus Data First Name Last Name Admitted to NICU Weight (g) Sex Living Outcome Pediatric Complications Fetus ID Race Codes Race Delivery Type [id number] Primary Rigo Calculation Initial Rigo Date Initial Exam Date Initial Exam Provider Initial Ultrasound Date Last Menstrual Period Date Ultra Sound Weeks Gestation 0 Eighteen To Twenty Week Rigo Update Ultra Sound Date Fundal Height At Umbil Quickening Date Ultra Sound Latest Weeks Gestation Final Rigo Confirmed By Final Rigo Confirmed Date Final Rigo Date Ultra Sound Latest Days Gestation 0 0 Menstrual History Last Menstrual Date Menses Monthly On Bcp Conception Prior Menses Frequency Hcg Plus Date Menarche Onset Age Delivery Information Delivery Date Delivery Type Labor Anesthesia Weeks Gestation Incision Type Labor Labor Length Hrs Delivered By Post Complications Tubal Sterilization Discharge Date Comments 9 Discharge Information Feeding Method Contraceptive Method Maternal HG B and HCT Levels
--- NOTE | 2025-04-12 00:43 | PC.NURSE ---
0004 Patient comes to desk and states that she no longer want to wait and am going to leave. Patient was informed of risks of leaving before being evaluated by a provider and benefits of staying for evaluation. Patient verbalized understanding and ambulated out of the ED with a steady gait with her cane. Patient had belongings in hand. Patient marked as left without being seen, triaged.
--- OUTSIDE RECORDS SUMMARY | 2025-04-12 02:58 | XMS_ITS | Continuity of Care Document ---
Author Name [facility] Organization [facility] Care Team Providers Care Mortgage Processing Manager Name Role Phone [facility] Unavailable Unavailable Medications Combined list of outpatient [...] POTASSIUM Drug allergy (disorder) Unknown active 0 [facility] Gene ARIZMENDI ([facility]) Immunizations Combined list of available immunizations from the Department of Defense and Veterans Affairs facilities. Immunization Series Date Given Administered By Site Reaction Lot Number CVX Code Drug Acid Correction Hand Status Comments Source influenza virus vaccine, inactivated 2021 zzMarti Arm [id number] Seqirus complet ed influenza virus vaccine, inactivat ed 11/21/21 Given Ambulat ory Pharmac y Influenza vaccine, quadrivalent, adjuvanted (Fluad) 1 2021 Unknown, Provider [id number] Seqirus (SEQ) complet ed Influenza vaccine, quadrival ent, adjuvante d (Fluad) DoD Procedures Combined list of: 1) Procedures from Department of [facility] Affairs facilities [facility], not all OR non-surgical procedures are included; 2) All procedures [...] at Department of Defense and Veterans Affairs (OR).VA Functional Casey Measurement (FIM) Scale: 1 = Total Assistance (Subject = 0% +), 2 = Maximal Assistance (Subject = 25% +), 3 = Moderate Assistance (Subject = 50% +), 4 = Minimal Assistance (Subject = 75% +), 5 = Supervision, 6 = Modified Casey (Device), 7 = Complete Casey (Timely, Safely). Assessment Date/Time Source Assessment Type Assessment Skill Assessment Score Assessment Details No data available for this section
--- OUTSIDE RECORDS SUMMARY | 2025-04-12 02:58 | XMS_ITS | Encounter Summary ---
Author Organization [facility] Address [address] [place] [address] Care Team Providers Care Heel Sprayer Name Role Phone Kimberley Rodriguez MD Primary Care Provider [phone] Encounter Details Date Type Department Care Team (Latest Contact Info) Description 10/23/2008 Outpatient Historical HIS [facility] Mikal Hayes MD NO ADDRESS ON FILE Malignant Neoplasm of Breast (Female), Unspecified Site (CMS/HCC) Social History Tobacco Use Types Packs/Day Years Used Date Smoking Tobacco: Never Assessed Comments Unknown Sex and Gender Information Value Date Recorded Sex Assigned at Not on file Legal Sex Female 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 Gender Identity Not on file Sexual Orientation Not on file documented as of this encounter Plan of Treatment Not on file documented as of this encounter Procedures Procedure Name Priority Date/Time Associated Diagnosis Comments MAMMO DIAGNOSTIC UNI RIGHT W OR WO CAD Routine 10/23/2008 3:08 PM RESERVOIR CARETAKER documented in this encounter Results * MAMMO DIGITAL DIAG UNI RIGHT (10/23/2008 3:08 PM RESERVOIR CARETAKER) Anatomical Region Laterality Modality Breast Right Other 10/23/2008 3:08 PM RESERVOIR CARETAKER Narrative 03/11/2009 4:58 PM CDT [facility] [address], [place] [address] Admit Date: 10/23/2008 VIR[place] CALVIN Sex: F Admit Prov: MIKAL MURRAY Date: 1955 Primary Care Prov: CMRN: [id number] Room: NANYLisette SSN: IMAGING SERVICES Ordering Prov: MIKAL MURRAY Accession Number: [id number] Addendum Despite multiple attempts, old films cannot [...] AMK Procedure Note Munira Mathur - 03/11/2009 [facility] [address], [place] [address] Admit Date: 10/23/2008 VIR[place] CALVIN Sex: F Admit Prov: MIKAL MURRAY Date: 1955 Primary Care Prov: CMRN: [id number] Room: TARAA SSN: IMAGING SERVICES Ordering Prov: [...] site documented in this encounter Care Teams Heel Sprayer Relationship Specialty Start Date End Date Kimberley Rodriguez MD PCP - General 10/14/09 documented as of this encounter
--- OUTSIDE RECORDS SUMMARY | 2025-04-12 02:58 | XMS_ITS | Clinical Summary ---
Author Organization [facility] 8 [facility] Address [address] [place] [address] Care Team Providers Care Grab Setter Name Role Phone Mike Boyd MD Unavailable [phone] Agustín Glasgow MD Primary Care Provider Allergies Active Allergy Reactions Criticality Noted Date Comments Codeine Unknown High 05/04/2010 Latex Rash,Unknown 11/30/2009 Reaction: Rash, Oqzmgdn-Dis-Uhy Reductase Inhibitors Muscle pain Medium 06/19/2024 Sulfa [...] 03/2024 Assessment & Plan (09/16/2024 8:58 AM STAY CUTTER): A(n) yearly Medicare Annual Wellness Visit has [...] Type Department Care Team Description 04/07/[address] [facility] Accountable Care Organization [address] [place] [address] Krista Quiñonez MA Chart Review (Med adherence) 03/18/2025 Results Follow-Up [facility] Medical Group Primary Care at [address] [phone] Agustín Glasgow MD CBC with auto differential, Comprehensive metabolic panel, Hemoglobin A1c, Additional followed-up results: 5 03/17/2025 9:48 AM CDT - 03/17/2025 11:59 PM CDT Hospital Encounter [address] [address] Hypertension associated with diabetes (HCC); Vitamin D insufficiency Discharge Disposition: Discharge to home or self care 03/17/2025 9:[address] [facility] Medical Group Outpatient Lab at [address] [phone] 03/17/2025 9:15 AM CDT Office Visit [facility] Primary Care at [address] [phone] Agustín Glasgow MD Hypertension associated with diabetes (HCC) (Primary Dx); Mixed hyperlipidemia; Mild intermittent asthma without complication; Chronic midline low back pain with right-sided sciatica; Vitamin D insufficiency 03/17/2025 ACO Clinical Pharmacist [address] [address] Yesenia Baugh [facility] 03/12/2025 ACO Clinical Pharmacist [address] [address] Yesenia Baugh, [facility] 03/10/[address] [address] Krista Quiñonez MA Chart Review (Med adherence) 03/10/[address] [facility] Medical [facility] at [place] [address] [facility] [address] [place] [phone] Sonya Gómez MA 03/09/2025 9:30 AM CDT - 03/09/2025 10:00 AM CDT Surgery [facility] [address] [place] [address] Margarito Blair, DO COLONOSCOPY 03/09/2025 9:14 AM CDT Anesthesia Event [address] [address] Anthony Couch MD Alexander, Jeffrey Michael, DO 03/09/2025 8:25 AM CDT - 03/09/2025 10:16 AM CDT Hospital Encounter [facility] 1 [place] [address] Margarito Blair, Discharge Disposition: Discharge to home or self care 03/09/[address] [facility] Medical Group Gastroenterology at [address] [place] [address] Sonya Gómez MA 01/27/[address] [facility] Gastroenterology at [address] [place] [address] Bonnie Bellamy Prep Instructions from [...] on file Legal Sex Female 12:20 AM STAY CUTTER Gender Identity Female 10/18/2021 6:33 AM STAY CUTTER Sexual Orientation Straight 10/18/2021 6: 33 AM STAY CUTTER Obstetrics History Para Term AB IAB SAB [...] Discontinued 03/09/2025 Medical Devices Implanted Type Area Computer Systems Information Director Device Identifier Shelf Expiration Date Model / Serial / Lot [employer] Armbrust 52mm Sector Hip Shell Acetabular Gription Sterile Latex Free [id number] - [id number] Implanted:Qty: 1 on 10/08/2023 by Mike Body MD at [facility] Left: Hip [employer] 07/12/2033 [id number] / / [id number] [employer] Armbrust 52mm 36mm Hip Neutral Liner Acetabular Altrx Sterile Latex Free [id number] - [id number] Implanted:Qty: 1 on 10/08/2023 by Mike Boyd MD at [facility] Left: Hip [employer] 06/11/2028 [id number] / / [id number] [employer] Actis Collared Hip /14 4 Standard Offset Stem Femoral [id number] - [id number] Implanted:Qty: 1 on 10/08/2023 by Mike Boyd MD at [facility] Left: Hip [employer] 11/11/2032 [id number] / / [id number] [employer] Articul/Zeeshan 36mm Cementless Hip +5mm 12/14 Taper Head Femoral Latex Free [id number] - [id number] Implanted:Qty: 1 on 10/08/2023 by Mike Boyd MD at [facility] Left: Hip [employer] 06/11/2028 [id number] / / [id number] Procedures Procedure Name Priority Date/Time Associated Diagnosis [...] 06/23/2024 8:10 AM CDT Screening for osteoporosis intermodal customer service (current) use of inhaled steroids SCREENING MAMMOGRAM [...] MD LAB BLOOD ORDERABLES Final Result CAROL [address] Department [place] [address] * Differential, auto (03/17/2025 9:48 AM CDT) Neutrophil abs 1.98 1.50 - 6.50 K/cumm Imm gran abs 0.01 0.00 - 0.10 K/cumm [facility] Lymphocyte abs 1.75 0.80 - 3.30 K/cumm [facility] Monocyte abs 0.47 0.20 - 0.80 K/cumm [facility] Eosinophil abs 0.33 0.00 - 0.50 K/cumm [facility] Basophil abs 0.06 0.00 - 0.10 K/cumm [facility] Neutrophil pct 43.1 % [facility] Comment: Interpretive Data Percent cell count reference ranges are not reported, since discordance with absolute values may lead to misinterpretation of CBC data. Current Interpretive Data was last revised on 2018. Imm gran pct 0.2 % [facility] Comment: Interpretive Data Percent cell count reference ranges are not reported, since discordance with absolute values may lead to misinterpretation of CBC data. Current Interpretive Data was last revised on 2018. Lymphocyte pct 38.0 % [facility] Comment: Interpretive Data Percent cell count reference ranges are not reported, since discordance with absolute values may lead to misinterpretation of CBC data. Current Interpretive Data was last revised on 2018. Monocyte pct 10.2 % [facility] Comment: Interpretive Data Percent cell count reference ranges are not reported, since discordance with absolute values may lead to misinterpretation of CBC data. Current Interpretive Data was last revised on 2018. Eosinophil pct 7.2 % [facility] Comment: Interpretive Data Percent cell count reference ranges are not reported, since discordance with absolute values may lead to misinterpretation of CBC data. Current Interpretive Data was last revised on 2018. Basophil pct 1.3 % [facility] Comment: Interpretive Data Percent cell count reference ranges are not reported, since discordance with absolute values may lead to misinterpretation of CBC data. Current Interpretive Data was last revised on 2018. Blood 03/17/2025 9:48 AM CDT 03/17/2025 5:23 PM CDT us Agustín Glasgow MD LAB BLOOD ORDERABLES Final Result [facility] [address] Department [place] [address] * Thyroid Function Clinch (03/17/2025 9:48 AM CDT) TSH 0.79 0.30 - 4.20 mcIUnit/mL Blood 03/17/2025 9:48 AM CDT 03/17/2025 5:23 PM CDT Agustín Glasgow MD LAB BLOOD ORDERABLES Final Result [facility] [address] [place] [address] * (ABNORMAL) CBC with auto differential (03/17/2025 9:48 AM CDT) [facility] WBC 4.60 3.80 - 9.90 K/cumm Hgb 13.6 11.9 - 15.5 g/dL [facility] Hct 43.3 35.6 - 45.5 % [facility] Plt 327 150 - 400 K/cumm [facility] MPV 10.1 9.1 - 12.3 fL [facility] RBC 4.56 3.90 - 5.20 M/cumm [facility] MCV 95.0 81.3 - 96.4 fL [facility] MCH 29.8 27.1 - 33.3 pg [facility] MCHC 31.4(L) 32.3 - 35.7 g/dL [facility] RDW CV 14.6 11.1 - 14.9 % [facility] CH RDW SD 50.6(H) 35.7 - 48.1 fL [facility] NRBC abs 0.00 0.00 - 0.01 K/cumm [facility] Blood 03/17/2025 9:48 AM CDT 03/17/2025 5:23 PM CDT Agustín Glasgow MD LAB BLOOD ORDERABLES Final Result [facility] [address] [place], [place] [id number] * Vitamin D 25 hydroxy (03/17/2025 9:48 AM CDT) Pathologist [facility] Vitamin D 25-OH 51 30 - 80 ng/mL Blood 03/17/2025 9:48 AM CDT 03/17/2025 5:23 PM CDT Agustín Glasgow MD LAB BLOOD ORDERABLES Final Result Performing Organization Address [facility] Phone Number CAROL [phone] [facility] [place] [address] * (ABNORMAL) Hemoglobin A1c (03/17/2025 9:48 AM CDT) Hgb A1C 5.9(H) 4.0 - 5.6 % Estimated Average Glucose 123 mg/dL [facility] Comment: The ADA recommends reporting an estimated Average Glucose (eAG) with all Hemoglobin A1c results using the equation derived from a study of 507 normal and diabetic adults. Minority populations were underrepresented and children were not included. (Diabetes Care 31:7661-9050, 2008). The eAG is not equivalent to a fasting glucose. Blood 03/17/2025 9:48 AM CDT 03/17/2025 5:23 PM CDT Agustín Glasgow MD LAB BLOOD ORDERABLES Final Result Performing Organization Address [facility] Phone Number CAROL [phone] [facility] [place] [address] * (ABNORMAL) Lipid panel (03/17/2025 9:48 AM [...] revised on 2024. Non-HDL Cholesterol 161 mg/dL [facility] Comment: Interpretive Data Ages < or [...] last revised on 2018. Chol/HDL ratio 3 [facility] Blood 03/17/2025 9:48 AM CDT 03/17/2025 5:23 PM CDT Agustín Glasgow MD LAB BLOOD ORDERABLES Final Result Performing Organization Address City/State/ZIP [place] Phone Number [facility] [phone] Department [place] [address] * Comprehensive metabolic panel (03/17/2025 9:48 AM CDT) Sodium 139 135 - 145 mmol/L Potassium, pl 4.0 3.3 - 4.9 mmol/L [facility] Chloride 104 97 - 110 mmol/L [facility] CO2 23 22 - 32 mmol/L [facility] Anion gap 12 2 - 15 mmol/L [facility] BUN 16 6 - 25 mg/dL [facility] Creatinine 0.63 0.60 - 1.10 mg/dL [facility] Glucose 95 70 - 199 mg/dL [facility] Comment: Interpretive Data Fasting glucose >/= [...] LAB BLOOD ORDERABLES Final Result CAROL [facility] [address] Department [place] [address] * POCT glucose (03/09/2025 9:10 AM CDT) Glucose, POC 99 70 - 199 mg/dL Blood 03/09/2025 9:10 AM CDT 03/09/2025 9:10 AM CDT us Margarito Blair DO LAB POCT ORDERABLES - DEVICE F inal Result CAROL [facility] [address] [facility] Department [place] [address] * Colonoscopy (03/09/2025 8:29 AM CDT) Anatomical Region Laterality Modality Other Narrative Procedure Note Margarito Blair, - 03/09/2025 8:[address] [facility] Patient Name: Virginia Calvin Procedure Date: 03/09/2025 8:29 AM Date of : 1955 Admit Type: Outpatient Age: 69 Gender: Female Attending MD: Margarito Blair D.O. Room: [facility] ENDOSCOPY ROOM 2 Note Status: Finalized Patient [...] under direct vision. The Pediatric Colonoscope [id number]-[id number] was introducedthrough the anus and advanced to [...] history of colonic polyps CPT copyright 2020 [employer]. All rights reserved. The codes documented in this report are preliminary and upon 3d animator reviewmay be revised to meet current compliance requirements. Recognized by the [employer] for promoting quality in endoscopy Margarito Blair DO ENDOSCOPY PROCEDURES Final Res ult * HM DIABETES EYE EXAM (07/15/2024 10:37 AM CDT) [facility] Provider HEALTH MAINTENANCE Final Result * Dexa [...] Ge Ordaz II, D.O. Agustín Glasgow MD [facility] DXA PROCEDURES Final Re sult * Screening [...] MICROBIOLOGY - GENERAL ORDERABLES Final Result CAROL [address] Department of Laboratories [place], [place] [phone] * Albumin Creatinine Ratio, Urine (06/12/2024 10:53 [...] Final Result Performing Organization Address City/State[place]IP [place] Phone Number CAROL [facility] [phone] Department [place] [address] from Last 3 Months or Most Recently Relevant to Health Maintenance Insurance [place] FOR LIFE AETNA MEDICARE FOR LIFE AETNA MEDICARE T MEDICARE FOR LIFE Advance Directives For more information, please contact: [phone] * Full Code (Latest Code Status on File) Date Activated Date Inactivated Comments 03/09/2025 8:29 AM 03/09/2025 2:16 PM * Full Code Date Activated Date Inactivated Comments 03/09/2025 8:29 AM 03/09/2025 8:29 AM * Full Code Date Activated Date Inactivated Comments 10/08/2023 4:38 PM 10/09/2023 6:31 PM Care Teams Grab Setter Relationship Specialty Start Date End Date Agustín Glasgow MD [facility] [place][note 2] [address] [place] [address] PCP - General Family Medicine 06/12/24 Mike Boyd MD [address] [place] [address] [address] [place] [address] Surgeon Orthopedic Surgery 10/09/23
--- OUTSIDE RECORDS SUMMARY | 2025-04-12 02:58 | XMS_ITS | Encounter Summary ---
Author Organization [facility] Address [address] [place] [address] Care Team Providers Care Project Facilitator Name Role Phone Kimberley Rodriguez MD Primary Care Provider [phone] Encounter Details Date Type Department Care Team [...] on file Legal Sex Female 5:34 AM PARTS TECHNICIAN Gender Identity Not on file Sexual Orientation Not on file documented as of this encounter Plan of Treatment Not on file documented as of this encounter Procedures Procedure Name Priority Date/Time Associated Diagnosis Comments TSH REFLEXIVE Stat 10/07/2008 4:00 PM PARTS TECHNICIAN CBC WITH DIFFERENTIAL Stat 10/07/2008 4:00 PM PARTS TECHNICIAN COMPREHENSIVE METABOLIC PANEL Stat 10/07/2008 4:00 PM PARTS TECHNICIAN documented in this encounter Results * (ABNORMAL) COMPREHENSIVE METABOLIC PANEL (10/07/2008 4:00 PM PARTS TECHNICIAN) CREATININE 0.61 0.51 - 0.95 mg/dL [facility] SODIUM 136 135 - 145 mmol/L [facility] ALT 21 0 - 31 U/L [facility] ALKALINE PHOSPHATASE 61 35 - 104 U/L [facility] BILIRUBIN TOTAL 0.4 0.2 - 1.0 mg/dL [facility] CO2 27 22 - 30 mmol/L [facility] TOTAL PROTEIN 8.2 6.3 - 8.6 g/dL [facility] POTASSIUM 3.5 3.5 - 4.9 mmol/L [facility] GLUCOSE 132(H) 65 - 99 mg/dL [facility] AST 25 12 - 32 U/L [facility] BUN 14 6 - 20 mg/dL [facility] CALCIUM 9.8 8.6 - 10.2 mg/dL [facility] CHLORIDE 99 96 - 108 mmol/L [facility] ALBUMIN 4.1 3.4 - 4.8 g/dL [facility] GFR, >60 >=60 mL/min/1. 7 sq meter [facility] GFR >60 >=60 mL/min/1. 7 sq meter [facility] Comment: Modification of Diet in Renal Disease (MDRD) study formula. Estimated GFR rate interpretative information for both Americans and non- Americans is available on the [facility] Intranet at: [email or web address] Select: Lab Policies and Procedures Select: Reference Ranges - GFR Blood specimen (specimen) 10/07/2008 4:00 PM PARTS TECHNICIAN 10/07/2008 4:03 PM PARTS TECHNICIAN us Bro Trejo MD CHEMISTRY ORDERABLES Edited INTERFACE SYSTEM Refer to clinic/hospital department [facility] CLIA# [id number] [address] [facility] [address] [place], [place] [address] * TSH REFLEXIVE (10/07/2008 4:00 PM PARTS TECHNICIAN) TSH 0.68 0.27 - 4.20 uU/mL [facility] Blood specimen (specimen) 10/07/2008 4:00 PM PARTS TECHNICIAN 10/07/2008 4:03 PM PARTS TECHNICIAN us Bro Trejo MD CHEMISTRY ORDERABLES Final R esult INTERFACE SYSTEM Refer to clinic/hospital department [facility] CLIA# [id number] [address] [place], [place] [address] * (ABNORMAL) CBC WITH DIFFERENTIAL (10/07/2008 4:00 PM PARTS TECHNICIAN) [facility] MCHC 34.0 31.5 - 35.5 % [facility] MCV 88.9 82.0 - 99.0 fL [facility] PLATELETS 269 140 - 350 K/uL [facility] HEMOGLOBIN 14.2 11.8 - 14.8 g/dL [facility] RDW 14.4 11.5 - 14.5 % [facility] WBC 4.6 4.0 - 9.8 K/uL [facility] MCH 30.2 27.2 - 32.6 pg [facility] MPV 10.2 9.3 - 12.4 fL [facility] HEMATOCRIT 41.8 35.5 - 44.0 % [facility] RDW-STDEV 46.8 37.1 - 48.7 fL [facility] RBC 4.70 3.90 - 4.90 M/uL [facility] NEUTROPHILS 38(L) 45 - 70 % [facility] NEUTROPHIL ABSOLUTE 1.72(L) 1.90 - 7.00 K/uL [facility] EOSINOPHILS 5 0 - 7 % [facility] EOSINOPHIL ABSOLUTE 0.24 0.00 - 0.70 K/uL [facility] LYMPHOCYTES 44 16 - 45 % [facility] LYMPHOCYTE ABSOLUTE 2.03 0.70 - 4.50 K/uL [facility] BASOPHILS 2 0 - 2 % [facility] BASOPHILS ABSOLUTE 0.07 0.00 - 0.20 K/uL [facility] MONOCYTES 11 3 - 13 % [facility] MONOCYTE ABSOLUTE 0.52 0.10 - 1.30 K/uL [facility] Blood specimen (specimen) 10/07/2008 4:00 PM PARTS TECHNICIAN 10/07/2008 4:03 PM PARTS TECHNICIAN us Bro Trejo MD HEMATOLOGY ORDERABLES Edited INTERFACE SYSTEM Refer to clinic/hospital department [facility] CLIA# [id number] [address] [place] [address] documented in this encounter Visit Diagnoses Diagnosis Malignant neoplasm of breast (female), unspecified site documented in this encounter Care Teams Project Facilitator Relationship Specialty Start Date End Date Kimberley Rodriguez MD PCP - General 10/14/09 documented as of this encounter
--- OUTSIDE RECORDS SUMMARY | 2025-04-12 02:58 | XMS_ITS | Continuity of Care Document ---
Author Organization [facility] Address [address] [facility] [address] [place] [address] Phone Care Team Providers Care Specialized Developer Name Role Phone Bladimir Roper MD Unavailable [...] Copied on Encounter OFFICE/OUTPATI ENT VISIT EST [facility], [address], [address], tel:[phone] [facility] [place] fu Back/spina l stenosis (chief complaint) Spinal stenosis of lumbar region 6 Jacquelin [address] [place], [place], [id number] . tel: [phone] OFFICE CONSULTATION [facility], [address] [place] [address], [address], tel:[phone] [facility] [place] Spinal stenosis of lumbar region 6 Zeshekhar [address] [place] [address], [id number] . tel: [phone] Referring Provider: Kimberley Rodriguez, [address] [place] [address] [place], [address]. tel:[phone] Family History Family Member Type Diagnosis Age At Onset Sister Problem (finding) Alive and well Payers Payer name Insurance type Covered green party ID Authorisaiah andrew(s) [facility] Choice/Choice Plus E2 OT [id number] [facility] Employees [id number] Social History Type Description Quantity Date [...]
--- OUTSIDE RECORDS SUMMARY | 2025-04-12 02:58 | XMS_ITS | Encounter Summary ---
Author Organization [facility] Address [address] [place] [address] Care Team Providers Care Systems Analysis Manager Name Role Phone Kimberley Rodriguez MD Primary Care Provider [phone] Encounter Details Date Type Department Care Team (Late st Contact Info) Description 10/05/2008 Outpatient Historical [facility] Mikal Murray MD NO ADDRESS ON FILE Carcinoma in Situ of Breast Social History Tobacco Use Types Packs/Day Years Used Date Smoking Tobacco: Never Assessed Comments Unknown Sex and Gender Information Value Date Recorded Sex Assigned at Not on file Legal Sex Female 5:34 AM POT RUNNER Gender Identity Not on file Sexual Orientation Not on file documented as of this encounter Plan of Treatment Not on file documented as of this encounter Procedures Procedure Name Priority Date/Time Associated Diagnosis Comments US HEAD NECK TISSUES Timed Study 10/05/2008 3:07 PM POT RUNNER documented in this encounter Results * US NECK TISSUES (10/05/2008 3:07 PM POT RUNNER) Anatomical Region Laterality Modality Head Other 10/05/2008 3:07 PM POT RUNNER Narrative 10/05/2008 4:21 PM POT RUNNER [address] [address] Admit Date: 10/05/2008 VIRGINIA CALVIN Sex: F Admit Prov: MIKAL MURRAY Date: 1955 Primary Care Prov: CMRN: [id number] Room: [facility] SSN: IMAGING SERVICES Ordering Prov: N/A Accession Number: [id number] Interpretation ULTRASOUND OF THE THYROID GLAND, 10/05/2008 [...] AMK Procedure Note Provider, Historical - 10/05/2008 [facility] [address] [place], [place] [address] Admit Date: 10/05/2008 VIRGINIA CALVIN Sex: F Admit Prov: MIKAL MURRAY Date: 1955 Primary Care Prov: CMRN: [id number] Room: [facility] SSN: IMAGING SERVICES Ordering Prov: N/A [...] breast documented in this encounter Care Teams Systems Analysis Manager Relationship Specialty Start Date End Date Kimberley Rodriguez MD PCP - General 10/14/09 documented as of this encounter
--- OUTSIDE RECORDS SUMMARY | 2025-04-12 02:58 | XMS_ITS | CONTINUITY OF CARE DOCUMENT ---
Author Name chapito uriarte Address Unknown Organization [facility] Address [address] [place] [address] Phone [phone] Care Team Providers Care Tank Truck Mechanic Name Role Phone Nadir QUINTANILLA, Rosalva Unavailable [phone] KATHIA QUINTANILLA, RUNDA Unavailable [phone] KATHIA QUINTANILLA, RUNDA Unavailable PROBLEMS Condition Status Date Provider Notes CHEST [...] In-person encounter Office Visit Rosalva Schmitz MD [facility] Cardiomegaly on CT , nl lv size and function on echo 11/28 - In-person encounter Office Visit Ros[facility] CHEST PAIN - ATYPICA L-02/19 RT STRESS NLCREST SYNDROMEHTN - 02/19 GEMMA US NEGHyperlipidemia intolerant of statinsCardiomegaly on CT , nl lv size and function on echo 11/28 - In-person encounter Office Visit Brayan Lee MD [facility] - In-person encounter Office Visit Brayan Lee MD [facility] CHEST PAIN - ATYPICAL-02/19 RT STRESS NLHTN-05/20 ECHO EF 69 VITAL SIGNS Date Observation Value Provider Body Mass Index (Ratio) 27.41 kg/m2 Zaki Schmitz MD blood pressure, diastolic 62 mm[Hg] Al dl Malone blood pressure, systolic 108 mm[Hg] [facility] oxygen saturation, oximetry 97 % [facility] respiratory rate E&M 15 /min [facility] pulse rate 56 /min [facility] weight E&M 175 [lb_av] [facility] height E&M 67 [in_i] [facility] Body Mass Index (Ratio) 28.82 kg/m2 Zaki Schmitz MD blood pressure, diastolic 66 mm[Hg] Al dl Kira blood pressure, systolic 124 mm[Hg] [facility] oxygen saturation, oximetry 98 % [facility] respiratory rate E&M 15 /min [facility] pulse rate 64 /min [facility] weight E&M 184 [lb_av] [facility] height E&M 67 [in_i] [facility] Body Mass Index (Ratio) 29.07 kg/m2 Kehinde [...] Zia eph [place] pulse rate 69 /min [facility], [facility] 96 % [facility] rate E&M 16 /min [facility] [place] weight E&M 182 [lb_av] [facility] blood pressure, diastolic 97 mm[Hg] Da tierra [...] cell distribution width, size density 48.1 fL [facility] - 1 immature granulocytes, percentage of total cells, blood 0.2 % [facility] - 1 nucleated red blood cells as percent of blood leukocytes 0.0 % [facility] - 1 red blood cell (erythrocyte) count, per high power field 0.0 10*3/UL [facility] - 1 eosinophils as percent of blood leukocytes 3.7 % [facility] - 1 neutrophils as percent of blood leukocytes 55.8 % [facility] - 1 Absolute Neutrophils 3.3 CELLS/UL [employer] 1.5 - 7.8 1 basophils as percent of blood leukocytes 1.2 % [facility] - 1 Absolute Basophils 0.1 CELLS/UL [employer] 0.0 - 0.2 1 monocytes as percent of blood leukocytes 8.3 % [facility] - 1 Absolute Monocytes 0.5 CELLS/UL [employer] 0.2 - 1.0 1 lymphocytes as percent of blood leukocytes 30.8 % [facility] - 1 Absolute Lymphocytes 1.8 CELLS/UL [employer] 0.9 - 3.9 1 mean platelet volume 10.3 (?) [facility] - 1 platelet count 343.0 THOUSAND/ [...] exercise, f requency, days per week yes [facility] alcohol use, average drinks per day none [facility] caffeine use, averag e drinks per day yes [facility] drug use none [facility] smoking, year quit 1976 Betsy Miryam madrid cigarette use yes [facility] smoking status Former smoker [facility] social history reviewed E&M revi ewed [...] Payer name Policy type / Coverage type [place] [employer] party ID [facility] Other [id number] [facility] [id number] Other [id number] [facility] Other [id number] ADVANCE DIRECTIVES Name Date DISCUSSED - [...] patien: O rders: R enal Artery Duplex (CPT-63210) C OMPREHENSIVE METABOLIC PANEL W/EGFR (84772) L IPID PANEL (7600) H EMOGLOBIN A1c (496) Brayan Lee MD new patien: H er updated medication list for this problem includes: Micardis Hct 80-25 Mg Tabs (Telmisartan-hctz) ..... One tab. daily Aspirin 81 Mg Tabs (Aspirin) ..... One tab. daily O rders: R enal Artery Duplex (CPT-10401) C OMPREHENSIVE METABOLIC PANEL W/EGFR (92502) L IPID PANEL (7600) H EMOGLOBIN A1c [...] Name Provider Procedure Notes S tatus SNOMED-CT: 551849675 [id number] Current Medications Documented Rosalva Schmitz MD completed SNOMED-CT: 41229756 Physical Exam, Performed: Pulse Exam of Foot Rosalva Schmitz MD completed SNOMED-CT: 158821857 251748 Current Medications Documented Rosalva Schmitz MD completed EKG Rosalva Schmitz MD completed
--- OUTSIDE RECORDS SUMMARY | 2025-04-12 02:58 | XMS_ITS | Referral Summary ---
Author Organization [facility] Address [address] [place] [address] Care Team Providers Care Online Publisher Name Role Phone Mike Boyd MD Unavailable [phone] Agustín Glasgow MD Primary Care Provider [phone] Encounters Date Type Department Care Team Description 04/07/[address] [address] Krista Quiñonez MA Chart Review (Med adherence) 03/18/2025 Results Follow-Up [facility] Primary Care at [address] [address] Agustín Glasgow MD CBC with auto differential, Comprehensive metabolic panel, Hemoglobin A1c, Additional followed-up results: 5 03/17/2025 9:48 AM CDT - 03/17/2025 11:59 PM CDT Hospital Encounter [address] [id number] Hypertension associated with diabetes (HCC); Vitamin D insufficiency Discharge Disposition: Discharge to home or self care 03/17/2025 ACO Clinical Pharmacist [address] [address] Yesenia Baugh RPh 03/17/2025 9:45 AM CDT Lab [facility] Lab at [address] [address] 03/17/2025 9:15 AM CDT Office Visit [facility] Primary Care at [address] [phone] Agustín Glasgow MD Hypertension associated with diabetes (HCC) (Primary Dx); Mixed hyperlipidemia; Mild intermittent asthma without complication; Chronic midline low back pain with right-sided sciatica; Vitamin D insufficiency 03/12/2025 ACO Clinical Pharmacist [address] [address] Yesenia Baugh RPh 03/10/[address] [address] Krista Quiñonez MA Chart Review (Med adherence) 03/10/2025 Telephone [facility] at [address], [place] [address] Sonya Gómez MA 03/09/2025 Telephone [facility] G[facility]enterology at [address], [place] [address] Sonya Gómez MA 03/09/2025 9:14 AM CDT Anesthesia Event [address] [address] Anthony Couch MD Alexander, Jeffrey Michael, DO 03/09/2025 9:30 AM CDT - 03/09/2025 10:00 AM CDT Surgery [address] [address] Margarito Blair DO COLONOSCOPY 03/09/2025 8:25 AM CDT - 03/09/2025 10:16 AM CDT Hospital Encounter [address] [address] Margarito Blair DO Discharge Disposition: Discharge to home or self care 01/27/2025 Telephone [facility] Gastroenterology at [address], [place] [address] Bonnie Bellamy Prep Instructions from Last 3 Months Allergies Active Allergy Reactions Criticality Noted Date Comments Codeine Unknown High 05/04/2010 Latex Rash,Unknown 11/30/2009 Reaction: Rash, Dmuefwa-Nuh-Mqp Reductase Inhibitors Muscle pain Medium 06/19/2024 Sulfa [...] 03/2024 Assessment & Plan (09/16/2024 8:58 AM PLATINUM AND PALLADIUM KETTLE TENDER): A(n) yearly Medicare Annual Wellness Visit has [...] on file Legal Sex Female 12:20 AM PLATINUM AND PALLADIUM KETTLE TENDER Gender Identity Female 10/18/2021 6:33 AM PLATINUM AND PALLADIUM KETTLE TENDER Sexual Orientation Straight 10/18/2021 6: 33 AM PLATINUM AND PALLADIUM KETTLE TENDER Last Filed Vital Signs Vital Sign Reading [...] on file Medical Devices Implanted Type Area Bag Filler Machine Operator Device Identifier Shelf Expiration Date Model / Serial / Lot [employer]uy [employer] Goodyear 52mm Sector Hip Shell Acetabular Gription Sterile Latex Free [id number] - [id number] Implanted:Qty: 1 on 10/08/2023 by Mike Boyd MD at [facility] Left: Hip [employer] 07/12/2033 [id number] / / [id number] [employer] Goodyear 52mm 36mm Hip Neutral Liner Acetabular Altrx Sterile Latex Free [id number] - [id number] Implanted:Qty: 1 on 10/08/2023 by Mike Boyd MD at [facility] Left: Hip [employer] 06/11/2028 [id number] / / [id number] [employer] Actis Collared Hip 10/25 4 Standard Offset Stem Femoral [id number] - [id number] Implanted:Qty: 1 on 10/08/2023 by Mike Boyd MD at [facility] Left: Hip [employer] 11/11/2032 [id number] / / [id number] [employer] Articul/Zeeshan 36mm Cementless Hip +5mm 10/25 Taper Head Femoral Latex Free [id number] - [id number] Implanted:Qty: 1 on 10/08/2023 by Mike Boyd MD at [facility] Left: Hip [employer] 06/11/2028 [id number] / / [id number] Procedures Procedure Name Priority Date/Time Associated Diagnosis [...] 06/23/2024 8:10 AM CDT Screening for osteoporosis alf (current) use of inhaled steroids SCREENING MAMMOGRAM [...] Glasgow MD LAB BLOOD ORDERABLES Final Result [facility] [address] [place] [address] * Differential, auto (03/17/2025 9:48 AM CDT) Neutrophil abs 1.98 1.50 - 6.50 K/cumm Imm gran abs 0.01 0.00 - 0.10 K/cumm [facility] Lymphocyte abs 1.75 0.80 - 3.30 K/cumm [facility] Monocyte abs 0.47 0.20 - 0.80 K/cumm [facility] Eosinophil abs 0.33 0.00 - 0.50 K/cumm [facility] Basophil abs 0.06 0.00 - 0.10 K/cumm [facility] Neutrophil pct 43.1 % [facility] Comment: Interpretive Data Percent cell count reference ranges are not reported, since discordance with absolute values may lead to misinterpretation of CBC data. Current Interpretive Data was last revised on 2018. Imm gran pct 0.2 % [facility] Comment: Interpretive Data Percent cell count reference ranges are not reported, since discordance with absolute values may lead to misinterpretation of CBC data. Current Interpretive Data was last revised on 2018. Lymphocyte pct 38.0 % [facility] Comment: Interpretive Data Percent cell count reference ranges are not reported, since discordance with absolute values may lead to misinterpretation of CBC data. Current Interpretive Data was last revised on 2018. Monocyte pct 10.2 % [facility] Comment: Interpretive Data Percent cell count reference ranges are not reported, since discordance with absolute values may lead to misinterpretation of CBC data. Current Interpretive Data was last revised on 2018. Eosinophil pct 7.2 % [facility] Comment: Interpretive Data Percent cell count reference ranges are not reported, since discordance with absolute values may lead to misinterpretation of CBC data. Current Interpretive Data was last revised on 2018. Basophil pct 1.3 % [facility] Comment: Interpretive Data Percent cell count reference ranges are not reported, since discordance with absolute values may lead to misinterpretation of CBC data. Current Interpretive Data was last revised on 2018. Blood 03/17/2025 9:48 AM CDT 03/17/2025 5:23 PM CDT Agustín Glasgow MD LAB BLOOD ORDERABLES Final Result Performing Organization Address City/[facility]/ZIP Co de Phone Number [facility] [address] [place], [place] [id number] * Thyroid Function [place] (03/17/2025 9:48 AM CDT) Pathologist [facility] TSH 0.79 0.30 - 4.20 mcIUnit/mL Blood 03/17/2025 9:48 AM CDT 03/17/2025 5:23 PM CDT Agustín Glasgow MD LAB BLOOD ORDERABLES Final Result Performing Organization Address [facility] Co de Phone Number [facility] [address] [place], [place] [phone] * (ABNORMAL) CBC with auto differential (03/17/2025 9:48 AM CDT) WBC 4.60 3.80 - 9.90 K/cumm Hgb 13.6 11.9 - 15.5 g/dL [facility] Hct 43.3 35.6 - 45.5 % [facility] Plt 327 150 - 400 K/cumm [facility] MPV 10.1 9.1 - 12.3 fL [facility] RBC 4.56 3.90 - 5.20 M/cumm [facility] MCV 95.0 81.3 - 96.4 fL [facility] MCH 29.8 27.1 - 33.3 pg [facility] MCHC 31.4(L) 32.3 - 35.7 g/dL [facility] RDW CV 14.6 11.1 - 14.9 % [facility] RDW SD 50.6(H) 35.7 - 48.1 fL [facility] NRBC abs 0.00 0.00 - 0.01 K/cumm [facility] Blood 03/17/2025 9:48 AM CDT 03/17/2025 5:23 PM CDT Result [facility] Agustín Glasgow MD LAB BLOOD ORDERABLES Final Result [facility] [address] [facility] [place] [address] * Vitamin D 25 hydroxy (03/17/2025 9:48 AM CDT) Vitamin D 25-OH 51 30 - 80 ng/mL Blood 03/17/2025 9:48 AM CDT 03/17/2025 5:23 PM CDT Result [facility] Agustín Glasgow MD LAB BLOOD ORDERABLES Final Result Performing Organization Address City/[facility] Co de Phone Number [facility] [address] [place] [address] * (ABNORMAL) Hemoglobin A1c (03/17/2025 9:48 AM CDT) Hgb A1C 5.9(H) 4.0 - 5.6 % Estimated Average Glucose 123 mg/dL [facility] Comment: The ADA recommends reporting an estimated Average Glucose (eAG) with all Hemoglobin A1c results using the equation derived from a study of 507 normal and diabetic adults. Minority populations were underrepresented and children were not included. (Diabetes Care 31:6993-1433, 2008). The eAG is not equivalent to a fasting glucose. Blood 03/17/2025 9:48 AM CDT 03/17/2025 5:23 PM CDT Result [facility] Agustín Glasgow MD LAB BLOOD ORDERABLES Final Result [facility] [address] [facility] Department of Laboratories [place] [phone] * (ABNORMAL) Lipid panel (03/17/2025 9:48 AM [...] revised on 2024. Non-HDL Cholesterol 161 mg/dL [facility] Comment: Interpretive Data Ages < or [...] MD LAB BLOOD ORDERABLES Final Result [facility] [address] [place] [address] * Comprehensive metabolic panel (03/17/2025 9:48 AM [...] LAB BLOOD ORDERABLES Final Result [facility] [address] [place] [address] * POCT glucose (03/09/2025 9:10 AM CDT) Glucose, POC 99 70 - 199 mg/dL Blood 03/09/2025 9:10 AM CDT 03/09/2025 9:10 AM CDT Margarito Blair DO LAB POCT ORDERABLES - DEVICE F inal Result [facility]) 1 [facility] [place] [address] * Colonoscopy (03/09/2025 8:29 AM CDT) Anatomical Region Laterality Modality Other Narrative Procedure Note Margarito Blair DO - 03/09/2025 8:29 AM CDT [facility] Patient Name: Virginia Calvin Procedure Date: 03/09/2025 8:29 AM Date of : 1955 Admit Type: Outpatient Age: 69 Gender: Female Attending MD: Margarito Blair D.O. Room: [facility] 2 Note Status: Finalized Patient [...] under direct vision. The Pediatric Colonoscope PCF-H190L [id number] was introducedthrough the anus and advanced to [...] history of colonic polyps CPT copyright 2020 [employer]. All rights reserved. The codes documented in this report are preliminary and upon technical implementation lead reviewmay be revised to meet current compliance requirements. Recognized by the [employer] for promoting quality [...] signed by: Ge Ordaz II, D.O. Result [facility] Agustín Glasgow MD [facility] DXA PROCEDURES Final Re sult * Screening [...] status post left mastectomy. Agustín Glasgow MD [facility] MAMMO PROCEDURES Final Result * Hepatitis C [...] GENERAL ORDERABLES Final Result Performing Organization Address [facility] Co de Phone Number [facility] [address] [place] [address] * Albumin Creatinine Ratio, Urine (06/12/2024 10:53 [...] URINE ORDERABLES Final Result Performing Organization Address [facility] Co de Phone Number [facility] [address] [place] [address] from Last 3 Months or Most Recently Relevant to Health Maintenance Insurance [employer] AETNA MEDICARE FOR LIFE AETNA MEDICARE AETNA MEDICARE FOR LIFE Advance Directives For more information, please contact: [phone] * Full Code (Latest Code Status on File) Date Activated Date Inactivated Comments 03/09/2025 8:29 AM 03/09/2025 2:16 PM * Full Code Date Activated Date Inactivated Comments 03/09/2025 8:29 AM 03/09/2025 8:29 AM * Full Code Date Activated Date Inactivated Comments 10/08/2023 4:38 PM 10/09/2023 6:31 PM Care Teams Online Publisher Relationship Specialty Start Date End Date Agustín Glasgow MD [address] [place] [address] PCP - General Family Medicine 06/12/24 Mike Boyd MD [address] [place] [address] [address] [place] [address] Surgeon Orthopedic Surgery 10/09/23
--- OUTSIDE RECORDS SUMMARY | 2025-04-12 02:58 | XMS_ITS | Encounter Summary ---
Author Organization [facility] [employer] Address 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 Gender Identity Not on file Sexual [...] CDT) CREATININE 0.76 0.51 - 0.95 mg/dL [facility] ALT 26 0 - 31 U/L [facility] SODIUM 137 135 - 145 mmol/L [facility] ALKALINE PHOSPHATASE 59 35 - 104 U/L [facility] CO2 30 22 - 30 mmol/L [facility] BILIRUBIN TOTAL 0.4 0.2 - 1.0 mg/dL [facility] POTASSIUM 4.2 3.5 - 4.9 mmol/L [facility] TOTAL PROTEIN 7.6 6.3 - 8.6 g/dL [facility] GLUCOSE 110(H) 65 - 99 mg/dL [facility] AST 31 12 - 32 U/L [facility] BUN 9 6 - 20 mg/dL [facility] CALCIUM 9.5 8.4 - 10.2 mg/dL [facility] ALBUMIN 4.1 3.4 - 4.8 g/dL [facility] CHLORIDE 98 96 - 108 mmol/L [facility] GFR, >60 >=60 mL/min/1. 7 sq meter [facility] GFR >60 >=60 mL/min/1. 7 sq meter [facility] Comment: ansiModification of Diet in Renal Disease (MDRD) study formula. Estimated GFR rate interpretative information for both Americans and non- Americans is available on the [facility] Intranet at: [email or web address] Select: Lab Policies and Procedures Select: Reference Ranges - GFR Blood specimen (specimen) 04/08/2008 2:34 PM CDT 04/08/2008 2:34 PM CDT us Bro Trejo MD CHEMISTRY ORDERABLES Edited [facility] CLIA# [id number] [address] [address] * (ABNORMAL) CBC WITH DIFFERENTIAL (04/08/2008 2:34 PM CDT) HEMOGLOBIN 13.7 11.8 - 14.8 g/dL [facility] RDW-STDEV 46.1 37.1 - 48.7 fL [facility] WBC 5.2 4.0 - 9.8 K/uL [facility] MCH 29.8 27.2 - 32.6 pg [facility] HEMATOCRIT 40.9 35.5 - 44.0 % [facility] PLATELETS 293 140 - 350 K/uL [facility] RBC 4.59 3.90 - 4.90 M/uL [facility] MCHC 33.5 31.5 - 35.5 % [facility] RDW 14.5 11.5 - 14.5 % [facility] MCV 89.1 82.0 - 99.0 fL [facility] MPV 9.6 9.3 - 12.4 fL [facility] BASOPHILS 1 0 - 2 % [facility] BASOPHILS ABSOLUTE 0.05 0.00 - 0.20 K/uL [facility] MONOCYTES 14(H) 3 - 13 % [facility] MONOCYTE ABSOLUTE 0.71 0.10 - 1.30 K/uL [facility] NEUTROPHILS 43(L) 45 - 70 % [facility] NEUTROPHIL ABSOLUTE 2.23 1.90 - 7.00 K/uL [facility] EOSINOPHILS 4 0 - 7 % [facility] EOSINOPHIL ABSOLUTE 0.19 0.00 - 0.70 K/uL [facility] LYMPHOCYTES 38 16 - 45 % [facility] LYMPHOCYTE ABSOLUTE 1.98 0.70 - 4.50 K/uL [facility] Blood specimen (specimen) 04/08/2008 2:34 PM CDT 04/08/2008 2:34 PM CDT us Bro Trejo MD HEMATOLOGY ORDERABLES Edited INTERFACE SYSTEM Refer to clinic/hospital department [facility] CLIA# [id number] [address] [address] documented in this encounter Visit Diagnoses Diagnosis Carcinoma in situ of breast documented in this encounter Care Teams Arboreal Scientist Relationship Specialty Start Date End Date Kimberley Rodriguez MD PCP - General 10/14/09 documented as of this encounter
--- OUTSIDE RECORDS SUMMARY | 2025-04-12 02:58 | XMS_ITS | Clinical Summary ---
Author Organization [facility] Administrative Offices Address [address] [place] [address] Care Team Providers Care Boat Cleaning Supervisor Name Role Phone Kimberley Rodriguez MD Primary Care Provider [phone] Allergies Active Allergy Reactions Criticality Noted Date [...] on file Legal Sex Female 5:34 AM CNC CUTTING OPERATOR Gender Identity Not on file Sexual Orientation Not on file Occupation Industry Job Start Date Job End Date Not on file Not on file Not on file Not on file Last Filed Vital Signs Vital Sign Reading Time Taken Comments Blood Pressure 130/78 11/30/2015 9:20 AM CNC CUTTING OPERATOR Pulse 64 11/30/2015 9:20 AM CNC CUTTING OPERATOR Temperature 36.7 C (98.1 F) 11/30/2015 9:20 AM CNC CUTTING OPERATOR Respiratory Rate 16 11/30/2015 9:20 AM CNC CUTTING OPERATOR Oxygen Saturation - - Inhaled Oxygen Concentration - - Weight 82.5 kg (181 lb 12.8 oz) 11/30/2015 9:20 AM CNC CUTTING OPERATOR Height 171.5 cm (5' 7.5) 11/30/2015 9:20 AM CNC CUTTING OPERATOR Body Mass Index 28.05 11/30/2015 9:20 AM CNC CUTTING OPERATOR Plan of Treatment Health Maintenance Due Date [...] of Phone Billing Address Personal/Family Self 1955 [phone] (Work) [address] [place] [address] [facility] [address] [employer] HMO OPEN ACCESS Member Subscriber Plan / Payer (Ef fective 2022-Present) Name:Virginia Calvin Relation to Subscriber:Spouse Name:THIEN CALVIN Date of :1944 (Home) [phone] (Work) Address: [address] [place], [place] [address] Payer ID:Not on file Type:O Address: [facility] [facility] [address] [place] [address] Care Teams Boat Cleaning Supervisor Relationship Specialty Start Date End Date Kimberley Rodriguez MD PCP - General 10/14/09
--- OUTSIDE RECORDS SUMMARY | 2025-04-12 02:58 | XMS_ITS | Encounter Summary ---
Author Organization [facility] Address [address] [place] [address] Care Team Providers Care Accounts Receivable Coordinator Name Role Phone Mike Boyd MD Unavailable [phone] Agustín Glasgow MD Primary Care Provider [phone] Encounter Details Date Type Department Care Team (Late st Contact Info) Description 03/18/2025 Results Follow-Up [facility] Primary Care at [address] [address] Agustín Glasgow MD [address] [place] [address] [address] [place] [address] CBC with auto differential, Comprehensive [...] on file Legal Sex Female 12:20 AM MANAGER CLIENT Gender Identity Female 10/18/2021 6:33 AM MANAGER CLIENT Sexual Orientation Straight 10/18/2021 6: 33 AM MANAGER CLIENT documented as of this encounter Ordered Prescriptions Prescription Sig Dispense Quantity Refills Last Filled Start Date End Date ezetimibe (Zetia) 10 mg tablet Take 1 tablet (10 mg total) by mouth daily 30 tablet 3 03/18/2025 documented in this encounter Plan of Treatment Not on file documented as of this encounter Visit Diagnoses Not on filedocumented in this encounter Care Teams Accounts Receivable Coordinator Relationship Specialty Start Date End Date Agustín Glasgow MD [address] [place] [address] PCP - General Family Medicine 06/12/24 Mike Boyd MD [address] [place] [address] [address] [place] [address] Surgeon Orthopedic Surgery 10/09/23 documented as of this encounter
--- OUTSIDE RECORDS SUMMARY | 2025-04-12 02:58 | XMS_ITS | Encounter Summary ---
Author Organization [facility] Address 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 TECHNICIAN Gender Identity Not on file Sexual [...] CDT) CALCIUM 9.6 8.6 - 10.2 mg/dL [facility] ALBUMIN 4.1 3.4 - 4.8 g/dL [facility] CREATININE 0.55 0.51 - 0.95 mg/dL [facility] ALT 24 0 - 31 U/L [facility] CO2 19(L) 22 - 30 mmol/L [facility] SODIUM 135 135 - 145 mmol/L [facility] ALKALINE PHOSPHATASE 64 35 - 104 U/L [facility] POTASSIUM 3.2(L) 3.5 - 4.9 mmol/L [facility] BILIRUBIN TOTAL 0.5 0.2 - 1.0 mg/dL [facility] TOTAL PROTEIN 8.1 6.3 - 8.6 g/dL [facility] GLUCOSE 119(H) 65 - 99 mg/dL [facility] AST 30 12 - 32 U/L [facility] BUN 11 6 - 20 mg/dL [facility] CHLORIDE 100 96 - 108 mmol/L [facility] GFR, >60 >=60 mL/min/1. 7 sq meter [facility] GFR >60 >=60 mL/min/1. 7 sq meter [facility] Comment: Modification of Diet in Renal Disease (MDRD) study formula. Estimated GFR rate interpretative information for both Americans and non- Americans is available on the [facility] Intranet at: [email or web address] Select: Lab Policies and Procedures Select: Reference Ranges - GFR 04/12/2009 3:14 PM CDT 04/12/2009 3:20 PM CDT us Bro Trejo MD CHEMISTRY ORDERABLES Edited INTERFACE SYSTEM Refer to clinic/hospital department [facility] CLIA# [id number] [address] [place] [address] * (ABNORMAL) CBC WITH DIFFERENTIAL (04/12/2009 3:14 PM CDT) WBC 4.4 4.0 - 9.8 K/uL [facility] MCH 30.6 27.2 - 32.6 pg [facility] MPV 10.4 9.3 - 12.4 fL [facility] HEMATOCRIT 42.6 35.5 - 44.0 % [facility] RDW-STDEV 44.9 37.1 - 48.7 fL [facility] RBC 4.71 3.90 - 4.90 M/uL [facility] MCHC 33.8 31.5 - 35.5 % [facility] MCV 90.4 82.0 - 99.0 fL [facility] PLATELETS 269 140 - 350 K/uL [facility] HEMOGLOBIN 14.4 11.8 - 14.8 g/dL [facility] RDW 13.5 11.5 - 14.5 % [facility] LYMPHOCYTE ABSOLUTE 2.11 0.70 - 4.50 K/uL [facility] BASOPHILS 1 0 - 2 % [facility] BASOPHILS ABSOLUTE 0.06 0.00 - 0.20 K/uL [facility] MONOCYTES 8 3 - 13 % [facility] MONOCYTE ABSOLUTE 0.35 0.10 - 1.30 K/uL [facility] NEUTROPHILS 33(L) 45 - 70 % [facility] NEUTROPHIL ABSOLUTE 1.46(L) 1.90 - 7.00 K/uL [facility] EOSINOPHILS 10(H) 0 - 7 % [facility] EOSINOPHIL ABSOLUTE 0.45 0.00 - 0.70 K/uL [facility] LYMPHOCYTES 48(H) 16 - 45 % [facility] 04/12/2009 3:14 PM CDT 04/12/2009 3:20 PM CDT us Bro Trejo MD HEMATOLOGY ORDERABLES Edited INTERFACE SYSTEM Refer to clinic/hospital department [facility] CLIA# [id number] [address] [place] [address] documented in this encounter Visit Diagnoses Diagnosis Carcinoma in situ of breast documented in this encounter Care Teams Board Worker Relationship Specialty Start Date End Date Kimberley Rodriguez MD PCP - General 10/14/09 documented as of this encounter
--- OUTSIDE RECORDS SUMMARY | 2025-04-12 02:58 | XMS_ITS ---
Author Organization [facility] Address [address] [place] [address] Care Team Providers Care Metal Window Screen Assembler Name Role Phone Mike Boyd MD Unavailable [phone] Agustín Glasgow MD Primary Care Provider Active Problems Problem Noted Date Diagnosed Date Statin myopathy 10/14/2024 06/19/2024 History of colonic polyps 09/17/2024 Encounter for screening colonoscopy 09/17/2024 Encounter for Medicare annual wellness exam 03/2024 Assessment & Plan (09/16/2024 8:58 AM AEROPHYSICIST): A(n) yearly Medicare Annual Wellness Visit has [...]
== END 2025-04-12 03:04 | disposition left against medical advice (07) ==
LOC: ANHED 04-12 02:56
PROVIDERS: PCP Nurse Practitioner Family
DX: M54.50 Low back pain, unspecified (principal)
CPT/HCPCS: 99199